=== PATIENT | female | born 1940 | race Caucasian/White ===

== ENCOUNTER → 2025-02-15 | Outpatient (CLI) | payer MEDICARE, BC, SELFPAY ==
[2025-02-15 14:27] LABS: Basophils # (Auto) 0.1 Thou/mm3 (0.0-0.2); Basophils % (Auto) 1 % (0-2.5); Eosinophils % (Auto) 1 % (0-10); Hematocrit 43.7 % (36.0-46.0); Hemoglobin 15.1 g/dL (12.0-16.0); Immature Granulocytes % (Auto) 0 % (0-0); Immature Granulocytes Auto 0.01 Thou/mm3 (0.00-0.00); Lymphocytes # (Auto) 1.2 Thou/mm3 (1.0-4.8); Lymphocytes % (Auto) 20 % (10-50); Mean Corpuscular HGB Conc 34.6 g/dl (31.0-37.0); Mean Corpuscular Hemoglobin 34.1 pg (25.0-35.0); Mean Corpuscular Volume 99 fL (80-100); Monocytes # (Auto) 0.5 Thou/mm3 (0.0-0.8); Monocytes % (Auto) 7 % (0-12); Neutrophils # (Auto) 4.5 Thou/mm3 (1.8-7.7); Neutrophils % (Auto) 71 % (37-80); Nucleated Red Blood Cell % 0 /100 WBC (0); Platelet Count 259 Thou/mm3 (140-440); RDW Standard Deviation 46.5 fL (36.4-46.3); Red Blood Count 4.43 Miln/mm3 (4.00-5.20); White Blood Count 6.3 Thou/mm3 (3.6-11.0)
[2025-02-15 14:34] LABS: Sed Rate (ESR) 10 mm/hr (0-30)
[2025-02-15 14:54] LABS: Alanine Aminotransferase < 7 U/L (10-49); Albumin, Serum 4.1 gm/dL (3.4-4.8); Albumin/Globulin Ratio 1.6 (1.2-2.2); Alkaline Phosphatase 77 U/L (46-116); Anion Gap 10 (7-16); Aspartate Amino Transferase 15 U/L (0-34); BUN/Creatinine Ratio 20 Ratio (12-20); Bilirubin,Total 0.8 mg/dL (0.3-1.2); Blood Urea Nitrogen 14 mg/dL (9-23); Carbon Dioxide 29.3 mMol/L (20.0-31.0); Chloride 105 mMol/L (98-107); Creatinine (Component) 0.7 mg/dL (0.6-1.3); Globulin 2.6 gm/dL (2.3-3.5); Glucose 109 mg/dL (74-106); Osmolality,Calculated 288 (275-295); Potassium 4.2 mMol/L (3.4-5.1); Sodium 144 mMol/L (136-145); Thyroid Stimulating Hormone 1.89 uIU/mL (0.55-4.78); Total Protein 6.7 gm/dL (5.7-8.2); eGFR > 60 See Note
== END | disposition home or self-care (01) ==
LOC: COPL 13:45
PROVIDERS: PCP Internal Medicine; Referring Provider Internal Medicine; Visit Provider Internal Medicine
DX: E03.9 Hypothyroidism, unspecified (principal)
CPT/HCPCS: 36415; 80053; 84443; 85025; 85652

== ENCOUNTER 2025-06-08 15:29 | Inpatient (IN) | payer MEDICARE, BC, SELFPAY ==
[2025-06-08] VITALS (19 sets, daily range): BP systolic 95–150; BP diastolic 69–90; PULSE 79–109; RESP 14–85; TEMP 36.2–36.4; O2SAT 75–100; BMI 36.2
--- NOTE | 2025-06-08 15:31 | EKG_ITS ---
[facility] Test Date: 2025-06-08 Pat Name: MEGHNA OLIVEROS Department: Room: - Gender: Female Security Incident Response Specialist: : 1940 Requested By: Dany Sales Order Number: [id number] Reading MD: Dany Sales Measurements Intervals [place] Rate: 101 P: 48 VT: 222 QRS: -70 QRSD: 115 T: 94 QT: 393 QTc: 511 Interpretive Statements SINUS TACHYCARDIA WITH FIRST DEGREE AV BLOCK WITH OCCASIONAL VENTRICULAR PREMATURE COMPLEXES LEFT AXIS DEVIATION [QRS AXIS < -30] LEFT VENTRICULAR HYPERTROPHY AND ST-T CHANGE [VOLTAGE CRITERIA PLUS ST/T ABNORMALITY] ANTERIOR MYOCARDIAL INFARCTION , PROBABLY RECENT [40+ ms Q WAVE AND/OR ST/T ABNORMALITY IN V3/V4] ACUTE NV No previous ECG available for comparison /store/S0/[id number].pdf
--- NOTE | 2025-06-08 15:32 | EDNOTE_ITS ---
ED SOB =RME/HPI General Chief Complaint: Shortness of Breath/Dyspnea Stated Complaint: SOB Time Seen by Provider: 06/08/25 15:31 Arrival date/time: 06/08/25 15:29 Limitations: no limitations RME / HPI RME / HPI Narrative: DR. AVILA MAIN ED EVALUATION: 84-year-old female with a history of hypertension, diabetes, glaucoma, and hypothyroidism, on medications including enalapril, furosemide, levothyroxine, metoprolol, potassium chloride, and prednisone, presents to the Emergency Department [facility] for shortness of breath and generalized weakness ongoing for a over a week but worse in the last couple of days. She went to see her stamp analyst Dr. Reddy about a week ago but symptoms are still getting worse. On EMS arrival, she was tachycardic to 108 bpm and hypoxic with O2 saturations between 72?75% while on a non-rebreather mask at 6 L. Allergies include codeine (severe breathing difficulty), erythromycin (rash, itching), penicillins (rash, swelling), benzonatate, ciprofloxacin, and levofloxacin (stiff joints, paralysis). Related Data Home Medications ?Medication ?Instructions ?Recorded ?Confirmed enalapril maleate 20 mg tablet 20 mg PO BID 11/20/18 0 06/08/25 furosemide 20 mg tablet (Lasix) 40 mg PO QDAY 11/20/18 06/08/25 levothyroxine 75 mcg capsule 75 mcg PO QDAY 11/20/18 0 06/08/25 metoprolol succinate 100 mg 100 mg PO BID 11/20/18 tablet,extended release 24 hr potassium chloride 20 mEq 20 meq PO QDAY 11/20/1805/18 tablet,extended release Held on 06/08/25. Instructions: stopped taking lasix prednisone 5 mg tablet 5 mg PO QDAY 11/20/18 Allergies Allergy/AdvReac Type Severity Reaction Status Date / Time codeine Allergy Severe SEVERE Verified 06/08/25 15:54 DIFF. BREATHING erythromycin base Allergy Intermediate RASH,ITCHIN Verified 06/08/25 15:54 G Penicillins Allergy Intermediate RASH,SWELLI Verified 06/08/25 15:54 NG benzonatate (From Tessalon Allergy Verified 06/08/25 15:54 Basil) ciprofloxacin (From Cipro) Allergy Verified 06/08/25 15:54 levofloxacin AdvReac Severe STIFF Verified 06/08/25 15:54 JOINTS,PARALYZED latex AdvReac Intermediate RASH Verified 06/08/25 15:54 Review of Systems Review of Systems Systems Reviewed: All systems reviewed, normal except as documented Past Medical History Social History SMOKING STATUS: Never smoker SUBSTANCE USE: does not use ALCOHOL: Never ED Exam General Limitations: Present no limitations General appearance: Present alert and in distress (hypoxic, 72-75% while on a non-rebreather mask at 6 L) Head Head exam: Present atraumatic, normocephalic and normal inspection Eye Eye exam: Present normal appearance, PERRL and EOMI ENT ENT exam: Present normal exam, normal oropharynx and mucous membranes moist Neck Neck exam: Present normal inspection, full ROM and trachea midline Chest Chest inspection: Present normal inspection and symmetric chest wall rise Respiratory Respiratory exam: Present respiratory distress (hypoxic at 72-75% while on a non-rebreather mask at 6 L) Cardiovascular Cardiovascular exam: Present normal rhythm, tachycardia and normal heart sounds Abdominal Exam Abdominal exam: Present soft and normal bowel sounds Extremities Exam Extremities exam: Present normal inspection and full ROM Back Exam Back exam: Present normal inspection and full ROM Neurological Exam Neurological exam: Present alert, oriented X3 and CN II-XII intact Psychiatric Psychiatric exam: Present normal affect and normal mood Skin Skin exam: Present warm, dry, intact and normal color Course Quality Measures none Orders Category Date Time Status CT Screening NOW Care 06/08/25 15:34 Active Coating Machine Operator Helper NOW Care 06/08/25 15:32 Active Continuous Pulse Oximetry NOW Care 06/08/25 15:31 Completed EKG (ED ONLY) *Do not use* NOW Care 06/08/25 15:32 Completed EKG (ED ONLY) *Do not use* NOW Care 06/08/25 17:09 Completed Pierre [Urinary Catheter] QS Care 06/08/25 16:18 Active Insert IV NOW Care 06/08/25 16:[address] angio chest Stat Exams 06/08/25 15:31 Completed EKG (ED Only) Stat Exams 06/08/25 15:31 Draft EKG (ED Only) Stat Exams 06/08/25 17:09 Draft XR chest 1V portable Stat Exams 06/08/25 15:31 Completed Arterial Blood Gas Stat Lab 06/08/25 15:53 Completed B-Type Natriuretic Peptide Stat Lab 06/08/25 15:45 Completed Blood Culture (Lab) Stat Lab 06/08/25 15:50 Received CBC Stat Lab 06/08/25 15:45 Completed Carboxyhemoglobin Stat Lab 06/08/25 15:45 Completed Comprehensive Metabolic Panel Stat Lab 06/08/25 15:45 Completed Drug Screen,Urine Stat Lab 06/08/25 16:37 Completed Free T4 (Free Thyroxine) Stat Lab 06/08/25 15:45 Completed Magnesium Stat Lab 06/08/25 15:45 Completed PTT [Partial Thromboplastin Time] Stat Lab 06/08/25 18:13 Completed Prothrombin Time with INR Stat Lab 06/08/25 15:45 Completed Troponin I Stat Lab 06/08/25 15:45 Completed Troponin I Stat Lab 06/08/25 18:13 Completed Urinalysis, C/S if Indicated Stat Lab 06/08/25 16:37 Completed Urine Culture Stat Lab 06/08/25 16:37 Received Aspirin Med 06/08/25 16:58 Discontinued 325 mg PO X1 ONE Heparin Inj Med 06/08/25 16:58 Discontinued 4,000 unit IV X1 ONE Heparin Inj Med 06/08/25 19:00 Discontinued 7,900 unit IV X1 ONE Heparin/D5w 25K 250 ML Ivpb [Heparin in D5w Ivpb] Med 06/08/25 17:00 Discontinued 25,000 unit in 250 ml IV 10.113 units/kg/hr Heparin/D5w 25K 250 ML Ivpb [Heparin in D5w Ivpb] Med 06/08/25 17:45 Discontinued 25,000 unit in 250 ml IV 18 units/kg/hr POTASSIUM CHL 10 mEq IVPB [Kcl Ivpb] Med 06/08/25 17:16 Discontinued 10 meq in 100 ml IV Q1H Potassium Chloride [K-Dur] Med 06/08/25 17:16 Discontinued 40 meq PO X1 ONE Oxygen Delivery NOW RT 06/08/25 15:31 Active Vital Signs Vital signs: Vital Signs Pulse Rate 107 H 06/08/25 15:31 Respiratory Rate 24 H 06/08/25 15:31 Blood Pressure 110/69 06/08/25 15:31 Pulse Oximetry (%) 75 L 06/08/25 15:31 Oxygen Delivery Method Nasal Cannula 06/08/25 15:31 Oxygen Flow Rate 6 06/08/25 15:31 Shortness of Breath / Dyspnea MDM Narrative MDM Narrative:: I, Sona Akhtar, am scribing for and in the presence of Dr. Avila. 84-year-old female with a history of hypertension, diabetes, glaucoma, and hypothyroidism, on medications including enalapril, furosemide, levothyroxine, metoprolol, potassium chloride, and prednisone, presents to the Emergency Department [facility] for shortness of breath and generalized weakness ongoing for a over a week but worse in the last couple of days. She went to see her stamp analyst Dr. Reddy about a week ago but still getting worse. The patient presents in significant hypoxic respiratory distress with a history and exam findings concerning for acute decompensated heart failure versus an infectious process such as pneumonia. Given her high oxygen requirement and bilateral lower extremity edema, fluid overload with possible heart failure exacerbation is likely. Broad workup including labs, chest X-ray, and chest CTA will be ordered, with ECG monitoring given her tachycardia and cardiac history. Consider IV diuretics and advanced airway management if respiratory status worsens. My interpretation: EKG performed at 1553 hours, sinus tachycardia, rate 101, left axis deviation, LVH, Q wave in lead 3, AVF, and V1-V3; ST elevation in V1- V6 and in inferior leads; reciprocal ST depression in lead 1 and AVL. Discussed the case with stamp analyst Dr. Alejandre at [facility] and following their recommendations. Since there are Q waves then it is not an acute STEMI and no need for corn lab technician at this time. Also, discussed the case with car diologist Dr. Pradhan, who will consult an admission to the hospitalist. We will order a chest CTA and re-evaluate. Patient data External records reviewed:: [facility] previous records and EMS form Clinical information provided by:: patient and EMS Social determinants that could affect healthcare access:: none Patient has the following chronic illnesses:: History of hypertension, diabetes, glaucoma, and hypothyroidism, on medications including enalapril, furosemide, levothyroxine, metoprolol, potassium chloride, and prednisone. Allergies include codeine (severe breathing difficulty), erythromycin (rash, itching), penicillins (rash, swelling), benzonatate, ciprofloxacin, and levofloxacin (stiff joints, paralysis). How is presenting disease/condition affected by chronic disease/condition?: exacerbated by Evaluation data The following diagnostics were reviewed and interpreted by me:: lab results, radiology exam(s) and EKG tracing(s) Lab and/or radiology exams considered but not ordered:: none Interpretation Summary: My interpretation: EKG performed at 1553 hours, sinus tachycardia, rate 101, left axis deviation, LVH, Q wave in lead 3, AVF, and V1-V3; ST elevation in V1- V6 and in inferior leads; reciprocal ST depression in lead 1 and AVL. Procedure(s): XR chest 1V portable Accession Number(s): [id number] cc: Jere Ellis MD; NO PRIMARY/FAMILY,PHYSICIAN; Dany Avila MD~ Examination: AP chest single view TECHNIQUE: AP portable upright chest single view Date and time: June 08, 2025, 1612 hours, INDICATIONS: Low O2 saturation, SOB today. FINDINGS: Mild to moderate enlargement cardiac contour Large retrocardiac gastric hernia. No pulmonary edema or pneumonia. Prominent osteopenia IMPRESSION: Mild to moderate enlargement cardiac contour. No pulmonary edema or pneumonia. Dictated By: Jere Ellis MD -- Procedure(s): CT angio chest Accession Number(s): [id number] cc: Jere Ellis MD; NO PRIMARY/FAMILY,PHYSICIAN; Dany Avila MD~ Examination: CTA chest with intravenous contrast 2-D reconstructions 3-D reconstructions, vascular Date and time of exam: June 08, 2025, 1700 hours INDICATIONS: Onset shortness of breath hypoxia today CTDI: vol (mGy) 15 DLP: (mGycm) 339 Technique: Multiple axial sections of the thorax have been obtained. 3 mm slice thickness, from below the hemidiaphragms to above the apices of the lungs. Mediastinal and lung density settings have been obtained. 2-D sagittal and coronal reconstructions. 3-D angiographic renderings, 3-D volume renderings, 3D post processing, vascular maximum intensity projections obtained. Contrast administered is 100 cc Isovue 370 intravenous. Low dose protocols were performed. One or more of the following dose reduction techniques were used; automated exposure control, adjustment of the mA and/or KV according to patient size, use of iterative reconstruction technique. Findings: Large multiple bilateral pulmonary artery emboli, including saddle type emboli in the right and left main pulmonary artery segments No thoracic aortic aneurysmal dilatation Moderate enlargement cardiac contour, no shawn pulmonary edema, no pulmonary infarction Liver is irregular in contour, no visualized liver or splenic lesions Moderate osteopenia IMPRESSION: Positive for large multiple bilateral pulmonary artery emboli, including saddle type emboli in the right and left main pulmonary artery segments Dictated By: Jere Ellis MD Medications / Prescriptions Medications or Prescriptions considered but not ordered:: none Medication administrations:: Medication Administration History Acetaminophen (Acetaminophen 325 Mg Tablet) 650 mg PO Q4HR PRN PRN Reason: Pain Scale 1-3 or Fever Stop: 07/08/25 18:12 Furosemide (Furosemide Inj 10 Mg/Ml Vial 2 Ml) 20 mg IVP QDAY KARINA Stop: 07/09/25 11:44 Last Admin: 06/09/25 11:50 Dose: 20 mg Documented By: [employer] Heparin Sodium/Dextrose (Heparin In D5w Ivpb) 25,000 unit in 250 mls @ 17.997 m ls/hr IV .[id number] KARINA; Protocol Stop: 06/23/25 11:59 Last Admin: 06/09/25 11:54 Dose: 17.89 units/kg/hr, 17.997 mls/hr Documented By: LONNIE Co-signed By: DALIA Levothyroxine Sodium (Levothyroxine Sodium 25 Mcg Tablet) 75 mcg PO ACBR KARINA Stop: 07/09/25 07:04 Last Admin: 06/09/25 08:27 Dose: 75 mcg Documented By: LONNIE Pantoprazole Sodium (Pantoprazole Inj 40 Mg Vial) 40 mg IVP QDAY [facility] Stop: 07/09/25 08:59 Last Admin: 06/09/25 08:29 Dose: 40 mg Documented By: LONNIE Prednisone (Prednisone 5 Mg Tablet) 5 mg PO QDAY [facility] Stop: 07/09/25 11:44 Last Admin: 06/09/25 11:51 Dose: 5 mg Documented By: LONNIE Discontinued Medications Aspirin (Aspirin 325 Mg Tablet) 325 mg PO X1 ONE Stop: 06/08/25 16:59 Last Admin: 06/08/25 18:25 Dose: Not Given Documented By: GERBER Non-Admin Reason: Unable to Swallow Aspirin (Aspirin 81 Mg Chew) 324 mg PO X1 ONE Stop: 06/08/25 18:27 Last Admin: 06/08/25 19:47 Dose: Not Given Documented By: BD Non-Admin Reason: Cancelled by Provider Heparin Sodium (Porcine) (Heparin Sod Inj 5000 Unit/Ml Vial) 4,000 unit IV X1 ONE; Protocol Stop: 06/08/25 16:59 Last Admin: 06/08/25 18:29 Dose: Not Given Documented By: DB Non-Admin Reason: Cancelled by Provider Heparin Sodium (Porcine) (Heparin Sod Inj 5000 Unit/Ml Vial) 7,900 unit 80 unit/kg (7900 unit) IV X1 ONE; Protocol Stop: 06/08/25 19:01 Last Admin: 06/08/25 20:26 Dose: Not Given Documented By: BD Non-Admin Reason: Cancelled by Provider Heparin Sodium (Porcine) (Heparin Sod Inj 5000 Unit/Ml Vial) 8,000 unit IV PRN ONE Stop: 06/09/25 11:40 Last Admin: 06/09/25 11:54 Dose: 8,000 unit Documented By: LONNIE Co-signed By: DALIA Comments: 26.4 Heparin Sodium/Dextrose (Heparin In D5w Ivpb) 25,000 unit in 250 mls @ 10 mls/hr IV .Q24H KARINA; Protocol Stop: 06/22/25 16:59 Last Admin: 06/08/25 18:29 Dose: Not Given Documented By: GERBER Non-Admin Reason: Cancelled by Provider Potassium Chloride (Kcl Ivpb) 10 meq in 100 mls @ 100 mls/hr IV Q1H KARINA Stop: 06/08/25 19:15 Last Infusion: 06/08/25 21:24 Dose: Infused Documented By: Admin: 06/08/25 20:04 Dose: 75 mls/hr Documented By: Infusion: 06/08/25 19:51 Dose: Infused Documented By: Infusion: 06/08/25 18:59 Dose: 75 mls/hr Documented By: Admin: 06/08/25 18:38 Dose: 100 mls/hr Documented By: GERBER Heparin Sodium/Dextrose (Heparin In D5w Ivpb) 25,000 unit in 250 mls @ 17.799 mls/hr IV .Q14H3M KARINA; Protocol Stop: 06/22/25 17:44 Last Admin: 06/08/25 19:32 Dose: Not Given Documented By: BD Non-Admin Reason: Cancelled by Provider Sodium Chloride (Ns) 250 mls @ 100 mls/hr IV .Q2H30M ONE Stop: 06/08/25 20:47 Last Admin: 06/08/25 18:37 Dose: 100 mls/hr Documented By: GERBER Heparin Sodium/Dextrose (Heparin In D5w Ivpb) 25,000 unit in 250 mls @ 17.799 mls/hr IV .Q14H3M KARINA; Protocol Stop: 06/22/25 18:59 Last Admin: 06/08/25 20:26 Dose: Not Given Documented By: BD Non-Admin Reason: Cancelled by Provider Potassium Chloride (Kcl Ivpb) 10 meq in 100 mls @ 100 mls/hr IV Q1H KARINA Stop: 06/09/25 00:31 Last Admin: 06/09/25 04:00 Dose: 50 mls/hr Documented By: Infusion: 06/09/25 03:58 Dose: Infused Documented By: Admin: 06/09/25 01:58 Dose: 50 mls/hr Documented By: Infusion: 06/09/25 01:55 Dose: Infused Documented By: Admin: 06/08/25 23:55 Dose: 50 mls/hr Documented By: Infusion: 06/08/25 23:55 Dose: Infused Documented By: Admin: 06/08/25 22:07 Dose: 50 mls/hr Documented By: Pantoprazole Sodium (Pantoprazole 20 Mg Tablet) 20 mg PO X1 ONE Stop: 06/08/25 19:30 Last Admin: 06/08/25 19:54 Dose: Not Given Documented By: BD Non-Admin Reason: NPO Potassium Chloride (Potassium Chloride 20 Meq Tabcr) 40 meq PO X1 ONE Stop: 06/08/25 17:17 Last Admin: 06/08/25 18:24 Dose: Not Given Documented By: DB Non-Admin Reason: Unable to Swallow Tenecteplase (Tenecteplase Inj 50 Mg Vial) 50 mg IV X1 ONE Stop: 06/08/25 20:28 Last Admin: 06/08/25 21:52 Dose: 50 mg Documented By: Co-signed By: RENEE see above if any Consultations Consultation(s) initiated? (list below): Yes Consultation #1 (Physician, Specialty, Details): [facility] contacted for ND and EKG sent. Time: 16:21 Consultation #2 (Physician, Specialty, Details): At this time, we are still waiting for call back for stamp analyst at [facility]. Time: 16:40 Consultation #3 (Physician, Specialty, Details): 1652: Discussed test HPI, PMHx, lab, radiology results and/or management with stamp analyst Dr. Alejandre at [facility] and following their recommendations. Since there are Q waves then it is not an acute STEMI and no need for corn lab technician at this time. 1655: Discussed test HPI, PMHx, lab, radiology results and/or management with stamp analyst Dr. Pradhan. Will consult an admission to the hospitalist. 1746: Discussed test HPI, PMHx, lab, radiology results and/or management dry starch supervisor Dr. Lopez. Will consult an admission to the hospitalist. Diagnosis Shortness of Breath Differential Diagnosis: other (Acute decompensated heart failure, pneumonia, and pulmonary embolism.) Most likely diagnosis given after review of the tests above:: Pulmonary embolism Hypoxia Admission Indicated Admission indicated?: indicated Admission Request Was there a request for admission?: No Disposition Plan Disposition Plan: Discharge Discharge Attestation Discharge Attestation: The patient and all family members were given an opportunity to ask questions and understood the discharge instructions. Discharge instructions specifically effects, indications for sooner follow up or return to the emergency department, and the expected course of current diagnosis. Patient condition: Stable Critical Care Time Critical Care Time Critical Care Time: Yes Total Critical Care Time (min.): 65 Attestation: The high probability of sudden, clinically significant deterioration in the patient?s condition required the highest level of my preparedness to intervene urgently. The services I provided to this patient were to treat and/or prevent clinically significant deterioration. Services included the following: chart data review, reviewing nursing notes and/or old charts, documentation time, managing consultant collaboration regarding findings and treatment options, medication orders and management, direct patient care, vital sign assessments and ordering, interpreting and reviewing diagnostic studies and lab tests. Aggregate critical care time includes only time during which I was engaged in work directly related to the patient?s care, as described above, whether at bedside or elsewhere in the Emergency Department. It did not include time spent performing other reported procedures or the services of residents, students, nurses or physician assistants. Discharge Plan Plan Patient Disposition: Admit Acute Care w/in Hospital Problem List Clinical Impression: Myocardial infarction, Pulmonary embolism, Acute saddle pulmonary embolism, Hypoxia
[2025-06-08 16:01] LABS: Base Excess 4 (-3-3); HCO3 26 mEq/L (20-26); Inspired Oxygen, FIO2 15 %; O2 Saturation 82 % (91-98); PCO2 33 mmHg (32.0-48.0); pH, Arterial 7.51 (7.35-7.45)
[2025-06-08 16:04] LABS: Allen Test Performed/OK; Puncture Site Right Radial
[2025-06-08 16:04] LABS: Carboxyhemoglobin 3.7 % (0.5-1.5)
[2025-06-08 16:05] LABS: Basophils # (Auto) 0.0 Thou/mm3 (0.0-0.2); Basophils % (Auto) 0 % (0-2.5); Eosinophils # (Auto) 0.0 Thou/mm3 (0.0-0.5); Eosinophils % (Auto) 0 % (0-10); Hematocrit 44.2 % (36.0-46.0); Hemoglobin 15.2 g/dL (12.0-16.0); Immature Granulocytes Auto 0.02 Thou/mm3 (0.00-0.00); Lymphocytes # (Auto) 1.5 Thou/mm3 (1.0-4.8); Lymphocytes % (Auto) 16 % (10-50); Mean Corpuscular HGB Conc 34.4 g/dl (31.0-37.0); Mean Corpuscular Hemoglobin 33.9 pg (25.0-35.0); Mean Corpuscular Volume 99 fL (80-100); Monocytes # (Auto) 0.9 Thou/mm3 (0.0-0.8); Monocytes % (Auto) 10 % (0-12); Neutrophils # (Auto) 6.7 Thou/mm3 (1.8-7.7); Neutrophils % (Auto) 73 % (37-80); Nucleated Red Blood Cell # 0.00 Thou/mm3 (0.00-0.00); Nucleated Red Blood Cell % 0 /100 WBC (0); Platelet Count 207 Thou/mm3 (140-440); RDW Standard Deviation 47.6 fL (36.4-46.3); Red Blood Count 4.48 Miln/mm3 (4.00-5.20); White Blood Count 9.2 Thou/mm3 (3.6-11.0)
[2025-06-08 16:06] LABS: PO2 44 mmHg (83-108)
[2025-06-08 16:22] LABS: B-Type Natriuretic Peptide 323 pg/mL (0-100)
[2025-06-08 16:23] LABS: INR 1.2 (0.9-1.3); Prothrombin Time 12.6 Seconds (9.0-12.2)
--- NOTE | 2025-06-08 16:27 | PC.CM ---
Addendum entered by Jhonny Rice RN 06/08/25 17:12: 1700- Received call from Dr. Noriega in ER, he has spoken to manager beverage at [facility] and was informed that patient is not having a STEMI and that they are not a candidate for the SEAL DELIVERY VEHICLE OFFICER at this time. He was provided with recommendations and he will implement those and consult with cardiology. Hold transfer at this time. Original Note: 1600- Received call from ER CN, requesting to start transfer for STEMI. Packet created and sent to [facility] via [employer], spoke with SONYA Crowe and provided clinical information. She will review with her team and call us back.
[2025-06-08 16:43] LABS: Alanine Aminotransferase 17 U/L (10-49); Albumin, Serum 4.1 gm/dL (3.4-4.8); Albumin/Globulin Ratio 1.5 (1.2-2.2); Alkaline Phosphatase 83 U/L (46-116); Anion Gap 15 (7-16); Aspartate Amino Transferase 40 U/L (0-34); BUN/Creatinine Ratio 21 Ratio (12-20); Bilirubin,Total 0.8 mg/dL (0.3-1.2); Blood Urea Nitrogen 21 mg/dL (9-23); Calcium 9.7 mg/dL (8.3-10.6); Calcium (Corrected) 9.7 mg/dL (8.5-10.1); Carbon Dioxide 25.8 mMol/L (20.0-31.0); Chloride 96 mMol/L (98-107); Creatinine (Component) 1.0 mg/dL (0.6-1.3); Estimated Creatinine Clearance 47.0 mL/min (>60); Free T4 (Free Thyroxine) 1.60 ng/dL (0.89-1.76); Globulin 2.8 gm/dL (2.3-3.5); Glucose 144 mg/dL (74-106); Magnesium 2.1 mg/dL (1.6-2.6); Osmolality,Calculated 279 (275-295); Potassium 2.8 mMol/L (3.4-5.1); Sodium 137 mMol/L (136-145); Total Protein 6.9 gm/dL (5.7-8.2); eGFR 55 See Note
[2025-06-08 16:46] LABS: Troponin I 0.307 ng/mL (0.0-0.045)
[2025-06-08 16:52] LABS: Collection Type, Urine Catheter
--- NOTE | 2025-06-08 17:09 | EKG_ITS ---
[facility] Test Date: 2025-06-08 Pat Name: MEGHNA OLIVEROS Department: Room: - Gender: Female Acute Care Physician: : 1940 Requested By: Dany Sales Order Number: [id number] Reading MD: Dany Sales Measurements Intervals [place] Rate: 96 P: 66 LA: 222 QRS: -66 QRSD: 126 T: 119 QT: 359 QTc: 455 Interpretive Statements SINUS RHYTHM WITH FIRST DEGREE AV BLOCK LEFT AXIS DEVIATION [QRS AXIS < -30] LEFT VENTRICULAR HYPERTROPHY AND ST-T CHANGE [VOLTAGE CRITERIA PLUS ST/T ABNORMALITY] POSSIBLE ANTERIOR MYOCARDIAL INFARCTION , OF INDETERMINATE AGE [30 ms Q WAVE IN V3/V4, OR R < 0.2 mV IN V4] Compared to ECG 06/08/2025 15:53:55 Sinus tachycardia no longer present Ventricular premature complex(es) no longer present ST (T wave) deviation still present Myocardial infarct finding still present /store/S0/[id number]/[id number]
[2025-06-08 17:10] LABS: Amphetamine/Methamp Scrn,U Negative (Negative); Barbiturate Screen,Urine Negative (Negative); Benzodiazepines Screen,Urine Negative (Negative); Benzoylecgonine Screen, Ur Negative (Negative); Fentanyl Screen,Urine Negative (Negative); Opiate Screen,Urine Negative (Negative); THC Screen,Urine Negative (Negative)
[2025-06-08 17:26] LABS: Amorphous Crystals,Urine Present (Absent); Bacteria,Urine 3+; Bilirubin,Urine Negative (Negative); Blood,Urine Negative (Negative); Clarity,Urine Turbid (Clear/Hazy); Color,Urine Yellow (Lt Yel-Yel); Glucose, Urine Negative (Negative); Granular Casts,Urine 1 /hpf (0-1); Hyaline Casts,Urine 2 /hpf (0-1); Ketones,Urine Negative (Negative); Leukocyte Esterase,Urine Positive (Negative); Nitrite,Urine Negative (Negative); PH,Urine 5.5 (5.0-7.0); Protein,Urine Trace (Neg - Trace); RBC,Urine 4 /hpf (0-3); Specific Gravity,Urine 1.019 (1.001-1.035); Squamous Epithelial Cell,Urine 1 /hpf (0-5); Urobilinogen,Urine 2.0 mg/dL (0.0-1.0); WBC,Urine 118 /hpf (0-5)
[2025-06-08 17:31] LABS: Culture Indicated,Urine Yes
[2025-06-08] MEDS: SODIUM CHLORIDE 0.9% 250 ML 250 ML 100 ML IV (18:37)
[2025-06-08] MEDS: POTASSIUM CHL 10 mEq IVPB 10 MEQ/100 ML BAG 100 MEQ IV (18:38)
[2025-06-08 18:49] LABS: Partial Thromboplastin Time 27.1 Seconds (22.0-36.0)
[2025-06-08 19:04] LABS: Troponin I 0.720 ng/mL (0.0-0.045)
[2025-06-08 19:06] LABS: Lactate (Lactic Acid) 2.0 mMol/L (0.4-2.0)
--- NOTE | 2025-06-08 19:24 | ECHO_ITS ---
Transthoracic Echo Report Ht (in): 65 Wt (lb): 218 Exam Location: Echo Lab Status: Inpatient [employer] History Teacher: Rebeca Crews Indications: Procedure Performed: BP: 111 / 85 HR: Technical Quality: Technically difficult study MEASUREMENTS (Male / Female) Normal Values 2D ECHO LV Diastolic Diameter PLAX 4.2 cm 4.2 - 5.9 / 3.9 - 5.3 cm LV Systolic Diameter PLAX 2.9 cm IVS Diastolic Thickness 0.9 cm 0.6 - 1.0 / 0.6 - 0.9 cm LVPW Diastolic Thickness 1.0 cm 0.6 - 1.0 / 0.6 - 0.9 cm LV Relative Wall Thickness 0.5 LVOT Diameter 2.4 cm M-MODE Aortic Root Diameter MM 3.1 cm AV Cusp Separation MM 1.8 cm DOPPLER AV Peak Velocity 116.0 cm/s AV Peak Gradient 5.4 mmHg AV Mean Gradient 3.0 mmHg AV Velocity Time Integral 22.0 cm LVOT Peak Velocity 65.0 cm/s LVOT Peak Gradient 1.7 mmHg LVOT Velocity Time Integral 9.6 cm AV Area Cont Eq vti 2.0 cm? AV Area Cont Eq pk 2.5 cm? TR Peak Velocity 343.7 cm/s TR Peak Gradient 47.2 mmHg PV Peak Velocity 69.2 cm/s PV Peak Gradient 1.9 mmHg FINDINGS Left Ventricle Normal left ventricular size, wall thickness, systolic function with no obvious regional wall motion abnormalities. Normal left ventricular diastolic filling pattern for age. The ejection fraction is visually estimated at 55 %. Right Ventricle The right ventricular size is moderately increased. The right ventricular systolic function is severely decreased. The RVSP is 72 mmHg. RAP 15. Left Atrium The left atrium is normal by two-dimensional, color flow and Doppler imaging with no structural abnormalities, no thrombus formation present. Right Atrium The right atrium is normal by two-dimensional imaging, color flow and Doppler imaging with no structural abnormalities, no thrombus formation present. Atrial Septum The interatrial septum appears normal with no evidence of a shunt. Aorta The aorta is normal by two-dimensional, color flow and Doppler interrogation. Mitral Valve The mitral valve is normal by two-dimensional, color flow and Doppler interrogation. There is no significant mitral valve regurgitation, stenosis or prolapse. Aortic Valve The aortic valve is trileaflet and normal by two-dimensional, color flow and Doppler interrogation. There is no significant aortic valve regurgitation. Tricuspid Valve The tricuspid valve is normal by two-dimensional, color flow and Doppler interrogation. There is moderate to severe tricuspid valve regurgitation. Pulmonic Valve The pulmonic valve is not well visualized. There is no significant pulmonic valve regurgitation. Vessels Less than 50% respiratory change in dimension of the inferior vena cava abnormal. Pericardium The pericardium is normal by two-dimensional imaging. There is no significant pericardial effusion. CONCLUSIONS Indication: pulmonary embolism Normal LV size and function. Approximate ejection fraction is 55-60%. The RV size is moderately increased. with pressure and volume overload RV systolic function is severely decreased. The RVSP is 72 mmHg. RAP 15. Moderate to severe TR. Sissy Whitfield (Electronically Signed) Final Date: 09 June 2025 09:06
--- NOTE | 2025-06-08 19:34 | PC.NURSE ---
called non inhouse pharmacy they dont know why that heparin is on hold will push through
--- NOTE | 2025-06-08 19:48 | PC.LAC ---
per. keep pt npo even though dr. rahman said to give jello, advised non admin aspirin. ok to give heparin.
--- NOTE | 2025-06-08 19:54 | PC.NURSE ---
will change protonix from po to iv
--- NOTE | 2025-06-08 20:02 | XR_ITS ---
Examination: Venous duplex lower extremity sonogram, bilateral. Date and time of exam: June 08, 2025 10:16 PM INDICATIONS: Extensive pulmonary artery emboli on CT chest study today Technique: Multiple sonographic images of the deep venous system have been obtained. B-mode/2-D grayscale imaging of vascular structures and Doppler spectral analysis (waveforms) and color performed Both legs are examined. Findings: Deep venous systems do not demonstrate abnormal echogenicity. Pain limits visualization of right mid and distal superficial femoral vein as well as left common femoral and left superficial femoral popliteal and peroneal veins All visualized deep veins exhibit compressibility. All visualized deep veins exhibit augmentation. Impression: Limited study, no DVT demonstrated
[2025-06-08] MEDS: POTASSIUM CHL 10 mEq IVPB 10 MEQ/100 ML BAG 75 MEQ IV (20:04)
--- NOTE | 2025-06-08 20:05 | PC.NURSE ---
holding heparin per. as pt is deciding for Tenecteplase..
--- NOTE | 2025-06-08 20:27 | PC.NURSE ---
PER CANCEL HEPARIN PT IS GOING TO DO TNK
--- NOTE | 2025-06-08 21:06 | ESCONSULT_ITS ---
HPI Data of Consult Requesting Physician: Khoa Lopez MD Admitting Provider: Khoa Lopez MD Attending Provider: Khoa Lopez MD Primary Care Provider: Physician No Primary/Family Consult Narrative History of present illness: Avril Blankenship is an 84F with a history of hypertension, diabetes, glaucoma, and hypothyroidism presented to the ED on 06/08 for shortness of breath and generalized weakness ongoing for a over a week but worse in the last couple of days. She went to see her agricultural services director Dr. Carmelo Franklin on the 01 of June, when she was in marked daily weakness, fatigue, and SOB at rest. She was told she had developed a mild HF and was started on spiriolactone 25mg, Lasix 40mg in addition to her established meds metoprolol succinate 100mg and enalapril 20mg. She was also started on home oxygen 2L which she received two days later. Today, the patient presents in significant hypoxic respiratory distress, with RR 24, satting 75% on 6L NC O2. Patient also reports leg swelling, which has been improving on the diuretics started by Dr Franklin. Patient has had BYRON and has been sleeping with CPAP for 10y. ED Course: The patient's vital signs were HR 107, RR 24, BP 110/69, and oxygen saturation of 75% on 6 L of oxygen via nasal cannula. She was promptly switched to high-flow oxygen at 40 L, but her saturation remained in the mid-80s. A CT Pulmonary Angiogram showed extensive bilateral pulmonary artery emboli, including a saddle embolus. The EKG revealed sinus tachycardia. Laboratory results indicated respiratory alkalosis with a pH of 7.51 and pCO2 of 33, a potassium level of 2.8, and an elevated troponin that hosea from 0.307 to 0.720. Her BNP was 323, and creatinine was 1.0. Meds: enalapril, furosemide, levothyroxine, metoprolol, potassium chloride, and prednisone PSHx: cholecystectomy, hysterectomy, and appendectomy FHx: Mother had two strokes and from the second. Older son has an unspecified heart problem. SHx: Never smoked, never used any drugs, and does not drink alcohol. Pt lives by herself and has two sons who live out of state. cc:: cc: Khoa Lopez MD Exam Vital Signs Temp Pulse Resp BP Pulse Ox O2 Del Method O2 Flow Rate 97.5 F 96 22 H 111/85 H 85 L Oxy Mask 40 06/08/25 15:52 06/08/25 19:24 06/08/25 19:24 06/08/25 16:01 06/08/25 17:35 06/08/25 15:52 06/08/25 19:24 FiO2 100 06/08/25 19:24 Narrative Exam General: Alert and oriented x3, in respiratory distress. Skin: Intact, Warm, no rashes. HEENT: Normocephalic, Atraumatic. Normal neck range of motion, Supple. Trachea midline. Respiratory: Diffuse expiratory wheezing and crackles in lower lung zones b/l present. hypoxic at 72-75% while on a non-rebreather mask at 6 L. Cardiovascular: RRR, normal S1, S2, No murmurs. Distal pulses 2+ Abdomen: Abdomen soft, non-distended, without erythema, or lesions. Normotensive bowel sounds x4. Percussion tympanic. Palpation nontender in all four quadrants. No organomagely. No guarding or rebound present. Musculoskeletal/Extremities: No erythema, swelling, tenderness of any joints. No edema of BLE. DP pulses +2/3 b/l. Full active ROM of all four extremities. Neurologic: NEURO: Oriented x3, cranial nerves II to XII grossly intact. Cerebellar exam ([id number]-[id number], nuba-mi-tgmy) intact. Muscle strength 5/5 on UE and LE b/l, Moves extremities x4. Sensation intact to gross touch along C6-T1 and L2-S1 dermatomes. No focal neurologic deficits noted Psych: Thoughts linear and responses appropriate. Results Labs 06/10/25 02:30 06/10/25 02:30 Labs: Short CBC 06/08/25 Range/Units 15:45 WBC 9.2 (3.6-11.0) Thou/mm3 Hgb 15.2 (12.0-16.0) g/dL Hct 44.2 (36.0-46.0) % Plt Count 207 (140-440) Thou/mm3 BMP 06/08/25 15:45 Sodium 137 Potassium 2.8 L Chloride 96 L Carbon Dioxide 25.8 BUN 21 Creatinine 1.0 Glucose 144 H Calcium 9.7 Cardiac Enzymes 06/08/25 06/08/25 Range/Units 15:45 18:13 Troponin I 0.307 H* 0.720 H* D (0.0-0.045) ng/mL Liver Function 06/08/25 Range/Units 15:45 Total Bilirubin 0.8 (0.3-1.2) mg/dL AST 40 H (0-34) U/L ALT 17 (10-49) U/L Alkaline Phosphatase 83 (46-116) U/L Albumin 4.1 (3.4-4.8) gm/dL Urine 06/08/25 Range/Units 16:37 Urine Color Yellow (Lt Yel-Yel) Urine Clarity Turbid A (Clear/Hazy) Urine pH 5.5 (5.0-7.0) Ur Specific [place] 1.019 (1.001-1.035) Urine Protein Trace (Neg - Trace) Urine Glucose (UA) Negative (Negative) ABG Interpretation ABG results: 06/08/25 15:53 ABG pH 7.51 H ABG pCO2 33 ABG pO2 44 L* ABG HCO3 26 ABG O2 Saturation 82 L ABG Base Excess 4 H Quality Measures Quality Measures none Advance care planning discussed with:: patient Medications Home Medications and Allergies Home Medications ?Medication ?Instructions ?Recorded ?Confirmed ?Type enalapril maleate 20 mg tablet 20 mg PO BID 11/20/18 0 06/08/25 History furosemide 20 mg tablet (Lasix) 40 mg PO QDAY 11/20/18 06/08/25 History levothyroxine 75 mcg capsule 75 mcg PO QDAY 11/20/18 0 06/08/25 History metoprolol succinate 100 mg 100 mg PO BID 11/20/18 History tablet,extended release 24 hr potassium chloride 20 mEq 20 meq PO QDAY 11/20/1805/18 History tablet,extended release Held on 06/08/25. Instructions: stopped taking lasix prednisone 5 mg tablet 5 mg PO QDAY 11/20/18 History Allergies Allergy/AdvReac Type Severity Reaction Status Date / Time codeine Allergy Severe SEVERE Verified 06/08/25 15:54 DIFF. BREATHING erythromycin base Allergy Intermediate RASH,ITCHIN Verified 06/08/25 15:54 G Penicillins Allergy Intermediate RASH,SWELLI Verified 06/08/25 15:54 NG benzonatate (From Tessalon Allergy Verified 06/08/25 15:54 Perles) ciprofloxacin (From Cipro) Allergy Verified 06/08/25 15:54 levofloxacin AdvReac Severe STIFF Verified 06/08/25 15:54 JOINTS,PARALYZED latex AdvReac Intermediate RASH Verified 06/08/25 15:54 Visit Medications Acetaminophen (Acetaminophen 325 Mg Tablet) 650 mg PO Q4HR PRN PRN Reason: Pain Scale 1-3 or Fever Stop: 07/08/25 18:12 Heparin Sodium/Dextrose (Heparin In D5w Ivpb) 25,000 unit in 250 mls @ 17.799 mls/hr IV .Q14H3M KARINA; Protocol Stop: 06/22/25 18:59 Last Admin: 06/08/25 20:26 Dose: Not Given Potassium Chloride (Kcl Ivpb) 10 meq in 100 mls @ 100 mls/hr IV Q1H KARINA Stop: 06/09/25 00:31 Pantoprazole Sodium (Pantoprazole Inj 40 Mg Vial) 40 mg IVP QDAY [facility] Stop: 07/09/25 08:59 Tenecteplase (Tenecteplase Inj 50 Mg Vial) 50 mg IV X1 ONE Stop: 06/08/25 20:28 Discontinued Medications Aspirin (Aspirin 325 Mg Tablet) 325 mg PO X1 ONE Stop: 06/08/25 16:59 Last Admin: 06/08/25 18:25 Dose: Not Given Aspirin (Aspirin 81 Mg Chew) 324 mg PO X1 ONE Stop: 06/08/25 18:27 Last Admin: 06/08/25 19:47 Dose: Not Given Heparin Sodium (Porcine) (Heparin Sod Inj 5000 Unit/Ml Vial) 4,000 unit IV X1 ONE; Protocol Stop: 06/08/25 16:59 Last Admin: 06/08/25 18:29 Dose: Not Given Heparin Sodium (Porcine) (Heparin Sod Inj 5000 Unit/Ml Vial) 7,900 unit 80 unit/kg (7900 unit) IV X1 ONE; Protocol Stop: 06/08/25 19:01 Last Admin: 06/08/25 20:26 Dose: Not Given Heparin Sodium/Dextrose (Heparin In D5w Ivpb) 25,000 unit in 250 mls @ 10 mls/hr IV .Q24H KARINA; Protocol Stop: 06/22/25 16:59 Last Admin: 06/08/25 18:29 Dose: Not Given Potassium Chloride (Kcl Ivpb) 10 meq in 100 mls @ 100 mls/hr IV Q1H KARINA Stop: 06/08/25 19:15 Last Admin: 06/08/25 20:04 Dose: 75 mls/hr Heparin Sodium/Dextrose (Heparin In D5w Ivpb) 25,000 unit in 250 mls @ 17.799 mls/hr IV .Q14H3M KARINA; Protocol Stop: 06/22/25 17:44 Last Admin: 06/08/25 19:32 Dose: Not Given Sodium Chloride (Ns) 250 mls @ 100 mls/hr IV .Q2H30M ONE Stop: 06/08/25 20:47 Last Admin: 06/08/25 18:37 Dose: 100 mls/hr Pantoprazole Sodium (Pantoprazole 20 Mg Tablet) 20 mg PO X1 ONE Stop: 06/08/25 19:30 Last Admin: 06/08/25 19:54 Dose: Not Given Potassium Chloride (Potassium Chloride 20 Meq Tabcr) 40 meq PO X1 ONE Stop: 06/08/25 17:17 Last Admin: 06/08/25 18:24 Dose: Not Given Assessment & Plan Plan Avril Blankenship is an 84F with a history of hypertension, diabetes, glaucoma, and hypothyroidism presented to the ED on 06/08 for worsening shortness of breath and generalized weakness ongoing x1wk. Problems: #Acute saddle pulmonary embolism-acute bilateral pulmonary artery Embolism #Acute congestive heart failure #NSTEMI Type 2-elevated troponins #HTN #DM #Hypothyroidism CTA chest: Positive for large multiple bilateral pulmonary artery emboli, including saddle type emboli in the right and left main pulmonary artery segments CXR: Mild to moderate enlargement cardiac contour. Large retrocardiac gastric hernia. No pulmonary edema or pneumonia. Elevated troponin that hosea from 0.307 to 0.720. In the setting of persistent tachycardia 2/2 PE, this lab finding is most likely to be NSTEMI type II. Notable labs WBC 9.2, hemoglobin 15.2, K 2.8, creatinine 1, BUN 21, glucose 144, BNP 323 Given high oxygen requirement, diffuse wheezing and bilateral lower lobe crackles on lung auscultation, and b/l lower extremity edema, and CXR finding of cardiac silhouette enlargement, fluid overload with possible heart failure exacerbation is likely. EKG performed at 1553 hours, sinus tachycardia, rate 101, left axis deviation, LVH, Q wave in lead 3, AVF, and V1-V3; ST elevation in V1-V6 and in inferior leads; reciprocal ST depression in lead 1 and AVL. Since there are Q waves then it is not an acute STEMI and no need for slab installer at this time. Recommendations: -Pt is given tenecteplase 50mg x1 after exclusion of contraindications to thrombolysis -Trand troponin Q6h -echocardiogram ordered -Keep K+ >4 and Mg >2 at all times according to classic cardiology literature -Consider IV diuretics and advanced airway management if respiratory status worsens. -Cardiac Telemetry in ICU Thank you for cardiology consultation. We appreciate the opportunity to participate in this patient's care. Will continue to follow-up on this patient This case was discussed with my attending physician, Dr. Pradhan, credit professional. Rebecca Monet, PGY I Attending Provider Attestation/Addendum I have personally seen and examined the patient separately on the above date of service and discussed the plan of care with the resident. I reviewed the resident Dr. Fernandez consultation note and agree with the resident findings and plan in the note above and have also edited the documentation to reflect my findings and plan. A 84-year-old female with a past medical history of recent new diagnosis of congestive heart failure on diuretics [address] Franklin, type 2 diabetes mellitus, essential hypertension, hypothyroidism glaucoma, obesity Presented to the emergency department for severe shortness of breath and hypoxia. Patient apparently tried to reach her primary agricultural services director Dr. Mahan but was only able to get voicemail and hence came to the emergency department. In the emergency department patient was saturating only at 75% on 6 L nasal cannula initially and also on nonrebreather. Patient was tachypneic at 30-40 times per minute. Initial EKG there was a question of possible STEMI in the emergency department staff did call the [facility] on-call agricultural services director who indicated it was an old infarct and declined the transfer. I was contacted immediately about the patient and reviewed the EKG and showed normal sinus rhythm with nonspecific interventricular conduction delay but there was no clearance evidence of any kind of STEMI or acute coronary syndrome. Initial chest x-ray and did not show any significant vascular congestion nor any sign of significant consolidation or pneumonia.Upon further discussion patient apparently was still severely hypoxic with saturation which is 85 to 82% and recommended to get a stat CT for the patient to rule out any kind of pulmonary embolism. Also recommended to give aspirin 325 mg x 1 and start heparin drip with bolus even prior to the CT as it would be helpful to treat any PE or ACS. As expected CT of the chest did confirm bilateral extensive pulmonary emboli almost occluding the left pulmonary artery as well as the right pulmonary artery along with a saddle embolus in the main PA indicating submassive to massive embolism. Patient was placed on high flow oxygen at 40 L with 100% oxygen but her saturation remained in the low 80s. Every time patient was trying to communicate saturations decreased to 70%, work of breathing was increased with significant tachypnea of 30-40/min blood pressure was stable with systolic around 110/60 mmHg to 130/70 mmHg. Patient was still awake alert oriented x 3. Initial plan was to take the patient for mechanical pulmonary thrombectomy on Tuesday morning.but is her clinical condition appeared to be deteriorating, I discussed with data report analyst on-call Dr. Lundberg who kindly came down to see the patient in the emergency department. Decision was made to do TNK IV 50 mg x 1 given her tenuous respiratory status. #Acute saddle pulmonary embolism- Acute bilateral pulmonary artery Embolism #Acute congestive heart failure-recent diagnosis in May 2025 #NSTEMI Type 2-elevated troponins #HTN #DM #Hypothyroidism #Obesity #Will need to rule out obstructive sleep apnea Patient had multiple questions and wanted us to talk to her family members which we did over the phone and answered all questions in detail. All contraindications for TNK were ruled out and patient was given 1 dose of 50 mg IV tenecteplase without any major complications. Patient recommended to continue with IV heparin and continue to check PTT every 6 hours. Patient already being admitted to the ICU for close monitoring overnight and continue with high flow oxygen via nasal cannula at 40 L with 100% FiO2 for now and continue to taper up to oxygen slowly based on her response. If the patient breathing does not improve with the TNK and if clinical response is not achieved then will continue the plan initially of doing bilateral mechanical thrombectomy with penumbra device on 06/09/2025 No need of trending of any further troponins. Echocardiogram ordered to evaluate further RV strain along with evaluation of the RV function, LV function as well as the diastolic function and any regional wall motion abnormalities. Patient diagnosed with recent CHF-unclear if systolic versus diastolic right heart failure or combined heart failure Echo already ordered as noted above. Patient was recently started on Lasix at home by Dr. Franklin and her leg swelling has improved tremendously since then. Her hypokalemia is mostly secondary to the diuresis and will replace it accordingly. Will hold off on the IV Lasix at the present point of time and will restart it tomorrow based on the blood pressure and hemodynamic instability. Keep potassium greater than 4 and magnesium greater than 2+ all the time. Check TSH A1c and lipid profile for further cardiac risk stratification. There is a high probability of sudden, clinically significant or life threatening deterioration in the patient condition which required the highest level of physician preparedness to intervene urgently. I have personally spent 95 minutes of critical care time, exclusive of time spent on any procedures, in evaluation and management of this critically ill patient. Freddie Pradhan M.D. Interventional Cardiology
--- NOTE | 2025-06-08 21:47 | PD.RESHP ---
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 She reports that her instructional support technician, Dr. Franklin, told her she had a heart attack one week ago, during which she was diagnosed with CHF. Since then, she has been on 2 L of home oxygen via nasal cannula, which she started this past Tuesday. However, today her oxygen requirements have increased to 3 L due to worsening shortness of breath. She presents to the Emergency Department for worsening shortness of breath, generalized weakness, and fatigue. The visit with Dr. Franklin was to establish care in [place], as her previous instructional support technician was in [place]. Following her CHF diagnosis, she was started on spironolactone 25 mg and Lasix 40 mg daily. She notes that her bilateral leg swelling has decreased since her Lasix dose was increased from 20 mg to 40 mg. She also takes prednisone 5 mg daily for history of giant cell arteritis. She denies chest pain, nausea, vomiting, hemoptysis, headaches, or blurry vision but does endorse chronic leg pain in both legs due to persistent edema. ED course: Upon arrival to the ED, the patient's vitals were notable for a heart rate of 107 bpm, respiratory rate of 24, blood pressure of 110/69, and an oxygen saturation of 75% on 6 L of oxygen via nasal cannula. She was quickly transitioned to high-flow oxygen at 40 L, but her saturation remained in the mid-80s. The patient expressed her DNR/DNI status. A CT Pulmonary Angiogram was performed, which revealed large, multiple bilateral pulmonary artery emboli, including a saddle embolus. Her EKG showed sinus tachycardia. Labs were significant for a respiratory alkalosis with a pH of 7.51 and pCO2 of 33, a low potassium level of 2.8, and an elevated troponin level that increased from 0.307 to 0.720. Her BNP was 323, and her creatinine was 1.0. Past medical history: as stated above, no personal history of cancer Past surgical history: Prior appendectomy, cholecystectomy, hysterectomy, bilateral cataract surgery in 2023 Social history: No smoking history, no alcohol use, no drug use. Patient lives by herself since her few years ago and has been independent with activities of daily living Medications: Pending medication reconciliation Allergies: Codeine, erythromycin, penicillins, benzonatate, ciprofloxacin, levofloxacin, latex Family history: Patient admitted to ICU for close monitoring of hemodynamic status as has very high risk of clinical deterioration at any time due to saddle pulmonary embolus. Review of Systems Review of Systems Narrative Review of Systems: All systems reviewed negative unless stated otherwise above. Exam Vital Signs Temp Pulse Resp BP Pulse Ox O2 Del Method O2 Flow Rate 97.5 F 96 22 H 111/85 H 85 L Oxy Mask 40 06/08/25 15:52 06/08/25 19:24 06/08/25 19:24 06/08/25 16:01 06/08/25 17:35 06/08/25 15:52 06/08/25 19:24 FiO2 100 06/08/25 19:24 Narrative Exam General: Alert and oriented x 3, in mild distress distress, short of breath at end of sentences conversing appropriately, on high flow oxygen at 40 L HEENT: Normocephalic, atraumatic, PERRLA, EOMI, anicteric. Cardiovascular: Regular rate and rhythm, no murmurs appreciated on auscultation. Respiratory: Lungs are clear to auscultation, respirations labored with accessory muscle use, no crackles, no wheezing. Gastrointestinal: Tympanic, soft, nontender, no guarding or rebound tenderness, no organomegaly. Extremities: 3+ bilateral pitting lower extremity edema up to knees, no cyanosis, no clubbing. 2+ radial pulse bilaterally, 2+ posterior tibial pulse bilaterally. Skin: Warm, dry, intact, no obvious rash. Neuro: No focal deficits observed. Cranial nerves II to XII intact, intact moving all extremities. Upper and lower limb strength exam normal, no overt cerebellar signs/incoordination. Psychiatric: Cooperative, appropriate affect. Results: Labs 06/09/25 05:00 06/09/25 05:00 Labs: Short CBC 06/08/25 Range/Units 15:45 WBC 9.2 (3.6-11.0) Thou/mm3 Hgb 15.2 (12.0-16.0) g/dL Hct 44.2 (36.0-46.0) % Plt Count 207 (140-440) Thou/mm3 BMP 06/08/25 15:45 Sodium 137 Potassium 2.8 L Chloride 96 L Carbon Dioxide 25.8 BUN 21 Creatinine 1.0 Glucose 144 H Calcium 9.7 Cardiac Enzymes 06/08/25 06/08/25 Range/Units 15:45 18:13 Troponin I 0.307 H* 0.720 H* D (0.0-0.045) ng/mL Liver Function 06/08/25 Range/Units 15:45 Total Bilirubin 0.8 (0.3-1.2) mg/dL AST 40 H (0-34) U/L ALT 17 (10-49) U/L Alkaline Phosphatase 83 (46-116) U/L Albumin 4.1 (3.4-4.8) gm/dL Urine 06/08/25 Range/Units 16:37 Urine Color Yellow (Lt Yel-Yel) Urine Clarity Turbid A (Clear/Hazy) Urine pH 5.5 (5.0-7.0) Ur Specific [place] 1.019 (1.001-1.035) Urine Protein Trace (Neg - Trace) Urine Glucose (UA) Negative (Negative) ABG Interpretation ABG results: 06/08/25 15:53 ABG pH 7.51 H ABG pCO2 33 ABG pO2 44 L* ABG HCO3 26 ABG O2 Saturation 82 L ABG Base Excess 4 H Quality Measures Quality Measures none Advance care planning discussed with:: patient Medications Home Medications and Allergies Home Medications ?Medication ?Instructions ?Recorded ?Confirmed ?Type enalapril maleate 20 mg tablet 20 mg PO BID 11/20/18 06/08/25 History furosemide 20 mg tablet (Lasix) 40 mg PO QDAY 11/20/18 06/08/25 History levothyroxine 75 mcg capsule 75 mcg PO QDAY 11/20/18 06/08/25 History metoprolol succinate 100 mg 100 mg PO BID 11/20/18 06/08/25 History tablet,extended release 24 hr potassium chloride 20 mEq 20 meq PO QDAY 11/20/18 06/08/25 History tablet,extended release Held on 06/08/25. Instructions: stopped taking lasix prednisone 5 mg tablet 5 mg PO QDAY 11/20/18 06/08/25 History Allergies Allergy/AdvReac Type Severity Reaction Status Date / Time codeine Allergy Severe SEVERE Verified 06/08/25 15:54 DIFF. BREATHING erythromycin base Allergy Intermediate RASH,ITCHIN Verified 06/08/25 15:54 G Penicillins Allergy Intermediate RASH,SWELLI Verified 06/08/25 15:54 NG benzonatate (From Tessalon Allergy Verified 06/08/25 15:54 Perles) ciprofloxacin (From Cipro) Allergy Verified 06/08/25 15:54 levofloxacin AdvReac Severe STIFF Verified 06/08/25 15:54 JOINTS,PARALYZED latex AdvReac Intermediate RASH Verified 06/08/25 15:54 Visit Medications Acetaminophen (Acetaminophen 325 Mg Tablet) 650 mg PO Q4HR PRN PRN Reason: Pain Scale 1-3 or Fever Stop: 07/08/25 18:12 Heparin Sodium/Dextrose (Heparin In D5w Ivpb) 25,000 unit in 250 mls @ 17.799 mls/hr IV .Q14H3M KARINA; Protocol Stop: 06/22/25 18:59 Last Admin: 06/08/25 20:26 Dose: Not Given Potassium Chloride (Kcl Ivpb) 10 meq in 100 mls @ 100 mls/hr IV Q1H [facility]ARINA Stop: 06/09/25 00:31 Pantoprazole Sodium (Pantoprazole Inj 40 Mg Vial) 40 mg IVP QDAY [facility] Stop: 07/09/25 08:59 Discontinued Medications Aspirin (Aspirin 325 Mg Tablet) 325 mg PO X1 ONE Stop: 06/08/25 16:59 Last Admin: 06/08/25 18:25 Dose: Not Given Aspirin (Aspirin 81 Mg Chew) 324 mg PO X1 ONE Stop: 06/08/25 18:27 Last Admin: 06/08/25 19:47 Dose: Not Given Heparin Sodium (Porcine) (Heparin Sod Inj 5000 Unit/Ml Vial) 4,000 unit IV X1 ONE; Protocol Stop: 06/08/25 16:59 Last Admin: 06/08/25 18:29 Dose: Not Given Heparin Sodium (Porcine) (Heparin Sod Inj 5000 Unit/Ml Vial) 7,900 unit 80 unit/kg (7900 unit) IV X1 ONE; Protocol Stop: 06/08/25 19:01 Last Admin: 06/08/25 20:26 Dose: Not Given Heparin Sodium/Dextrose (Heparin In D5w Ivpb) 25,000 unit in 250 mls @ 10 mls/hr IV .Q24H [facility]; Protocol Stop: 06/22/25 16:59 Last Admin: 06/08/25 18:29 Dose: Not Given Potassium Chloride (Kcl Ivpb) 10 meq in 100 mls @ 100 mls/hr IV Q1H [facility]ARINA Stop: 06/08/25 19:15 Last Admin: 06/08/25 20:04 Dose: 75 mls/hr Heparin Sodium/Dextrose (Heparin In D5w Ivpb) 25,000 unit in 250 mls @ 17.799 mls/hr IV .Q14H3M [facility]; Protocol Stop: 06/22/25 17:44 Last Admin: 06/08/25 19:32 Dose: Not Given Sodium Chloride (Ns) 250 mls @ 100 mls/hr IV .Q2H30M ONE Stop: 06/08/25 20:47 Last Admin: 06/08/25 18:37 Dose: 100 mls/hr Pantoprazole Sodium (Pantoprazole 20 Mg Tablet) 20 mg PO X1 ONE Stop: 06/08/25 19:30 Last Admin: 06/08/25 19:54 Dose: Not Given Potassium Chloride (Potassium Chloride 20 Meq Tabcr) 40 meq PO X1 ONE Stop: 06/08/25 17:17 Last Admin: 06/08/25 18:24 Dose: Not Given Tenecteplase (Tenecteplase Inj 50 Mg Vial) 50 mg IV X1 ONE Stop: 06/08/25 20:28 Assessment & Plan Plan Summary: 84-year-old female with a past medical history of essential hypertension, glaucoma, hypothyroidism, 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 Patient admitted to ICU for further management of saddle pulmonary embolus. 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 CVS: #Sinus tachycardia Secondary to pulmonary embolus Rx ? Treat pulmonary embolism #Hx of Congestive heart failure Chronic bilat pitting edema of LE BNP 323 Chest x-ray showed mild to moderate enlargement of the cardiac contour, no pulmonary edema Preliminary echocardiogram study showed non-collapsible IVC, evidence of right ventricular strain, and dilated right ventricle RX: ?Strict ins and out -Cardiac monitoring ?Echocardiogram pending formal cardiology read - Cardiology consulted, Dr. Pradhan, follow recommendations ?Resume patient's heart failure medications when more stable #Troponinemia Likely secondary to demand ischemia No active chest pain EKG showed no ST elevations Troponin up trended to 0.72 Rx ? Check troponin q6h PULM: #Saddle pulmonary embolus High risk PE CT pulmonary angiogram showed large, multiple bilateral pulmonary artery emboli, including a saddle embolus. EKG showed sinus tachycardia No personal hx of cancer Patient has chronic bilat pitting edema with assoc leg pain, unclear if had DVTs Patient expressed DNR/DNI status Rx: ?Tenecteplase 50 mg IV x 1 given, after explaining the risks and benefit to the patient and making a shared decision making ?Heparin drip on hold, start if the APTT is < 2/3 of the upper limit of normal ?Thrombectomy, if still indicated, to be performed on Tuesday by Dr. Pradhan ?Repeat echocardiogram after 48 hours post tenecteplase, order in place #Acute hypoxic respiratory failure #Respiratory alkalosis In the setting of pulmonary embolism Currently on 40 L of high flow oxygen however saturations are around mid 80s TX: - If hypoxemia worsens on high flow oxygen, start on noninvasive ventilation with BiPAP ?Patient does not want to be intubated GI: No active issues. NEPHRO: #Hypokalemia Rx: ? Replete as necessary ENDO: #Hypothyroidism Rx: ? Restart levothyroxine 75 mcg daily HEME: No active issues. MSK: #Hx of Osteoarthritis Patient mentions she takes 5 mg of prednisolone for osteoarthritis RX: ? Restart patient's home prednisolone when more clinically stable ID: No active issues. Health Maintenance: Diet: N.p.o. GI prophylaxis: Protonix DVT prophylaxis: Heparin (ON HOLD) Antibiotics: None indicated at this time CODE STATUS: DNR/DNI Disposition: ICU Case discussed with my attending Dr. Lopez, and senior resident, Dr. Nba Landrum MD PGY-1 Attending Provider Attestation/Addendum Patient seen and examined with the above resident, Nikos Landrum MD. I agree with the findings, assessment, and plan of care as documented except for any differences below. Patient presents with submassive PE with elevated troponin and BNP however severe hypoxia despite high flow/high humidity nasal cannula at 40 L/min / 100% FiO2. Patient remains tachypneic multiple hours after hospital evaluation. Echocardiogram shows RV dilation though CT scan did not show any RV just strain pattern. Gerard discussion was had in the emergency department with the patient and her son/[id number] who are at telephone. We at length discussed risk versus benefit including supportive data from literature about the role of TNK and submassive PE especially with saddle embolism as seen on her CTA. She was agreeable. Reviewing absolute/ relative contraindications-only risk factors advanced age. At this point, patient was amenable to TNK administration. Will plan to initiate heparin drip once APTT is less than 2 times upper limit of normal. Will need further evaluation for hypercoagulable state versus malignancy. No clear provocative event to explain development of such a large clot burden. Lower extremity Dopplers will be done as well. Patient will remain in the ICU for close monitoring overnight. Cardiology is aware and after discussion agreeable to plan for thrombolytic therapy with follow-up for potential catheter directed therapies early next week. Patient will remain n.p.o. overnight. We did confirm her desire to remain DNR which is appropriate given her advanced age. Will hold home medications overnight and reassess in the next 24 to 48 hours for resumption. Total critical care time: I personally spent 80 minutes for review of physiologic parameters, directing plan of care, coordination of care with other subspecialist, counseling patient and family at bedside. This is exclusive of time spent teaching of staff or performing separate billable procedures. Patient remains at significant risk for further morbidity and mortality warranting close monitoring and care only available in the ICU. Critical care services required for submassive pulmonary embolism, acute hypoxic respiratory failure, and hypokalemia.
[2025-06-08] MEDS: TENECTEPLASE INJ 50 MG VIAL IV (21:52)
--- NOTE | 2025-06-08 21:55 | PC.RT ---
pt transfered without complications on 40L 100% tranport high flow pt tolerated well spo2 in the mid 80s 85-86% refere to nurse notes for times.
[2025-06-08] MEDS: POTASSIUM CHL 10 mEq IVPB 10 MEQ/100 ML BAG 50 MEQ IV ×2 (22:07→23:55)
[2025-06-08 23:26] LABS: Base Excess, Venous 3 (-3-3); O2 Saturation, Venous 53 % (96-97); PCO2, Venous 37 mmHg (36-56); PO2, Venous 30 mmHg (15-58); pH, Venous 7.46 (7.33-7.66)
[2025-06-09] VITALS (30 sets, daily range): BP systolic 104–149; BP diastolic 63–88; PULSE 76–101; RESP 12–25; TEMP 36.2–36.6; O2SAT 90–100; BMI 36.8
[2025-06-09] MEDS: POTASSIUM CHL 10 mEq IVPB 10 MEQ/100 ML BAG 50 MEQ IV ×2 (01:58→04:00)
[2025-06-09 06:27] LABS: Basophils # (Auto) 0.1 Thou/mm3 (0.0-0.2); Basophils % (Auto) 1 % (0-2.5); Eosinophils # (Auto) 0.1 Thou/mm3 (0.0-0.5); Eosinophils % (Auto) 1 % (0-10); Hematocrit 42.3 % (36.0-46.0); Hemoglobin 14.4 g/dL (12.0-16.0); Immature Granulocytes Auto 0.03 Thou/mm3 (0.00-0.00); Lymphocytes # (Auto) 1.4 Thou/mm3 (1.0-4.8); Lymphocytes % (Auto) 15 % (10-50); Mean Corpuscular HGB Conc 34.0 g/dl (31.0-37.0); Mean Corpuscular Hemoglobin 33.5 pg (25.0-35.0); Mean Corpuscular Volume 98 fL (80-100); Monocytes # (Auto) 1.0 Thou/mm3 (0.0-0.8); Monocytes % (Auto) 10 % (0-12); Neutrophils # (Auto) 6.8 Thou/mm3 (1.8-7.7); Neutrophils % (Auto) 73 % (37-80); Nucleated Red Blood Cell # 0.00 Thou/mm3 (0.00-0.00); Nucleated Red Blood Cell % 0 /100 WBC (0); Platelet Count 172 Thou/mm3 (140-440); RDW Standard Deviation 47.2 fL (36.4-46.3); Red Blood Count 4.30 Miln/mm3 (4.00-5.20); White Blood Count 9.3 Thou/mm3 (3.6-11.0)
[2025-06-09 07:06] LABS: Alanine Aminotransferase 10 U/L (10-49); Albumin, Serum 3.3 gm/dL (3.4-4.8); Albumin/Globulin Ratio 1.5 (1.2-2.2); Alkaline Phosphatase 68 U/L (46-116); Anion Gap 15 (7-16); Aspartate Amino Transferase 26 U/L (0-34); BUN/Creatinine Ratio 29 Ratio (12-20); Bilirubin,Total 0.9 mg/dL (0.3-1.2); Blood Urea Nitrogen 20 mg/dL (9-23); Calcium 9.1 mg/dL (8.3-10.6); Calcium (Corrected) 9.7 mg/dL (8.5-10.1); Carbon Dioxide 23.1 mMol/L (20.0-31.0); Chloride 101 mMol/L (98-107); Creatinine (Component) 0.7 mg/dL (0.6-1.3); Estimated Creatinine Clearance 67.8 mL/min (>60); Globulin 2.2 gm/dL (2.3-3.5); Glucose 102 mg/dL (74-106); Magnesium 2.1 mg/dL (1.6-2.6); Osmolality,Calculated 280 (275-295); Phosphorous 3.7 mg/dL (2.4-5.1); Potassium 3.8 mMol/L (3.4-5.1); Sodium 139 mMol/L (136-145); Total Protein 5.5 gm/dL (5.7-8.2); eGFR > 60 See Note
[2025-06-09 07:14] LABS: Troponin I 1.251 ng/mL (0.0-0.045)
[2025-06-09] MEDS: LEVOTHYROXINE SODIUM 25 MCG TABLET 75 MCG PO (08:27)
--- NOTE | 2025-06-09 09:15 | ESPR_ITS ---
Documentation for date of: 06/09/25 Subjective Subjective Interval history: Interval History: 06/09/25 No acute overnight events. Patient is feeling a lot better and feeling less short of breath. Oxygen requirements have gone down considerably. Patient safe to resume diet, eating and drinking ok. Heaprin drip started. Patient is medically stable to be transferred to the medical floor today. Exam Vital Signs Temp Pulse Resp BP Pulse Ox O2 Del Method O2 Flow Rate 97.5 F 89 15 122/74 94 L High Flow Nasal Cannula 8 06/09/25 08:00 06/09/25 08:23 06/09/25 08:23 06/09/25 08:00 06/09/25 08:23 06/09/25 08:00 06/09/25 08:00 FiO2 06/09/25 08:00 Narrative Exam General: Alert and oriented x 3, no distress, very minimal shortness of breath at end of sentences, conversing appropriately, weaned off O2 and maintaing sats >95% HEENT: Normocephalic, atraumatic, PERRLA, EOMI, anicteric. Cardiovascular: Regular rate and rhythm, no murmurs appreciated on auscultation. Respiratory: Lungs are clear to auscultation, no WOB, no crackles, no wheezing. Gastrointestinal: Tympanic, soft, nontender, no guarding or rebound tenderness, no organomegaly. Extremities: 3+ bilateral pitting lower extremity edema up to knees, no cyanosis, no clubbing. 2+ radial pulse bilaterally, 2+ posterior tibial pulse bilaterally. Skin: Warm, dry, intact, no obvious rash. Neuro: No focal deficits observed. Cranial nerves II to XII intact, intact moving all extremities. Upper and lower limb strength exam normal, no overt cerebellar signs/incoordination. Psychiatric: Cooperative, appropriate affect. Objective Labs 06/09/25 05:00 06/09/25 05:00 Labs: Laboratory Results - last 24 hr 06/08/25 06/08/25 06/08/25 15:45 15:53 16:37 WBC 9.2 RBC 4.48 Hgb 15.2 Hct 44.2 MCV 99 MCH 33.9 MCHC 34.4 RDW Std Deviation 47.6 H Plt Count 207 Neut % (Auto) 73 Lymph % (Auto) 16 [place] % (Auto) 10 Eos % (Auto) 0 Baso % (Auto) 0 Neut # (Auto) 6.7 Lymph # (Auto) 1.5 [place] # (Auto) 0.9 H Eos # (Auto) 0.0 Baso # (Auto) 0.0 Immature Gran # (Auto) 0.02 H Absolute Nucleated RBC 0.00 Immature Gran % 0 Nucleated RBC % 0 PT 12.6 H INR 1.2 APTT Puncture Site Right Radial ABG pH 7.51 H ABG pCO2 33 ABG pO2 44 L* ABG HCO3 26 ABG O2 Saturation 82 L ABG Base Excess 4 H VBG pH VBG pCO2 VBG pO2 VBG O2 Sat (Joselo) VBG Base Excess Carboxyhemoglobin 3.7 H FiO2 15 Sodium 137 Potassium 2.8 L Chloride 96 L Carbon Dioxide 25.8 Anion Gap 15 BUN 21 Creatinine 1.0 Estim Creat Clear Calc 47.0 L eGFR 55 L BUN/Creatinine Ratio 21 H Glucose 144 H Calculated Osmolality 279 Lactic Acid Calcium 9.7 Corrected Calcium 9.7 Phosphorus Magnesium 2.1 Total Bilirubin 0.8 AST 40 H ALT 17 Alkaline Phosphatase 83 Troponin I 0.307 H* B-Natriuretic Peptide 323 H Total Protein 6.9 Albumin 4.1 Globulin 2.8 Albumin/Globulin Ratio 1.5 Free T4 1.60 Ur Collection Type Catheter Urine Color Yellow Urine Clarity Turbid A Urine pH 5.5 Ur Specific [place] 1.019 Urine Protein Trace Urine Glucose (UA) Negative Urine Ketones Negative Urine Blood Negative Urine Nitrite Negative Urine Bilirubin Negative Urine Urobilinogen (Auto) 2.0 Ur Leukocyte Esterase Positive Urine RBC 4 H Urine WBC 118 H Ur Squamous Epith Cells 1 Amorphous Crystals Present A Urine Bacteria 3+ A Hyaline Casts 2 H Granular Casts 1 Ur Culture Indicated? Yes Urine Opiates Screen Negative Urine Fentanyl Screen Negative Ur Barbiturates Screen Negative U Amphetamin/Meth Scrn Negative U Benzodiazepines Scrn Negative U Cocaine Metab Screen Negative U Marijuana (THC) Screen Negative 06/08/25 06/08/25 06/08/25 18:13 19:02 23:16 WBC RBC Hgb Hct MCV MCH MCHC RDW Std Deviation Plt Count Neut % (Auto) Lymph % (Auto) [place] % (Auto) Eos % (Auto) Baso % (Auto) Neut # (Auto) Lymph # (Auto) [place] # (Auto) Eos # (Auto) Baso # (Auto) Immature Gran # (Auto) Absolute Nucleated RBC Immature Gran % Nucleated RBC % PT INR APTT 27.1 Puncture Site ABG pH ABG pCO2 ABG pO2 ABG HCO3 ABG O2 Saturation ABG Base Excess VBG pH 7.46 VBG pCO2 37 VBG pO2 30 VBG O2 Sat ([place]) 53 L VBG Base Excess 3 Carboxyhemoglobin FiO2 Sodium Potassium Chloride Carbon Dioxide Anion Gap BUN Creatinine Estim Creat Clear Calc eGFR BUN/Creatinine Ratio Glucose Calculated Osmolality Lactic Acid 2.0 Calcium Corrected Calcium Phosphorus Magnesium Total Bilirubin AST ALT Alkaline Phosphatase Troponin I 0.720 H* D B-Natriuretic Peptide Total Protein Albumin Globulin Albumin/Globulin Ratio Free T4 Ur Collection Type Urine Color Urine Clarity Urine pH Ur Specific [place] Urine Protein Urine Glucose (UA) Urine Ketones Urine Blood Urine Nitrite Urine Bilirubin Urine Urobilinogen (Auto) Ur Leukocyte Esterase Urine RBC Urine WBC Ur Squamous Epith Cells Amorphous Crystals Urine Bacteria Hyaline Casts Granular Casts Ur Culture Indicated? Urine Opiates Screen Urine Fentanyl Screen Ur Barbiturates Screen U Amphetamin/Meth Scrn U Benzodiazepines Scrn U Cocaine Metab Screen U Marijuana (THC) Screen 06/09/25 05:00 WBC 9.3 RBC 4.30 Hgb 14.4 Hct 42.3 MCV 98 MCH 33.5 MCHC 34.0 RDW Std Deviation 47.2 H Plt Count 172 D Neut % (Auto) 73 Lymph % (Auto) 15 [place] % (Auto) 10 Eos % (Auto) 1 Baso % (Auto) 1 Neut # (Auto) 6.8 Lymph # (Auto) 1.4 [place] # (Auto) 1.0 H Eos # (Auto) 0.1 Baso # (Auto) 0.1 Immature Gran # (Auto) 0.03 H Absolute Nucleated RBC 0.00 Immature Gran % 0 Nucleated RBC % 0 PT INR APTT Puncture Site ABG pH ABG pCO2 ABG pO2 ABG HCO3 ABG O2 Saturation ABG Base Excess VBG pH VBG pCO2 VBG pO2 VBG O2 Sat ([place]) VBG Base Excess Carboxyhemoglobin FiO2 Sodium 139 Potassium 3.8 D Chloride 101 Carbon Dioxide 23.1 Anion Gap 15 BUN 20 Creatinine 0.7 Estim Creat Clear Calc 67.8 eGFR > 60 BUN/Creatinine Ratio 29 H Glucose 102 Calculated Osmolality 280 Lactic Acid Calcium 9.1 Corrected Calcium 9.7 Phosphorus 3.7 Magnesium 2.1 Total Bilirubin 0.9 AST 26 ALT 10 Alkaline Phosphatase 68 Troponin I 1.251 H* D B-Natriuretic Peptide Total Protein 5.5 L Albumin 3.3 L D Globulin 2.2 L Albumin/Globulin Ratio 1.5 Free T4 Ur Collection Type Urine Color Urine Clarity Urine pH Ur Specific [place] Urine Protein Urine Glucose (UA) Urine Ketones Urine Blood Urine Nitrite Urine Bilirubin Urine Urobilinogen (Auto) Ur Leukocyte Esterase Urine RBC Urine WBC Ur Squamous Epith Cells Amorphous Crystals Urine Bacteria Hyaline Casts Granular Casts Ur Culture Indicated? Urine Opiates Screen Urine Fentanyl Screen Ur Barbiturates Screen U Amphetamin/Meth Scrn U Benzodiazepines Scrn U Cocaine Metab Screen U Marijuana (THC) Screen ABG Interpretation ABG results: 06/08/25 06/08/25 15:53 23:16 ABG pH 7.51 H ABG pCO2 33 ABG pO2 44 L* ABG HCO3 26 ABG O2 Saturation 82 L ABG Base Excess 4 H VBG pH 7.46 VBG pCO2 37 VBG pO2 30 VBG Base Excess 3 Quality Measures Quality Measures none Advance care planning discussed with:: patient Assessment & Plan Assessment Current Active Medications: Generic Name Dose Route Start Last Admin Trade Name Freq PRN Reason Stop Dose Admin Acetaminophen 650 mg 06/08/25 18:13 Acetaminophen 325 Mg Tablet PO 07/08/25 18:12 Q4HR PRN Pain Scale 1-3 or Fever Heparin Sodium/Dextrose 25,000 unit in 250 mls @ 17.799 mls/hr 06/08/25 19:00 06/08/25 20:26 Heparin In D5w Ivpb IV 06/22/25 18:59 Not Given .[id number] KARINA Protocol 18 UNITS/KG/HR Levothyroxine Sodium 75 mcg 06/09/25 07:05 06/09/25 08:27 Levothyroxine Sodium 25 Mcg Tablet PO 07/09/25 07:04 75 mcg ACBR KARINA Administration Pantoprazole Sodium 40 mg 06/09/25 09:00 06/09/25 08:29 Pantoprazole Inj 40 Mg Vial IVP 07/09/25 08:59 40 mg QDAY KARINA Administration Plan Summary: 84-year-old female with a past medical history of essential hypertension, glaucoma, hypothyroidism, 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 Patient admitted to ICU for further management of saddle pulmonary embolus. [employer]: No active issues. CVS: #Hx of Congestive heart failure Chronic bilat pitting edema of LE BNP 323 Chest x-ray showed mild to moderate enlargement of the cardiac contour, no pulmonary edema Preliminary echocardiogram study showed non-collapsible IVC, evidence of right ventricular strain, and dilated right ventricle RX: ?Strict ins and out -Cardiac monitoring ?Echocardiogram pending formal cardiology read - Cardiology consulted, Dr. Pradhan, follow recommendations ?Resume patient's heart failure medications when more stable - Lasix 20mg IV qday #Troponinemia Likely secondary to RV strain and demand ischemia No active chest pain EKG showed no ST elevations Troponin up trended to 1.251 RX - No need to trend troponins PULM: #Saddle pulmonary embolus High risk PE CT pulmonary angiogram showed large, multiple bilateral pulmonary artery emboli, including a saddle embolus. EKG showed sinus tachycardia No personal hx of cancer Patient has chronic bilat pitting edema with assoc leg pain, unclear if had DVTs Patient expressed DNR/DNI status Rx: ?Tenecteplase 50 mg IV x 1 given, after explaining the risks and benefit to the patient and making a shared decision making ?Heparin drip started ?Thrombectomy, if still indicated, to be performed on Tuesday by Dr. Pradhan ?Repeat echocardiogram after 48 hours post tenecteplase, order in place #Acute hypoxic respiratory failure #Respiratory alkalosis In the setting of pulmonary embolism Currently on 40 L of high flow oxygen however saturations are around mid 80s TX: - If hypoxemia worsens on high flow oxygen, start on noninvasive ventilation with BiPAP ?Patient does not want to be intubated GI: No active issues. NEPHRO: No active issues. ENDO: #Hx of Hypothyroidism Rx: ? Restarted levothyroxine 75 mcg daily HEME: No active issues. 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 RX: ? Restart patient's home prednisone ID: No active issues. Health Maintenance: Diet: regular diet GI prophylaxis: Protonix Antibiotics: None indicated at this time CODE STATUS: DNR/DNI Disposition: downgrade to medical floor today Case discussed with my attending Dr. John Landrum MD PGY-1 Attending Provider Attestation/Addendum Patient seen and examined with above resident, Nikos Landrum MD. I agree with the findings, assessment, and plan of care as documented except for any differences below. Patient significantly improved this morning with ability to wean off of supplemental oxygen. Oxygen saturation remains at rest to the low 90s. Patient with normal blood pressure and no tachycardia. Patient with mild tachypnea notably when she does speak. Patient will be continued on bedrest. Will remove Pierre catheter. Once patient's APTT is below 2 times upper limit of normal, will resume heparin this morning. Will need to be transition to oral anticoagulant. Likely precipitated due to lower extremity edema from chronic venous stasis and immobility. However would warrant further evaluation for malignancy and hypercoagulable state. Patient to be resumed on her home dose of prednisone and will gradually reintroduce other home medication. Patient stable for transfer to the medicine chan. Cardiology is following. Will plan for limited echocardiogram tomorrow to assess RV function to determine necessity for proceeding with catheterization for possible thrombectomy of residual clot burden. Patient's family will be visiting in the coming days. Total critical care time: I personally spent 40 minutes for review of physiologic parameters, directing plan of care throughout today, coordination of care with other subspecialties, and counseling patient extensively at bedside. This is exclusive of time spent teaching of staff or performing separate billable procedures. Patient remains at risk of further morbidity and mortality warranting close monitoring only available in the ICU. Critical care services for submassive pulmonary embolism withot cor pulmonale and acute hypoxic respiratory failure.
--- NOTE | 2025-06-09 09:58 | ESPR_ITS ---
Documentation for date of: 06/09/25 Subjective Subjective Interval history: Patient is currently evaluated bedside, currently in ICU, saturating 94% on room air. Patient is sitting upright in bed, reported improvement in symptoms. Patient was diagnosed with high risk pulm embolism, saddle embolism bilateral pulmonary arteries, IV thrombolysis was given, s/p TKA 2152 hrs on 06/08/2025. IV heparin was recommended to be started after thrombolysis last night, ICU team ordering PTT and will start heparin drip. Will order a repeat echocardiogram for tomorrow to evaluate for RV strain. Noted bilateral lower extreme edema and erythema, extended up to the mid arana. Patient did report that her swelling has improved since hospitalization, also reported that she is tender all over her body due to PMR and is on medications for pain. Exam Vital Signs Temp Pulse Resp BP Pulse Ox O2 Del Method O2 Flow Rate 97.5 F 79 25 H 104/66 94 L Room Air 8 06/09/25 08:00 06/09/25 09:00 06/09/25 09:00 06/09/25 09:00 06/09/25 09:00 06/09/25 09:00 06/09/25 08:00 FiO2 25 06/09/25 08:00 Narrative Exam General: AOx3, cooperative, currently saturating well on room air. Skin: Intact, no cyanosis noted. Noted bruising and dried up blood around IV site. Bilateral lower extremity edema and erythema, tender to touch. HEENT: Atraumatic/normocephalic, RICK, neck supple Heart: RRR, S1 and S2 without clicks or murmurs Lungs: Clear on auscultation bilaterally, no difficulty breathing at the moment. Abdomen: Soft, nontender. Bowel sounds present . Vascular: Peripheral pulses palpable Neuro: No focal neurological deficits noted. Objective Labs 06/10/25 02:30 06/10/25 02:30 Labs: Laboratory Results - last 24 hr 06/08/25 06/08/25 06/08/25 15:45 15:53 16:37 WBC 9.2 RBC 4.48 Hgb 15.2 Hct 44.2 MCV 99 MCH 33.9 MCHC 34.4 RDW Std Deviation 47.6 H Plt Count 207 Neut % (Auto) 73 Lymph % (Auto) 16 Ellis % (Auto) 10 Eos % (Auto) 0 Baso % (Auto) 0 Neut # (Auto) 6.7 Lymph # (Auto) 1.5 Ellis # (Auto) 0.9 H Eos # (Auto) 0.0 Baso # (Auto) 0.0 Immature Gran # (Auto) 0.02 H Absolute Nucleated RBC 0.00 Immature Gran % 0 Nucleated RBC % 0 PT 12.6 H INR 1.2 APTT Puncture Site Right Radial ABG pH 7.51 H ABG pCO2 33 ABG pO2 44 L* ABG HCO3 26 ABG O2 Saturation 82 L ABG Base Excess 4 H VBG pH VBG pCO2 VBG pO2 VBG O2 Sat (Joselo) VBG Base Excess Carboxyhemoglobin 3.7 H FiO2 15 Sodium 137 Potassium 2.8 L Chloride 96 L Carbon Dioxide 25.8 Anion Gap 15 BUN 21 Creatinine 1.0 Estim Creat Clear Calc 47.0 L eGFR 55 L BUN/Creatinine Ratio 21 H Glucose 144 H Calculated Osmolality 279 Lactic Acid Calcium 9.7 Corrected Calcium 9.7 Phosphorus Magnesium 2.1 Total Bilirubin 0.8 AST 40 H ALT 17 Alkaline Phosphatase 83 Troponin I 0.307 H* B-Natriuretic Peptide 323 H Total Protein 6.9 Albumin 4.1 Globulin 2.8 Albumin/Globulin Ratio 1.5 Free T4 1.60 Ur Collection Type Catheter Urine Color Yellow Urine Clarity Turbid A Urine pH 5.5 Ur Specific [place] 1.019 Urine Protein Trace Urine Glucose (UA) Negative Urine Ketones Negative Urine Blood Negative Urine Nitrite Negative Urine Bilirubin Negative Urine Urobilinogen (Auto) 2.0 Ur Leukocyte Esterase Positive Urine RBC 4 H Urine WBC 118 H Ur Squamous Epith Cells 1 Amorphous Crystals Present A Urine Bacteria 3+ A Hyaline Casts 2 H Granular Casts 1 Ur Culture Indicated? Yes Urine Opiates Screen Negative Urine Fentanyl Screen Negative Ur Barbiturates Screen Negative U Amphetamin/Meth Scrn Negative U Benzodiazepines Scrn Negative U Cocaine Metab Screen Negative U Marijuana (THC) Screen Negative 06/08/25 06/08/25 06/08/25 18:13 19:02 23:16 WBC RBC Hgb Hct MCV MCH MCHC RDW Std Deviation Plt Count Neut % (Auto) Lymph % (Auto) Ellis % (Auto) Eos % (Auto) Baso % (Auto) Neut # (Auto) Lymph # (Auto) Ellis # (Auto) Eos # (Auto) Baso # (Auto) Immature Gran # (Auto) Absolute Nucleated RBC Immature Gran % Nucleated RBC % PT INR APTT 27.1 Puncture Site ABG pH ABG pCO2 ABG pO2 ABG HCO3 ABG O2 Saturation ABG Base Excess VBG pH 7.46 VBG pCO2 37 VBG pO2 30 VBG O2 Sat (Joselo) 53 L VBG Base Excess 3 Carboxyhemoglobin FiO2 Sodium Potassium Chloride Carbon Dioxide Anion Gap BUN Creatinine Estim Creat Clear Calc eGFR BUN/Creatinine Ratio Glucose Calculated Osmolality Lactic Acid 2.0 Calcium Corrected Calcium Phosphorus Magnesium Total Bilirubin AST ALT Alkaline Phosphatase Troponin I 0.720 H* D B-Natriuretic Peptide Total Protein Albumin Globulin Albumin/Globulin Ratio Free T4 Ur Collection Type Urine Color Urine Clarity Urine pH Ur Specific [place] Urine Protein Urine Glucose (UA) Urine Ketones Urine Blood Urine Nitrite Urine Bilirubin Urine Urobilinogen (Auto) Ur Leukocyte Esterase Urine RBC Urine WBC Ur Squamous Epith Cells Amorphous Crystals Urine Bacteria Hyaline Casts Granular Casts Ur Culture Indicated? Urine Opiates Screen Urine Fentanyl Screen Ur Barbiturates Screen U Amphetamin/Meth Scrn U Benzodiazepines Scrn U Cocaine Metab Screen U Marijuana (THC) Screen 06/09/25 05:00 WBC 9.3 RBC 4.30 Hgb 14.4 Hct 42.3 MCV 98 MCH 33.5 MCHC 34.0 RDW Std Deviation 47.2 H Plt Count 172 D Neut % (Auto) 73 Lymph % (Auto) 15 Ellis % (Auto) 10 Eos % (Auto) 1 Baso % (Auto) 1 Neut # (Auto) 6.8 Lymph # (Auto) 1.4 Ellis # (Auto) 1.0 H Eos # (Auto) 0.1 Baso # (Auto) 0.1 Immature Gran # (Auto) 0.03 H Absolute Nucleated RBC 0.00 Immature Gran % 0 Nucleated RBC % 0 PT INR APTT Puncture Site ABG pH ABG pCO2 ABG pO2 ABG HCO3 ABG O2 Saturation ABG Base Excess VBG pH VBG pCO2 VBG pO2 VBG O2 Sat (Joselo) VBG Base Excess Carboxyhemoglobin FiO2 Sodium 139 Potassium 3.8 D Chloride 101 Carbon Dioxide 23.1 Anion Gap 15 BUN 20 Creatinine 0.7 Estim Creat Clear Calc 67.8 eGFR > 60 BUN/Creatinine Ratio 29 H Glucose 102 Calculated Osmolality 280 Lactic Acid Calcium 9.1 Corrected Calcium 9.7 Phosphorus 3.7 Magnesium 2.1 Total Bilirubin 0.9 AST 26 ALT 10 Alkaline Phosphatase 68 Troponin I 1.251 H* D B-Natriuretic Peptide Total Protein 5.5 L Albumin 3.3 L D Globulin 2.2 L Albumin/Globulin Ratio 1.5 Free T4 Ur Collection Type Urine Color Urine Clarity Urine pH Ur Specific [place] Urine Protein Urine Glucose (UA) Urine Ketones Urine Blood Urine Nitrite Urine Bilirubin Urine Urobilinogen (Auto) Ur Leukocyte Esterase Urine RBC Urine WBC Ur Squamous Epith Cells Amorphous Crystals Urine Bacteria Hyaline Casts Granular Casts Ur Culture Indicated? Urine Opiates Screen Urine Fentanyl Screen Ur Barbiturates Screen U Amphetamin/Meth Scrn U Benzodiazepines Scrn U Cocaine Metab Screen U Marijuana (THC) Screen ABG Interpretation ABG results: 06/08/25 06/08/25 15:53 23:16 ABG pH 7.51 H ABG pCO2 33 ABG pO2 44 L* ABG HCO3 26 ABG O2 Saturation 82 L ABG Base Excess 4 H VBG pH 7.46 VBG pCO2 37 VBG pO2 30 VBG Base Excess 3 Quality Measures Quality Measures none Advance care planning discussed with:: patient Assessment & Plan Assessment Current Active Medications: Generic Name Dose Route Start Last Admin Trade Name Freq PRN Reason Stop Dose Admin Acetaminophen 650 mg 06/08/25 18:13 Acetaminophen 325 Mg Tablet PO 07/08/25 18:12 Q4HR PRN Pain Scale 1-3 or Fever Heparin Sodium/Dextrose 25,000 unit in 250 mls @ 17.799 mls/hr 06/08/25 19:00 06/08/25 20:26 Heparin In D5w Ivpb IV 06/22/25 18:59 Not Given .[id number] KARINA Protocol 18 UNITS/KG/HR Levothyroxine Sodium 75 mcg 06/09/25 07:05 06/09/25 08:27 Levothyroxine Sodium 25 Mcg Tablet PO 07/09/25 07:04 75 mcg ACBR KARINA Administration Pantoprazole Sodium 40 mg 06/09/25 09:00 06/09/25 08:29 Pantoprazole Inj 40 Mg Vial IVP 07/09/25 08:59 40 mg QDAY KARINA Administration Plan Avril Blankenship is an 84F with a history of hypertension, diabetes, obstructive sleep apnea, polymyalgia rheumatica, 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 but sudden worsening 2 days prior to presentation. Patient reported that she was referred to firefighter type one Dr. Viviane Franklin following EKG findings by her PCP, who evaluated the patient last week, and told the patient has had a heart attack. Patient reported she did not have any prior chest pressure or severe chest pain, but does have vague symptoms due to her history of PMR and she has pain and tenderness all over her body. 2 days prior to presentation patient reported feeling severely short of breath at rest and on exertion. On arrival in the ED, Patient was saturating 75% on 6 L, was eventually placed on high flow nasal cannula oxygen at 40 L/min 100% FiO2. Heart rate 107/min, respiratory rate 24/min, EKG showed sinus tachycardia heart rate 101, Q waves in inferior and anterior leads, poor R wave progression, CT angiogram was done for persistent hypoxia which was positive for large multiple bilateral pulmonary artery emboli including saddle type emboli in the right and left main pulmonary artery segments. IV thrombolysis with TNK was given and patient was admitted to ICU for further evaluation and management. PESI score 106 class IV high risk, 11% 30-day mortality in this group, High risk PE?bilateral saddle PE s/p s/p TNK 2152 hrs on 06/08/2025. Currently started on anticoagulation with IV heparin. CTA chest: Positive for large multiple bilateral pulmonary artery emboli, including saddle type emboli in the right and left main pulmonary artery segments CXR: Mild to moderate enlargement cardiac contour. Large retrocardiac gastric hernia. No pulmonary edema or pneumonia. Echocardiogram 06/08/2025 shows LV normal size and function EF 55 to 60%, RV size is moderately increased with volume and pressure overload, systolic function severely decreased, RVSP 72 mmHg, RAP 15, moderate to severe TR. Venous duplex ultrasound limited study, no DVT demonstrated. 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 Also reported history of polymyalgia rheumatica and is on chronic low-dose steroid therapy. Patient also reported she had chronic bilateral lower extremity edema with erythema and tenderness. Reported that she has been prescribed Lasix in the past for lower extremity swelling denied any history of heart failure. No reported improvement in lower extreme edema, still 3+ bilateral pitting edema. 5currently in ICU, saturating 94% on room air. Patient is sitting upright in bed, reported improvement in symptoms. Patient was diagnosed with high risk pulm embolism, saddle embolism bilateral pulmonary arteries, IV thrombolysis was given, s/p TKA 2152 hrs on 06/08/2025. IV heparin was recommended to be started after thrombolysis last night, ICU team ordering PTT and will start heparin drip. Ordered repeat echocardiogram for tomorrow to evaluate for RV strain. 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 Recommendations: - Will get repeat echocardiogram to evaluate any improvement in RV strain. - Recommend to initiate anticoagulation with heparin gtt. - Will reevaluate repeat echocardiogram if mechanical thrombectomy to me if still indicated - Keep K+ >4 and Mg >2 at all times according to classic cardiology literature - Consider IV diuretics and advanced airway management if respiratory status worsens. Rest of the management deferred to primary team. Thank you for cardiology consultation. We appreciate the opportunity to participate in this patient's care. Will continue to follow-up on this patient This case was discussed with firefighter type one, Dr. Pradhan. Ida Tai MD PG3 Attending Provider Attestation/Addendum I have personally seen and examined the patient separately on the above date of service and discussed the plan of care with the resident. I reviewed the resident Dr. Fernandez consultation note and agree with the resident findings and plan in the note above and have also edited the documentation to reflect my findings and plan. A 84-year-old female with a past medical history of recent new diagnosis of congestive heart failure on diuretics [address] Franklin, type 2 diabetes mellitus, essential hypertension, hypothyroidism glaucoma, obesity Presented to the emergency department for severe shortness of breath and hypoxia. Patient apparently tried to reach her primary firefighter type one Dr. Mahan but was only able to get voicemail and hence came to the emergency department. In the emergency department patient was saturating only at 75% on 6 L nasal cannula initially and also on nonrebreather. Patient was tachypneic at 30-40 times per minute. Initial EKG there was a question of possible STEMI in the emergency department staff did call the [facility] on-call firefighter type one who indicated it was an old infarct and declined the transfer. I was contacted immediately about the patient and reviewed the EKG and showed normal sinus rhythm with nonspecific interventricular conduction delay but there was no clearance evidence of any kind of STEMI or acute coronary syndrome. Initial chest x-ray and did not show any significant vascular congestion nor any sign of significant consolidation or pneumonia.Upon further discussion patient apparently was still severely hypoxic with saturation which is 85 to 82% and recommended to get a stat CT for the patient to rule out any kind of pulmonary embolism. Also recommended to give aspirin 325 mg x 1 and start heparin drip with bolus even prior to the CT as it would be helpful to treat any PE or ACS. As expected CT of the chest did confirm bilateral extensive pulmonary emboli almost occluding the left pulmonary artery as well as the right pulmonary artery along with a saddle embolus in the main PA indicating submassive to massive embolism. Patient was placed on high flow oxygen at 40 L with 100% oxygen but her saturation remained in the low 80s. Every time patient was trying to communicate saturations decreased to 70%, work of breathing was increased with significant tachypnea of 30-40/min blood pressure was stable with systolic around 110/60 mmHg to 130/70 mmHg. Patient was still awake alert oriented x 3. Initial plan was to take the patient for mechanical pulmonary thrombectomy on Tuesday morning.but is her clinical condition appeared to be deteriorating, I discussed with production supervisor trainee on-call Dr. Lundberg who kindly came down to see the patient in the emergency department. Decision was made to do TNK IV 50 mg x 1 given her tenuous respiratory status. #Acute saddle pulmonary embolism- Acute bilateral pulmonary artery Embolism #Acute congestive heart failure-recent diagnosed in May 2025 #NSTEMI Type 2-elevated troponins #HTN #DM #Hypothyroidism #Obesity # BYRON on CPAP # Polymyalgia rheumatica # History of GBS # Acute hypoxic respiratory failure - improving Patient had multiple questions and wanted us to talk to her family members which we did over the phone and answered all questions in detail. All contraindications for TNK were ruled out and patient was given 1 dose of 50 mg IV tenecteplase without any major complications. Patient recommended to continue with IV heparin and continue to check PTT every 6 hours. Patient admitted to the ICU for close monitoring overnight and continue with high flow oxygen via nasal cannula at 40 L with 100% FiO2 for now and continue to taper up to oxygen slowly based on her response. Patient has responded very well to the TNK 50 mg IV x 1 dose. Patient is only on oxygen by nasal cannula at 4 L today. And will continue to taper that off. Clinical response has been excellent with TN K and will hold off on the bilateral mechanical thrombectomy with penumbra device on Tuesday. Echo completed showed normal LV size and function with an estimated EF 55 to 60%. Moderately increased RV size with pressure and volume overload. RV free function severely decreased. Severely elevated RVSP at 22 mmHg and moderate to severe TR noted. When hemodynamically stable and no further procedures are planned. Patient can be transition from IV heparin drip to Eliquis twice daily as per the PE or pulmonary embolism anticoagulation protocol. No need of trending of any further troponins. Patient diagnosed with recent CHF-unclear if systolic versus diastolic right heart failure or combined heart failure Echo due to report as noted above Patient was recently started on Lasix at home by Dr. Franklin and her leg swelling has improved tremendously since then. Her hypokalemia is mostly secondary to the diuresis and will replace it accordingly. Lasix held on admission but will restart as the blood pressure and hemodynamic instability improved. Keep potassium greater than 4 and magnesium greater than 2+ all the time. Check TSH A1c and lipid profile for further cardiac risk stratification. Dr. Franklin will continue to follow the patient from today. There is a high probability of sudden, clinically significant or life threatening deterioration in the patient condition which required the highest level of physician preparedness to intervene urgently. I have personally spent 35 minutes of critical care time, exclusive of time spent on any procedures, in evaluation and management of this critically ill patient. Freddie Pradhan M.D. Interventional Cardiology
[2025-06-09 11:21] LABS: Partial Thromboplastin Time 26.4 Seconds (22.0-36.0)
[2025-06-09] MEDS: FUROSEMIDE INJ 10 MG/ML VIAL 2 ML 20 MG IVP ×2 (11:50→20:31)
[2025-06-09] MEDS: Heparin/D5w 25K 250 ML Ivpb 25,000 UNIT/250 ML BAG 17.997 UNIT IV (11:54)
[2025-06-09] MEDS: HEPARIN SOD INJ 5000 UNIT/ML VIAL 8000 UNIT IV (11:54)
--- NOTE | 2025-06-09 16:15 | ESPR_ITS ---
<Statement entered by Adrian Benson MD - 06/11/25 16:15> I attest that I was physically present for the evaluation, physical examination, lab and imaging review of the patient with the residents. I discussed the case with the residents and agree with the findings and plans of care as documented below. Adrian Benson MD <Statement entered by Adri Preciado MD - 06/09/25 19:55> Patient was seen and examined at bedside. I agree on the assessment and plan on this note as documented by resident iKnza Cm DO PGY1. 84-year-old female with past medical history as below was admitted to intensive care unit for bilateral pulmonary artery emboli including saddle emboli status post tPA started on heparin drip and downgraded to telemetry. Patient reported significant extensive swelling of bilateral lower extremities for last 2 to 3 weeks with warmth. Bilateral venous Doppler is negative, patient at bedside stable on room air, patient follows Dr. Franklin outpatient was diagnosed with congestive heart failure currently received Lasix 20 mg IV today. Did have elevated troponin we will continue to trend until downtrend. Will continue home dose prednisone which patient takes for underlying rheumatological condition. Continue levothyroxine for hypothyroidism. Monitor blood pressure, hold antihypertensive medication. Disposition telemetry further management of pulmonary embolism and heart failure with preserved ejection fraction. Case discussed with attending Dr. Adrian Preciado MD PGY-2 Documentation for date of: 06/09/25 Subjective Subjective Interval history: Patient was downgraded to floors today. Patient seen and examined in the ICU. Patient reports much improved shortness of breath. No current complaints. Denies chest pain, abdominal pain, urinary symptoms or fever. Reports leg swelling has gone down since admission Continue to monitor oxygen saturation. Increased diuresis, IV Lasix 20 mg x 1 today. Start IV Lasix 40 mg daily tomorrow. Monitor renal function following diuresis. Follow-up troponins until downtrend. Restart BP meds as tolerated. Exam Vital Signs Temp Pulse Resp BP Pulse Ox O2 Del Method O2 Flow Rate 97.8 F 91 21 H 137/74 H 94 L Room Air 8 06/09/25 12:00 06/09/25 16:00 06/09/25 16:00 06/09/25 16:06/09/25 16:00 06/09/25 15:00 06/09/25 08:00 FiO2 25 06/09/25 08:00 Narrative Exam GENERAL: AOx3, no acute distress, lying comfortably in bed HEENT: NC/AT, mucous membranes moist, bilateral sclera anicteric CARDIOVASCULAR: regular rate and rhythm, S1/S2 present, no murmurs appreciated PULMONARY: clear to auscultation bilaterally, no rales/rhonchi/wheezes ABDOMINAL: soft, non-tender, non-distended, no rebound/guarding, bowel sounds present EXTREMITIES: BLE 2+ pitting edema up to knees SKIN: warm and dry, intact, no rashes NEURO: CN II-XII grossly intact, no focal deficits, alert, following commands Objective Labs 06/10/25 02:30 06/10/25 02:30 Labs: Laboratory Results - last 24 hr 06/08/25 06/08/25 06/08/25 15:45 16:37 18:13 WBC 9.2 RBC 4.48 Hgb 15.2 Hct 44.2 MCV 99 MCH 33.9 MCHC 34.4 RDW Std Deviation 47.6 H Plt Count 207 Neut % (Auto) 73 Lymph % (Auto) 16 [place] % (Auto) 10 Eos % (Auto) 0 Baso % (Auto) 0 Neut # (Auto) 6.7 Lymph # (Auto) 1.5 [place] # (Auto) 0.9 H Eos # (Auto) 0.0 Baso # (Auto) 0.0 Immature Gran # (Auto) 0.02 H Absolute Nucleated RBC 0.00 Immature Gran % 0 Nucleated RBC % 0 PT 12.6 H INR 1.2 APTT 27.1 VBG pH VBG pCO2 VBG pO2 VBG O2 Sat (Joselo) VBG Base Excess Sodium 137 Potassium 2.8 L Chloride 96 L Carbon Dioxide 25.8 Anion Gap 15 BUN 21 Creatinine 1.0 Estim Creat Clear Calc 47.0 L eGFR 55 L BUN/Creatinine Ratio 21 H Glucose 144 H Calculated Osmolality 279 Lactic Acid Calcium 9.7 Corrected Calcium 9.7 Phosphorus Magnesium 2.1 Total Bilirubin 0.8 AST 40 H ALT 17 Alkaline Phosphatase 83 Troponin I 0.307 H* 0.720 H* D B-Natriuretic Peptide 323 H Total Protein 6.9 Albumin 4.1 Globulin 2.8 Albumin/Globulin Ratio 1.5 Free T4 1.60 Ur Collection Type Catheter Urine Color Yellow Urine Clarity Turbid A Urine pH 5.5 Ur Specific [place] 1.019 Urine Protein Trace Urine Glucose (UA) Negative Urine Ketones Negative Urine Blood Negative Urine Nitrite Negative Urine Bilirubin Negative Urine Urobilinogen (Auto) 2.0 Ur Leukocyte Esterase Positive Urine RBC 4 H Urine WBC 118 H Ur Squamous Epith Cells 1 Amorphous Crystals Present A Urine Bacteria 3+ A Hyaline Casts 2 H Granular Casts 1 Ur Culture Indicated? Yes Urine Opiates Screen Negative Urine Fentanyl Screen Negative Ur Barbiturates Screen Negative U Amphetamin/Meth Scrn Negative U Benzodiazepines Scrn Negative U Cocaine Metab Screen Negative U Marijuana (THC) Screen Negative 06/08/25 06/08/25 06/09/25 19:02 23:16 05:00 WBC 9.3 RBC 4.30 Hgb 14.4 Hct 42.3 MCV 98 MCH 33.5 MCHC 34.0 RDW Std Deviation 47.2 H Plt Count 172 D Neut % (Auto) 73 Lymph % (Auto) 15 [place] % (Auto) 10 Eos % (Auto) 1 Baso % (Auto) 1 Neut # (Auto) 6.8 Lymph # (Auto) 1.4 [place] # (Auto) 1.0 H Eos # (Auto) 0.1 Baso # (Auto) 0.1 Immature Gran # (Auto) 0.03 H Absolute Nucleated RBC 0.00 Immature Gran % 0 Nucleated RBC % 0 PT INR APTT VBG pH 7.46 VBG pCO2 37 VBG pO2 30 VBG O2 Sat (Joselo) 53 L VBG Base Excess 3 Sodium 139 Potassium 3.8 D Chloride 101 Carbon Dioxide 23.1 Anion Gap 15 BUN 20 Creatinine 0.7 Estim Creat Clear Calc 67.8 eGFR > 60 BUN/Creatinine Ratio 29 H Glucose 102 Calculated Osmolality 280 Lactic Acid 2.0 Calcium 9.1 Corrected Calcium 9.7 Phosphorus 3.7 Magnesium 2.1 Total Bilirubin 0.9 AST 26 ALT 10 Alkaline Phosphatase 68 Troponin I 1.251 H* D B-Natriuretic Peptide Total Protein 5.5 L Albumin 3.3 L D Globulin 2.2 L Albumin/Globulin Ratio 1.5 Free T4 Ur Collection Type Urine Color Urine Clarity Urine pH Ur Specific [place] Urine Protein Urine Glucose (UA) Urine Ketones Urine Blood Urine Nitrite Urine Bilirubin Urine Urobilinogen (Auto) Ur Leukocyte Esterase Urine RBC Urine WBC Ur Squamous Epith Cells Amorphous Crystals Urine Bacteria Hyaline Casts Granular Casts Ur Culture Indicated? Urine Opiates Screen Urine Fentanyl Screen Ur Barbiturates Screen U Amphetamin/Meth Scrn U Benzodiazepines Scrn U Cocaine Metab Screen U Marijuana (THC) Screen 06/09/25 10:04 WBC RBC Hgb Hct MCV MCH MCHC RDW Std Deviation Plt Count Neut % (Auto) Lymph % (Auto) [place] % (Auto) Eos % (Auto) Baso % (Auto) Neut # (Auto) Lymph # (Auto) [place] # (Auto) Eos # (Auto) Baso # (Auto) Immature Gran # (Auto) Absolute Nucleated RBC Immature Gran % Nucleated RBC % PT INR APTT 26.4 VBG pH VBG pCO2 VBG pO2 VBG O2 Sat (Joselo) VBG Base Excess Sodium Potassium Chloride Carbon Dioxide Anion Gap BUN Creatinine Estim Creat Clear Calc eGFR BUN/Creatinine Ratio Glucose Calculated Osmolality Lactic Acid Calcium Corrected Calcium Phosphorus Magnesium Total Bilirubin AST ALT Alkaline Phosphatase Troponin I B-Natriuretic Peptide Total Protein Albumin Globulin Albumin/Globulin Ratio Free T4 Ur Collection Type Urine Color Urine Clarity Urine pH Ur Specific [place] Urine Protein Urine Glucose (UA) Urine Ketones Urine Blood Urine Nitrite Urine Bilirubin Urine Urobilinogen (Auto) Ur Leukocyte Esterase Urine RBC Urine WBC Ur Squamous Epith Cells Amorphous Crystals Urine Bacteria Hyaline Casts Granular Casts Ur Culture Indicated? Urine Opiates Screen Urine Fentanyl Screen Ur Barbiturates Screen U Amphetamin/Meth Scrn U Benzodiazepines Scrn U Cocaine Metab Screen U Marijuana (THC) Screen ABG Interpretation ABG results: 06/08/25 06/08/25 15:53 23:16 ABG pH 7.51 H ABG pCO2 33 ABG pO2 44 L* ABG HCO3 26 ABG O2 Saturation 82 L ABG Base Excess 4 H VBG pH 7.46 VBG pCO2 37 VBG pO2 30 VBG Base Excess 3 Quality Measures Quality Measures none Advance care planning discussed with:: patient Assessment & Plan Assessment Current Active Medications: Generic Name Dose Route Start Last Admin Trade Name Freq PRN Reason Stop Dose Admin Acetaminophen 650 mg 06/08/25 18:13 Acetaminophen 325 Mg Tablet PO 07/08/25 18:12 Q4HR PRN Pain Scale 1-3 or Fever Heparin Sodium/Dextrose 25,000 unit in 250 mls @ 17.997 mls/hr 06/09/25 12:00 06/09/25 11:54 Heparin In D5w Ivpb IV 06/23/25 11:59 17.89 units/kg/hr .[id number] KARINA 17.997 mls/hr Administration Protocol 17.89 UNITS/KG/HR Levothyroxine Sodium 75 mcg 06/09/25 07:05 06/09/25 08:27 Levothyroxine Sodium 25 Mcg Tablet PO 07/09/25 07:04 75 mcg ACBR KARINA Administration Pantoprazole Sodium 40 mg 06/09/25 09:00 06/09/25 08:29 Pantoprazole Inj 40 Mg Vial IVP 07/09/25 08:59 40 mg QDAY KARINA Administration Prednisone 5 mg 06/09/25 11:45 06/09/25 11:51 Prednisone 5 Mg Tablet PO 07/09/25 11:44 5 mg QDAY KARINA Administration Plan Avril Blankenship is a 84F with pmhx significant for HTN, glaucoma, hypothyroidism, 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 #Acute hypoxic respiratory failure resolved 11/18 #Saddle pulmonary embolus s/p TNK 06/08/25 #Respiratory alkalosis, resolved Presented with worsening SOB requiring more home O2, eventually requiring high flow NC of 40L to maintain adequate oxygenation. Initially was admitted to ICU where tenecteplase was administered with resolution of respiratory failure. CTA chest shows large multiple bilateral pulmonary artery emboli including saddle type emboli in the right and left main pulmonary artery segment. CXR shows mild to moderate enlargement cardiac contour. Plan: - CTM O2 saturation - Cardiology consulted, recs appreciated: continue heparin drip for at least 24- 48h and switch to Eliquis 10 mg BID and ambulate as tolerated. Avoid NSAIDs. #HFpEF (55-60%) #Pulmonary HTN Seen recently in Dr. Franklin's office and was diagnosed with CHF. Currently denies orthopnea or PND. Previously had dyspnea on exertion with extreme leg edema, however patient was subsequently started on spironolactone 25 mg and Lasix 40 mg with improvement of symptoms. ] 06/08 echocardiogram shows normal LV size and function approximately EF 55 to 60%. RV size moderately increased with pressure and volume overload RV systolic function is severely decreased. Moderate to severe TR. Moderate to severe pulmonary hypertension with RVSP is 72 mmHg Pulmonary hypertension likely group 3 as secondary to saddle embolism. PESI score Plan: - Cardiology consulted, recs appreciated - IV Lasix 20 mg x1 - Start IV lasix 40 mg tomorrow - Strict I&Os, daily weights - Consider starting SGLT-2 inhibitors and resuming spironolactone outpatient when clinically stable - Follow up outpatient cardiology for further management #Elevated troponins #NSTEMI type II On admission troponins 0.307->0.720->1.251. Likely 2/2 to pulmonary embolism obstruction causing R heart strain therefore demand ischemia. Plan: - CTM for signs of chest pain - F/u troponin #HTN Patient has hx of HTN. 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 Benson, and PGY-2 Dr. Preciado. Kinza Cm, DO PGY-1 Internal Medicine Attending Provider Attestation/Addendum I attest that I was physically present for the evaluation, physical examination, lab and imaging review of the patient with the residents. I discussed the case with the residents and agree with the findings and plans of care as documented above. Adrian Benson MD
--- NOTE | 2025-06-09 18:14 | ESCONSULT_ITS ---
RE: MEGHNA OLIVEROS : 1940 DATE OF CONSULTATION: 06/09/2025 REASON FOR EVALUATION: Cardiovascular evaluation of the patient following pulmonary embolism episode, requiring thrombolytic therapy and mild troponin elevation. CHIEF COMPLAINT: Shortness of breath. HISTORY OF PRESENT ILLNESS: The patient is an 84-year-old female who is well known to me. She was seen by me recently in my office with chronic right heart failure symptoms, chronic edema, shortness of breath, only on exertion. She was doing fairly well until yesterday. Her shortness of breath suddenly got worse and came with severe shortness of breath and hypoxemia in the emergency room with general weakness and tiredness. The patient had EKG changes of left bundle branch block pattern, sinus tachycardia, mild elevation of repolarization abnormalities with left bundle branch block, definitely did not have a myocardial infarction. Initial concern was myocardial infarction, which was unlikely. The EKG clearly did not show any myocardial infarction, but CT scan was appropriately performed. CTA of the chest showed evidence of massive pulmonary embolism more like between submassive and massive embolism, hemodynamically stable, but severely hypoxemic. Decision was made to thrombolyze the patient, which is appropriate. She responded clinically quite well. In fact, she is now saturating 93% room air. Initial saturation only 75% of 6 L nasal cannula. The patient initially required 40 liters of oxygen, but now she is on room air, saturating well, excellent response. The initial blood gas did show a pH of 7.5, pCO2 of 33, potassium 2.8, troponin level initially was 0.30, went up to 0.72. Now, the troponin level is up to 1.25. The patient is quite comfortable not having any shortness of breath. She is not having any pleuritic chest pain. Lab data shows hemoglobin did not drop, which is excellent. Hemoglobin was 15 on admission now at 14.4. Venous duplex was inconclusive. There was no clear evidence of thrombi, but it was a limited study because she was not comfortable getting the study. Cardiac echo show evidence of right ventricular pressure and volume overload. PA pressure 72 yesterday with moderate to severe tricuspid regurgitation. Left ventricular function is normal, ejection fraction is 60%. There is no left ventricular wall motion abnormalities other than flattening of the septum. EKG shows sinus rhythm, left bundle branch block with repolarization abnormalities compared to the EKG that was performed in my office. There is no change at all. She is uncomfortable, not having any shortness of breath anymore at rest. She is on IV heparin. The patient's other medical problems include she has been on prednisone for temporal arteritis. She has chronic heart failure with preserved ejection fraction, HFpEF on antihypertensive drug therapy and longstanding hypertension. MEDICATION: List at home includes enalapril 20 mg twice daily for hypertension, furosemide 20 mg daily, levothyroxine 75 mcg daily, and metoprolol succinate 100 mg twice daily. ALLERGIES: HE IS ALLERGIC TO MANY ALLERGIES. CODEINE CAUSING SEVERE SHORTNESS OF BREATH. ERYTHROMYCIN CAUSES ITCHING. PENICILLIN ALSO CAUSES RASH AND ITCHING. TESSALON AND COUGH SYRUP ARE ALSO ALLERGIC TOO, CIPROFLOXACIN WELL LEVOFLOXACIN AND LATEX ALLERGIES. SOCIAL HISTORY: The patient is . She is a not a smoker. Does not drink alcoholic beverages. FAMILY HISTORY: Mother had cardiac problems. One of the brothers had multiple sclerosis. REVIEW OF SYSTEMS: CARDIOVASCULAR SYSTEM: No chest pain PULMONARY: Severe shortness of breath, no cough, also history of runny nose, multiple allergies. GASTROINTESTINAL: No history of nausea, vomiting, or bleeding. The patient did have a history of acid problems in the past. No hiatal hernia or reflux. GENITOURINARY: No history of frequency or dysuria. No history of bleeding issues. EMERGENCY DETAIL DRIVER: No neurologic symptoms. Never had any neurologic issues. DIAGNOSES: 1. Acute massive pulmonary thromboembolism, requiring thrombolytic therapy. 2. Troponin elevation secondary to right ventricle strain and due to massive pulmonary embolism. 3. Moderate to severe pulmonary hypertension due to acute pulmonary thromboembolism. 4. Hypertension with hypertensive cardiovascular disease. 5. Heart failure with preserved ejection fraction. 6. History of temporal arteritis on prednisone. 7. Hiatal hernia. 8. Multiple allergies, allergic rhinitis. 9. Osteoarthritis. DISCUSSION AND RECOMMENDATIONS: The patient is an 84-year-old lady who is known to me has multiple medical problems, comorbidities, hypertension, longstanding temporal arteries, osteoarthritis, came to the hospital with sudden onset of worsening of shortness of breath, severe hypoxemia, classic, acute massive and submassive pulmonary thromboembolism with partial saddle embolus and occlusion of the right and left main pulmonary arteries, responded clinically quite well to thrombolytic therapy. She is doing clinically exceptionally well. We can transfer her out to telemetry later this morning since she is hemodynamically and oxygenation is stable. There is no need for pulmonary thrombectomy since she responded well to the anticoagulation as well as TNKs and thrombolytic therapy. The patient will be continued on heparin drip for at least 24 to 48 hours and switch her to Eliquis 10 mg twice daily and ambulate her as tolerated. Expect her to stay 2-3 days in the hospital before discharging her home. Also has severe allergies to the nose, starting on montelukast to prevent some allergic rhinitis. I discussed extensively about not using NSAIDs because of anticoagulation for her arthritis and also pantoprazole to prevent any GI problems. Thank you for letting me participate in the care of this patient. We will be glad to follow the patient closely until discharge and see her in my office as an outpatient to keep her regular followup appointments. DT: 16:43:29 TT: 17:57:00 Ref: [id number] - TID: [id number] MTDD
[2025-06-09 18:42] LABS: Partial Thromboplastin Time > 139.0 Seconds (22.0-36.0)
[2025-06-09] MEDS: MONTELUKAST SODIUM 10 MG TABLET PO (20:32)
[2025-06-10] VITALS (10 sets, daily range): BP systolic 116–145; BP diastolic 48–86; PULSE 66–110; RESP 12–98; TEMP 35.9–36.9; O2SAT 90–95; BMI 37.4
[2025-06-10 03:08] LABS: Basophils # (Auto) 0.1 Thou/mm3 (0.0-0.2); Basophils % (Auto) 1 % (0-2.5); Eosinophils # (Auto) 0.2 Thou/mm3 (0.0-0.5); Eosinophils % (Auto) 3 % (0-10); Hematocrit 39.6 % (36.0-46.0); Hemoglobin 13.3 g/dL (12.0-16.0); Immature Granulocytes Auto 0.03 Thou/mm3 (0.00-0.00); Lymphocytes # (Auto) 1.4 Thou/mm3 (1.0-4.8); Lymphocytes % (Auto) 21 % (10-50); Mean Corpuscular HGB Conc 33.6 g/dl (31.0-37.0); Mean Corpuscular Hemoglobin 33.7 pg (25.0-35.0); Mean Corpuscular Volume 100 fL (80-100); Monocytes # (Auto) 0.8 Thou/mm3 (0.0-0.8); Monocytes % (Auto) 11 % (0-12); Neutrophils # (Auto) 4.3 Thou/mm3 (1.8-7.7); Neutrophils % (Auto) 63 % (37-80); Nucleated Red Blood Cell # 0.00 Thou/mm3 (0.00-0.00); Nucleated Red Blood Cell % 0 /100 WBC (0); Platelet Count 180 Thou/mm3 (140-440); RDW Standard Deviation 48.1 fL (36.4-46.3); Red Blood Count 3.95 Miln/mm3 (4.00-5.20); White Blood Count 6.7 Thou/mm3 (3.6-11.0)
[2025-06-10 03:48] LABS: Partial Thromboplastin Time 120.3 Seconds (22.0-36.0)
[2025-06-10 03:59] LABS: Alanine Aminotransferase < 7 U/L (10-49); Albumin, Serum 3.1 gm/dL (3.4-4.8); Albumin/Globulin Ratio 1.5 (1.2-2.2); Alkaline Phosphatase 61 U/L (46-116); Anion Gap 14 (7-16); Aspartate Amino Transferase 16 U/L (0-34); BUN/Creatinine Ratio 18 Ratio (12-20); Bilirubin,Total 0.6 mg/dL (0.3-1.2); Blood Urea Nitrogen 11 mg/dL (9-23); Calcium 8.9 mg/dL (8.3-10.6); Calcium (Corrected) 9.6 mg/dL (8.5-10.1); Carbon Dioxide 24.4 mMol/L (20.0-31.0); Chloride 102 mMol/L (98-107); Creatinine (Component) 0.6 mg/dL (0.6-1.3); Estimated Creatinine Clearance 79.1 mL/min (>60); Globulin 2.1 gm/dL (2.3-3.5); Glucose 110 mg/dL (74-106); Magnesium 2.0 mg/dL (1.6-2.6); Osmolality,Calculated 279 (275-295); Phosphorous 3.0 mg/dL (2.4-5.1); Potassium 3.4 mMol/L (3.4-5.1); Sodium 140 mMol/L (136-145); Total Protein 5.2 gm/dL (5.7-8.2); eGFR > 60 See Note
[2025-06-10 04:01] LABS: Troponin I 0.377 ng/mL (0.0-0.045)
[2025-06-10] MEDS: Heparin/D5w 25K 250 ML Ivpb 25,000 UNIT/250 ML BAG 11.961 UNIT IV (04:53)
[2025-06-10] MEDS: LEVOTHYROXINE SODIUM 25 MCG TABLET 75 MCG PO (05:03)
[2025-06-10] MEDS: FUROSEMIDE INJ 10 MG/ML 4ML VIAL 40 MG IVP (08:29)
[2025-06-10] MEDS: POTASSIUM CHLORIDE 10% 20 MEQ/15 ML UDC 40 MEQ PO (09:58)
[2025-06-10] MEDS: Magnesium Sulfate 2 GM Ivpb 2 GM/50 ML BAG IV (09:59)
[2025-06-10] MEDS: cefTAZidime 2 GM in SODIUM CHLORIDE 0.9% 50 ML IV ×3 (10:00→21:14)
--- NOTE | 2025-06-10 10:00 | PC.SS ---
LITHOPONE CHARGER conducted bedside contact with the patient conduct initial assessment and to discuss discharge planning.? Patient confirmed demographic information.? Patient is a retired system support analyst.? Patient resides alone at home.? Patient has an adult son, Mo Blankenship; who resides in [place].? Other son resides in [place], [place].? Patient utilizes a walker to assist with ambulation.? Per patient, walker at home belonged to spouse; prior to spouse passing away.? Patient reports use of home oxygen.? Vendor is [id number].? In addition patient utilizes a C-PAP machine for nocturnal use.? Patient describes ability to complete ADL?s independently.? Patient describes possessing the ability to drive vehicle.? Patient identified sister, Etta Card, ; as surrogate medical decision maker.? Patient?s PCP is Juliana Giang.? Patient?s wrecker operator is Dr. Gregory. ?Patient requesting rollator walker upon discharge.? No preferred vendor identified.? Discharge plan is for the patient to return home.? If home health recommended no preferred vendor identified.? Patient reports access to appropriate utilities and provisions at home.? Family will provide transportation on behalf of the patient. ?No further discharge needs identified by the patient.? No further intervention required at this time, hospital social worker will be available to address any further concerns.? Next of Kin: Etta Moreno D/Manuel Plan: Home
[2025-06-10] MEDS: POTASSIUM CHLORIDE 10% 20 MEQ/15 ML UDC PO (11:50)
[2025-06-10 12:41] LABS: Partial Thromboplastin Time 81.1 Seconds (22.0-36.0)
[2025-06-10 12:49] LABS: Troponin I 0.297 ng/mL (0.0-0.045)
--- NOTE | 2025-06-10 13:19 | ESPR_ITS ---
<Statement entered by Adri Preciado MD - 06/11/25 10:05> Patient was seen and examined at bedside. I agree on the assessment and plan on this note as documented by resident Kinza Cm DO PGY1. 84-year-old female with past medical history as below, was admitted for significant bilateral pulmonary emboli for which she required tPA in ICU, downgraded on heparin drip will continue heparin drip cardiology is following closely will transition to Eliquis per cardiology recommendations. Will continue IV diuresis with Lasix will likely transition to p.o. in a.m. Continue home dose levothyroxine, patient is stable, anticipate discharge post PT evaluation, per physical therapy recommendations. Case discussed with attending Dr. Adrian Preciado MD PGY-2 <Statement entered by Adrian Benson MD - 06/11/25 09:33> I attest that I was physically present for the evaluation, physical examination, lab and imaging review of the patient with the residents. I discussed the case with the residents and agree with the findings and plans of care as documented below. Adrian Benson MD Documentation for date of: 06/10/25 Subjective Subjective Interval history: No acute overnight events. Patient seen and examined at bedside. Patient is feeling much better today, denies shortness of breath, chest pressure or urinary symptoms. She reports leg swelling is much improved since admission. Reports not sleeping very well last night due to heparin drip being uncomfortable and painful. Patient reports using CPAP at home. 24h I/O: 0.9/1L Net -0.2L. Patient is saturating low 90s-95% on room air, ordered CAFETERIA DIRECTOR. New right arm bruising due to heparin IV blowing, and heparin drip moved to left hand. Will await cardiology recommendations for heparin drip. Continue Lasix 40 IV today, plan to switch on PO Lasix 40 tomorrow, reassess fluid status tomorrow. Urine culture grew Klebsiella pneumonia, started ceftazidime 2 g IV every 8 hours. Ordered CPAP at night. Exam Vital Signs Temp Pulse Resp BP Pulse Ox O2 Del Method O2 Flow Rate 96.7 F L 94 21 H 129/78 94 L Room Air 8 06/10/25 08:00 06/10/25 08:29 06/10/25 08:00 06/10/25 08:29 06/10/25 08:00 06/10/25 08:00 06/09/25 08:00 25 06/09/25 08:00 Narrative Exam GENERAL: AOx3, no acute distress, lying comfortably in bed HEENT: NC/AT, mucous membranes moist, bilateral sclera anicteric CARDIOVASCULAR: regular rate and rhythm, S1/S2 present, no murmurs appreciated PULMONARY: clear to auscultation bilaterally, no rales/rhonchi/wheezes ABDOMINAL: soft, non-tender, non-distended, no rebound/guarding, bowel sounds present EXTREMITIES: BLE 2+ pitting edema up to knees, BLE tender to palpation, +R arm bruising SKIN: warm and dry, intact, no rashes NEURO: CN II-XII grossly intact, no focal deficits, alert, following commands Objective Labs 06/10/25 02:30 06/10/25 02:30 Labs: Laboratory Results - last 24 hr 06/09/25 06/10/25 06/10/25 17:40 02:30 11:14 WBC 6.7 RBC 3.95 L Hgb 13.3 Hct 39.6 MCV 100 MCH 33.7 MCHC 33.6 RDW Std Deviation 48.1 H Plt Count 180 Neut % (Auto) 63 Lymph % (Auto) 21 [place] % (Auto) 11 Eos % (Auto) 3 Baso % (Auto) 1 Neut # (Auto) 4.3 Lymph # (Auto) 1.4 [place] # (Auto) 0.8 Eos # (Auto) 0.2 Baso # (Auto) 0.1 Immature Gran # (Auto) 0.03 H Absolute Nucleated RBC 0.00 Immature Gran % 0 Nucleated RBC % 0 APTT > 139.0 H* D 120.3 H* D 81.1 H D Sodium 140 Potassium 3.4 Chloride 102 Carbon Dioxide 24.4 Anion Gap 14 BUN 11 Creatinine 0.6 Estim Creat Clear Calc 79.1 eGFR > 60 BUN/Creatinine Ratio 18 Glucose 110 H Calculated Osmolality 279 Calcium 8.9 Corrected Calcium 9.6 Phosphorus 3.0 Magnesium 2.0 Total Bilirubin 0.6 AST 16 ALT < 7 L Alkaline Phosphatase 61 Troponin I 0.377 H* D 0.297 H* Total Protein 5.2 L Albumin 3.1 L Globulin 2.1 L Albumin/Globulin Ratio 1.5 ABG Interpretation ABG results: 06/08/25 06/08/25 15:53 23:16 ABG pH 7.51 H ABG pCO2 33 ABG pO2 44 L* ABG HCO3 26 ABG O2 Saturation 82 L ABG Base Excess 4 H VBG pH 7.46 VBG pCO2 37 VBG pO2 30 VBG Base Excess 3 Quality Measures Quality Measures none Advance care planning discussed with:: patient Assessment & Plan Assessment Current Active Medications: Generic Name Dose Route Start Last Admin Trade Name Frekhushbu PRN Reason Stop Dose Admin Acetaminophen 650 mg 06/08/25 18:13 Acetaminophen 325 Mg Tablet PO 07/08/25 18:12 Q4HR PRN Pain Scale 1-3 or Fever Protocol Furosemide 40 mg 06/10/25 09:00 06/10/25 08:29 Furosemide Inj 10 Mg/Ml 4ml Vial IVP 07/10/25 08:59 40 mg QDAY KARINA Administration Heparin Sodium/Dextrose 25,000 unit in 250 mls @ 17.997 mls/hr 06/09/25 12:00 06/10/25 04:53 Heparin In D5w Ivpb IV 06/23/25 11:59 11.89 units/kg/hr .[id number] KARINA 11.961 mls/hr Administration Protocol 17.89 UNITS/KG/HR Ceftazidime 2 gm/ Sodium 50 mls @ 100 mls/hr 06/10/25 08:30 06/10/25 10:30 Chloride IV 06/17/25 08:29 Infused Q8HR KARINA Infusion Levothyroxine Sodium 75 mcg 06/09/25 07:05 06/10/25 05:03 Levothyroxine Sodium 25 Mcg Tablet PO 07/09/25 07:04 75 mcg ACBR KARINA Administration Montelukast Sodium 10 mg 06/09/25 21:00 06/09/25 20:32 Montelukast Sodium 10 Mg Tablet PO 07/09/25 20:59 10 mg HS KARINA Administration Pantoprazole Sodium 40 mg 06/09/25 09:00 06/10/25 08:29 Pantoprazole Inj 40 Mg Vial IVP 07/09/25 08:59 40 mg QDAY KARINA Administration Prednisone 5 mg 06/09/25 11:45 06/10/25 08:33 Prednisone 5 Mg Tablet PO 07/09/25 11:44 5 mg QDAY KARINA Administration Plan Avril Pattie is a 84F with pmhx significant for HTN, glaucoma, hypothyroidism, 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 #Acute hypoxic respiratory failure resolved 11/18 #Saddle pulmonary embolus s/p TNK 06/08/25 #Respiratory alkalosis, resolved Presented with worsening SOB requiring more home O2, eventually requiring high flow NC of 40L to maintain adequate oxygenation. Initially was admitted to ICU where tenecteplase was administered with resolution of respiratory failure. CTA chest shows large multiple bilateral pulmonary artery emboli including saddle type emboli in the right and left main pulmonary artery segment. CXR shows mild to moderate enlargement cardiac contour. Plan: - CTM O2 saturation, CAFETERIA DIRECTOR ordered - Cardiology consulted, recs appreciated: continue heparin drip for at least 24- 48h and switch to Eliquis 10 mg BID and ambulate as tolerated. Avoid NSAIDs. #UTI, Klebsiella pneumoniae Patient does not complain of any urinary symptoms. On admission UA was collected which showed positive leukocyte esterase, 118 WBC and 3+ bacteria, cultures were collected. UCx grew Klebsiella pneumonia Plan: - Start IV ceftazidime 2 g q8h (06/10- - CTM for urinary symptoms #HFpEF (55-60%) #Pulmonary HTN Seen recently in Dr. Franklin's office and was diagnosed with CHF. Currently denies orthopnea or PND. Previously had dyspnea on exertion with extreme leg edema, however patient was subsequently started on spironolactone 25 mg and Lasix 40 mg with improvement of symptoms. 06/08 echocardiogram shows normal LV size and function approximately EF 55 to 60%. RV size moderately increased with pressure and volume overload RV systolic function is severely decreased. Moderate to severe TR. Moderate to severe pulmonary hypertension with RVSP is 72 mmHg Pulmonary hypertension likely group 4 as secondary to saddle embolism. PESI score 96, Class II intermediate risk 3.2-7.1% 30 day mortality Plan: - Cardiology consulted, recs appreciated - IV lasix 40 mg, reassess fluid status tomorrow - Plan to switch to PO Lasix 40 mg tomorrow - Strict I&Os, daily weights - Consider starting SGLT-2 inhibitors and resuming spironolactone outpatient when clinically stable - Follow up outpatient cardiology for further management #Elevated troponins #NSTEMI type II On admission troponins 0.307->0.720->1.251->0.377. Likely 2/2 to pulmonary embolism obstruction causing R heart strain therefore demand ischemia. Plan: - CTM for signs of chest pain #HTN #BYRON Patient has hx of HTN and BYRON and uses CPAP machine at home at night. 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 Benson, and PGY-2 Dr. Preciado. Kinza Cm, DO PGY-1 Internal Medicine
--- NOTE | 2025-06-10 16:30 | PC.SS ---
Rounding Note: Patient receiving Heparin drip. Plan is to transition patient to P.O. Eliquis tomorrow.
--- NOTE | 2025-06-10 17:52 | ESPR_ITS ---
Documentation for date of: 06/10/25 Subjective Subjective Interval history: No acute overnight events. Having some discomfort from HEPARIN drip, otherwise reports feeling well today. Denies new or worsening symptoms. Denies fever, chills, headaches, chest pain, sob, cough, GI or urinary symptoms. Exam Vital Signs Temp Pulse Resp BP Pulse Ox O2 Del Method O2 Flow Rate 98.4 F 74 19 128/74 94 L Room Air 8 06/10/25 16:00 06/10/25 17:12 06/10/25 17:12 06/10/25 16:00 06/10/25 16:00 06/10/25 16:00 06/09/25 08:00 FiO2 25 06/09/25 08:00 Narrative Exam GENERAL * Normal appearance, NAD HEENT * NCAT.?RICK. Oral mucosa is moist. Patent Nares NECK * Supple, nontender, no JVD. CHEST * RRR, no m/g/r * CTAB, no w/r/r, symmetrical expansion. ABDOMEN * Soft, flat, nontender. No guarding/rebound tenderness/masses. * Bowel sounds presents EXTREMITIES * Bilateral edema of LE SKIN * Warm and dry, no jaundice/rashes. NEUROMUSCULAR * No lumbar or midline, no CVA, no paraspinal muscle spasm or tenderness. * Moves all 4 extremities well, with full ROM and good CSM. * HUGHES x4, CN II-XII grossly intact. * No focal neurologic deficits. PSYCHIATRY * Normal mood and affect, cooperative, no SI or HI or hallucinations. Objective Labs 06/10/25 02:30 06/10/25 02:30 Labs: Laboratory Results - last 24 hr 06/09/25 06/10/25 06/10/25 17:40 02:30 11:14 WBC 6.7 RBC 3.95 L Hgb 13.3 Hct 39.6 MCV 100 MCH 33.7 MCHC 33.6 RDW Std Deviation 48.1 H Plt Count 180 Neut % (Auto) 63 Lymph % (Auto) 21 [place] % (Auto) 11 Eos % (Auto) 3 Baso % (Auto) 1 Neut # (Auto) 4.3 Lymph # (Auto) 1.4 [place] # (Auto) 0.8 Eos # (Auto) 0.2 Baso # (Auto) 0.1 Immature Gran # (Auto) 0.03 H Absolute Nucleated RBC 0.00 Immature Gran % 0 Nucleated RBC % 0 APTT > 139.0 H* D 120.3 H* D 81.1 H D Sodium 140 Potassium 3.4 Chloride 102 Carbon Dioxide 24.4 Anion Gap 14 BUN 11 Creatinine 0.6 Estim Creat Clear Calc 79.1 eGFR > 60 BUN/Creatinine Ratio 18 Glucose 110 H Calculated Osmolality 279 Calcium 8.9 Corrected Calcium 9.6 Phosphorus 3.0 Magnesium 2.0 Total Bilirubin 0.6 AST 16 ALT < 7 L Alkaline Phosphatase 61 Troponin I 0.377 H* D 0.297 H* Total Protein 5.2 L Albumin 3.1 L Globulin 2.1 L Albumin/Globulin Ratio 1.5 ABG Interpretation ABG results: 06/08/25 06/08/25 15:53 23:16 ABG pH 7.51 H ABG pCO2 33 ABG pO2 44 L* ABG HCO3 26 ABG O2 Saturation 82 L ABG Base Excess 4 H VBG pH 7.46 VBG pCO2 37 VBG pO2 30 VBG Base Excess 3 Quality Measures Quality Measures none Advance care planning discussed with:: patient Assessment & Plan Assessment Current Active Medications: Generic Name Dose Route Start Last Admin Trade Name Freq PRN Reason Stop Dose Admin Acetaminophen 650 mg 06/08/25 18:13 Acetaminophen 325 Mg Tablet PO 07/08/25 18:12 Q4HR PRN Pain Scale 1-3 or Fever Protocol Furosemide 40 mg 06/11/25 09:00 Furosemide 40 Mg Tablet PO 07/11/25 08:59 QDAY KARNIA Heparin Sodium/Dextrose 25,000 unit in 250 mls @ 17.997 mls/hr 06/09/25 12:00 06/10/25 13:20 Heparin In D5w Ivpb IV 06/23/25 11:59 9.89 units/kg/hr .[id number] KARINA 9.949 mls/hr Titration Protocol 17.89 UNITS/KG/HR Ceftazidime 2 gm/ Sodium 50 mls @ 100 mls/hr 06/10/25 08:30 06/10/25 15:44 Chloride IV 06/17/25 08:29 100 mls/hr Q8HR KARINA Administration Levothyroxine Sodium 75 mcg 06/09/25 07:05 06/10/25 05:03 Levothyroxine Sodium 25 Mcg Tablet PO 07/09/25 07:04 75 mcg ACBR KARINA Administration Montelukast Sodium 10 mg 06/09/25 21:00 06/09/25 20:32 Montelukast Sodium 10 Mg Tablet PO 07/09/25 20:59 10 mg HS KARINA Administration Pantoprazole Sodium 40 mg 06/09/25 09:00 06/10/25 08:29 Pantoprazole Inj 40 Mg Vial IVP 07/09/25 08:59 40 mg QDAY KARINA Administration Prednisone 5 mg 06/09/25 11:45 06/10/25 08:33 Prednisone 5 Mg Tablet PO 07/09/25 11:44 5 mg QDAY KARINA Administration Plan This is a pleasant 84 year-old female with PMHx of HTN, HFpEF (55-60%), glaucoma, hypothyroidism, osteoarthritis of bilateral hands hips and knees, giant cell arteritis, hx 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 IMPRESSION: 1. Acute massive pulmonary thromboembolism, requiring thrombolytic therapy. 2. Troponin elevation secondary to right ventricle strain and due to massive pulmonary embolism. 3. Moderate to severe pulmonary hypertension due to acute pulmonary thromboembolism. 4. Hypertension with hypertensive cardiovascular disease. 5. Heart failure with preserved ejection fraction. 6. History of temporal arteritis on prednisone. 7. Hiatal hernia. 8. Multiple allergies, allergic rhinitis. 9. Osteoarthritis. DISCUSSION AND RECOMMENDATIONS: The patient is an 84-year-old lady who is known to me has multiple medical problems, comorbidities, hypertension, longstanding temporal arteries, osteoarthritis, came to the hospital with sudden onset of worsening of shortness of breath, severe hypoxemia, classic, acute massive and submassive pulmonary thromboembolism with partial saddle embolus and occlusion of the right and left main pulmonary arteries, responded clinically quite well to thrombolytic therapy. She is doing clinically exceptionally well. We can transfer her out to telemetry later this morning since she is hemodynamically and oxygenation is stable. Also has severe allergies to the nose, starting on montelukast to prevent some allergic rhinitis. I discussed extensively about not using NSAIDs because of anticoagulation for her arthritis and also pantoprazole to prevent any GI problems. PLAN: Overall clinically improving, on room, satting well. HEPARIN GGT was discontinued and we started ELIQUIS 10 mg BID. Resumed METOPROLOL 50 mg XL daily, titrate up to home dose (100 mg BID) as tolerated. Continue with LASIX 40 mg daily. Thank you for letting me participate in the care of this patient. We will be glad to follow the patient closely until discharge and see her in office as an outpatient to keep her regular followup appointments. Case was discussed with attending physician, Dr. Franklin. Peggy Santos, DO PGY II This document was transcribed using voice recognition technology. Minor inaccuracies may be present.
[2025-06-10 20:02] LABS: Partial Thromboplastin Time 53.8 Seconds (22.0-36.0)
[2025-06-10] MEDS: METOPROLOL SUCCINATE XL 25 MG TABCR 50 MG PO (20:45)
[2025-06-10] MEDS: MONTELUKAST SODIUM 10 MG TABLET PO (20:45)
[2025-06-10] MEDS: APIXABAN 2.5 MG TABLET 10 MG PO (20:46)
[2025-06-11] VITALS (12 sets, daily range): BP systolic 113–161; BP diastolic 72–93; PULSE 65–97; RESP 15–93; TEMP 36.1–37; O2SAT 91–97; BMI 37.3
--- NOTE | 2025-06-11 01:57 | PC.RT ---
at 0012 per nurse spo2 dropping while pt sleeping, went to assess pt spo2 89% pt awake alert talking explain to pt spo2 dropp to 80s while sleeping at this time spo2 91-92% educated pt on oxygen and cpap, per pt stated is okay to try oxygen first instead of cpap pt nurse place pt on 2L nc no other changes at this time bipap remains in room on stand by.
[2025-06-11] MEDS: cefTAZidime 2 GM in SODIUM CHLORIDE 0.9% 50 ML IV ×3 (05:31→21:11)
[2025-06-11] MEDS: LEVOTHYROXINE SODIUM 25 MCG TABLET 75 MCG PO (05:31)
[2025-06-11 06:01] LABS: Basophils # (Auto) 0.1 Thou/mm3 (0.0-0.2); Basophils % (Auto) 1 % (0-2.5); Eosinophils # (Auto) 0.2 Thou/mm3 (0.0-0.5); Eosinophils % (Auto) 3 % (0-10); Hematocrit 40.8 % (36.0-46.0); Hemoglobin 13.7 g/dL (12.0-16.0); Immature Granulocytes Auto 0.05 Thou/mm3 (0.00-0.00); Lymphocytes # (Auto) 1.4 Thou/mm3 (1.0-4.8); Lymphocytes % (Auto) 21 % (10-50); Mean Corpuscular HGB Conc 33.6 g/dl (31.0-37.0); Mean Corpuscular Hemoglobin 33.6 pg (25.0-35.0); Mean Corpuscular Volume 100 fL (80-100); Monocytes # (Auto) 0.7 Thou/mm3 (0.0-0.8); Monocytes % (Auto) 11 % (0-12); Neutrophils # (Auto) 4.1 Thou/mm3 (1.8-7.7); Neutrophils % (Auto) 63 % (37-80); Nucleated Red Blood Cell # 0.00 Thou/mm3 (0.00-0.00); Nucleated Red Blood Cell % 0 /100 WBC (0); Platelet Count 223 Thou/mm3 (140-440); RDW Standard Deviation 47.7 fL (36.4-46.3); Red Blood Count 4.08 Miln/mm3 (4.00-5.20); White Blood Count 6.6 Thou/mm3 (3.6-11.0)
[2025-06-11 06:33] LABS: Alanine Aminotransferase 7 U/L (10-49); Albumin, Serum 3.4 gm/dL (3.4-4.8); Albumin/Globulin Ratio 1.6 (1.2-2.2); Alkaline Phosphatase 60 U/L (46-116); Anion Gap 9 (7-16); Aspartate Amino Transferase 17 U/L (0-34); BUN/Creatinine Ratio 19 Ratio (12-20); Bilirubin,Total 0.6 mg/dL (0.3-1.2); Blood Urea Nitrogen 13 mg/dL (9-23); Calcium 9.0 mg/dL (8.3-10.6); Calcium (Corrected) 9.5 mg/dL (8.5-10.1); Carbon Dioxide 27.7 mMol/L (20.0-31.0); Chloride 102 mMol/L (98-107); Creatinine (Component) 0.7 mg/dL (0.6-1.3); Estimated Creatinine Clearance 68.3 mL/min (>60); Globulin 2.1 gm/dL (2.3-3.5); Glucose 108 mg/dL (74-106); Magnesium 2.1 mg/dL (1.6-2.6); Osmolality,Calculated 278 (275-295); Phosphorous 3.0 mg/dL (2.4-5.1); Potassium 4.2 mMol/L (3.4-5.1); Sodium 139 mMol/L (136-145); Total Protein 5.5 gm/dL (5.7-8.2); eGFR > 60 See Note
[2025-06-11] MEDS: APIXABAN 2.5 MG TABLET 10 MG PO ×2 (08:53→20:22)
[2025-06-11] MEDS: METOPROLOL SUCCINATE XL 25 MG TABCR 50 MG PO ×2 (08:54→20:35)
--- NOTE | 2025-06-11 10:30 | PC.SS ---
Walkers The diagnosis creates mobility limitation that significantly impairs ability to participate in the patients activities of daily living either in their entirety, or in a reasonable time frame. Also the patient is able to safely use the walker and the patient?s mobility is sufficiently resolved with the use of the walker and cane has been ruled out.
--- NOTE | 2025-06-11 12:02 | PC.SS ---
Hospital Beds Patient?s diagnosis requires positioning of the head or upper body to be elevated more than 30 degrees. Also the diagnosis requires positioning in order to alleviate pain and if the patient requires frequent changes in the body positioning and/or has an immediate need for change in the body position. Pillows and wedges have been considered and ruled out. Pt is in need of a semi-electric hospital bed for a safe discharge
--- NOTE | 2025-06-11 13:23 | ESPR_ITS ---
<Statement entered by Adri Preciado MD - 06/12/25 16:09> Patient was seen and examined at bedside. I agree on the assessment and plan on this note as documented by resident Kinza Cm DO PGY1. 84-year-old female with past medical history as below transitioned to Eliquis per cardiology recommendations, patient is pending physical therapy evaluation. Currently discharge plan is to discharge home, will continue to monitor. Continue home dose Lasix, ceftazidime for UTI. Case discussed with attending Dr. Marcelino Preciado MD PGY-2 Documentation for date of: 06/11/25 Subjective Subjective Interval history: Overnight, heparin was stopped and Eliquis 10 mg twice daily was started as well as metoprolol XL 50 mg QD. Patient was seen and examined at bedside. Patient reports last night respiratory therapist attempted to put on CPAP however was called away for rapid and nurse later came to put nasal cannula. Currently patient is on 2 L saturating 96%. Patient states that she cannot go home today or tomorrow due to insulation cupola operator not being in town and family not being able to help at this time. Request to go home late early Tuesday. Patient reports slight shortness of breath today, feels anxious about being discharged soon. Patient is concerned that she has not had a bowel movement since Tuesday. Denies abdominal pain, urinary symptoms or fever. Per cardiology, heparin stopped and Eliquis 10 mg twice daily started last night. Per cardiology also started metoprolol XL 50 mg daily. Spoke with RT to start CPAP tonight. Wean off supplemental O2 as tolerated and 1.8 L fluid restriction started. Pending PT evaluation. Started senna/docusate for constipation. Exam Vital Signs Temp Pulse Resp BP Pulse Ox O2 Del Method O2 Flow Rate 98.6 F 90 30 H 146/83 H 97 Nasal Cannula 2 06/11/25 12:00 06/11/25 12:00 06/11/25 12:00 06/11/25 12:00 06/11/25 12:00 06/11/25 12:00 06/11/25 12:00 FiO2 25 06/11/25 12:00 Narrative Exam GENERAL: AOx3, no acute distress, lying comfortably in bed HEENT: NC/AT, mucous membranes moist, bilateral sclera anicteric CARDIOVASCULAR: regular rate and rhythm, S1/S2 present, no murmurs appreciated PULMONARY: clear to auscultation bilaterally, no rales/rhonchi/wheezes ABDOMINAL: soft, non-tender, non-distended, no rebound/guarding, bowel sounds present EXTREMITIES: BLE 1+ pitting edema up to knees, BLE tender to palpation with venous stasis dermatitis, +R arm bruising SKIN: warm and dry, intact, no rashes NEURO: CN II-XII grossly intact, no focal deficits, alert, following commands Objective Labs 06/12/25 04:35 06/12/25 04:35 Labs: Laboratory Results - last 24 hr 06/10/25 06/11/25 19:21 05:20 WBC 6.6 RBC 4.08 Hgb 13.7 Hct 40.8 MCV 100 MCH 33.6 MCHC 33.6 RDW Std Deviation 47.7 H Plt Count 223 D Neut % (Auto) 63 Lymph % (Auto) 21 [place] % (Auto) 11 Eos % (Auto) 3 Baso % (Auto) 1 Neut # (Auto) 4.1 Lymph # (Auto) 1.4 [place] # (Auto) 0.7 Eos # (Auto) 0.2 Baso # (Auto) 0.1 Immature Gran # (Auto) 0.05 H Absolute Nucleated RBC 0.00 Immature Gran % 1 H Nucleated RBC % 0 APTT 53.8 H D Sodium 139 Potassium 4.2 D Chloride 102 Carbon Dioxide 27.7 Anion Gap 9 BUN 13 Creatinine 0.7 Estim Creat Clear Calc 68.3 eGFR > 60 BUN/Creatinine Ratio 19 Glucose 108 H Calculated Osmolality 278 Calcium 9.0 Corrected Calcium 9.5 Phosphorus 3.0 Magnesium 2.1 Total Bilirubin 0.6 AST 17 ALT 7 L Alkaline Phosphatase 60 Total Protein 5.5 L Albumin 3.4 Globulin 2.1 L Albumin/Globulin Ratio 1.6 ABG Interpretation ABG results: 06/08/25 06/08/25 15:53 23:16 ABG pH 7.51 H ABG pCO2 33 ABG pO2 44 L* ABG HCO3 26 ABG O2 Saturation 82 L ABG Base Excess 4 H VBG pH 7.46 VBG pCO2 37 VBG pO2 30 VBG Base Excess 3 Quality Measures Quality Measures none Advance care planning discussed with:: patient Assessment & Plan Assessment Current Active Medications: Generic Name Dose Route Start Last Admin Trade Name Freq PRN Reason Stop Dose Admin Acetaminophen 650 mg 06/08/25 18:13 Acetaminophen 325 Mg Tablet PO 07/08/25 18:12 Q4HR PRN Pain Scale 1-3 or Fever Protocol Apixaban 10 mg 06/10/25 21:00 06/11/25 08:53 Apixaban 2.5 Mg Tablet PO 06/17/25 09:01 10 mg BID KARINA Administration Furosemide 40 mg 06/11/25 09:00 06/11/25 08:53 Furosemide 40 Mg Tablet PO 07/11/25 08:59 40 mg QDAY KARINA Administration Ceftazidime 2 gm/ Sodium 50 mls @ 100 mls/hr 06/10/25 08:30 06/11/25 05:31 Chloride IV 06/17/25 08:29 100 mls/hr Q8HR KARINA Administration Levothyroxine Sodium 75 mcg 06/09/25 07:05 06/11/25 05:31 Levothyroxine Sodium 25 Mcg Tablet PO 07/09/25 07:04 75 mcg ACBR KARINA Administration Metoprolol Succinate 50 mg 06/10/25 19:30 06/11/25 08:54 Metoprolol Succinate Xl 25 Mg Tabcr PO 07/10/25 19:29 50 mg QDAY KARINA Administration Montelukast Sodium 10 mg 06/09/25 21:00 06/10/25 20:45 Montelukast Sodium 10 Mg Tablet PO 07/09/25 20:59 10 mg HS KARINA Administration Pantoprazole Sodium 40 mg 06/09/25 09:00 06/11/25 08:54 Pantoprazole Inj 40 Mg Vial IVP 07/09/25 08:59 40 mg QDAY KARINA Administration Prednisone 5 mg 06/09/25 11:45 06/11/25 08:54 Prednisone 5 Mg Tablet PO 07/09/25 11:44 5 mg QDAY KARINA Administration Maxine Blankenship is a 84F with pmhx significant for HTN, glaucoma, hypothyroidism, 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 #Acute hypoxic respiratory failure resolved 11/18 #Saddle pulmonary embolus s/p TNK 06/08/25 #Respiratory alkalosis, resolved Presented with worsening SOB requiring more home O2, eventually requiring high flow NC of 40L to maintain adequate oxygenation. Initially was admitted to ICU where tenecteplase was administered with resolution of respiratory failure. CTA chest shows large multiple bilateral pulmonary artery emboli including saddle type emboli in the right and left main pulmonary artery segment. CXR shows mild to moderate enlargement cardiac contour. Heparin (06/09-06/11) Plan: - CTM O2 saturation, supplemental O2 as needed - Cardiology consulted, recs appreciated: Eliquis 10 mg BID and ambulate as tolerated. Avoid NSAIDs. - Pending PT #UTI, Klebsiella pneumoniae Patient does not complain of any urinary symptoms. On admission UA was collected which showed positive leukocyte esterase, 118 WBC and 3+ bacteria, cultures were collected. UCx grew Klebsiella pneumonia Plan: - Start IV ceftazidime 2 g q8h (06/10- - CTM for urinary symptoms #HFpEF (55-60%) #Pulmonary HTN Seen recently in Dr. Franklin's office and was diagnosed with CHF. Currently denies orthopnea or PND. Previously had dyspnea on exertion with extreme leg edema, however patient was subsequently started on spironolactone 25 mg and Lasix 40 mg with improvement of symptoms. 06/08 echocardiogram shows normal LV size and function approximately EF 55 to 60%. RV size moderately increased with pressure and volume overload RV systolic function is severely decreased. Moderate to severe TR. Moderate to severe pulmonary hypertension with RVSP is 72 mmHg Pulmonary hypertension likely group 4 as secondary to saddle embolism. PESI score 96, Class II intermediate risk 3.2-7.1% 30 day mortality Plan: - Cardiology consulted, recs appreciated - PO Lasix 40 mg QD - Start spironolactone 25 mg QD - Strict I&Os, daily weights - Consider starting SGLT-2 inhibitors outpatient when clinically stable - Follow up outpatient cardiology for further management #Elevated troponins #NSTEMI type II On admission troponins 0.307->0.720->1.251->0.377. Likely 2/2 to pulmonary embolism obstruction causing R heart strain therefore demand ischemia. Plan: - CTM for signs of chest pain #HTN #BYRON Patient has hx of HTN and BYRON and uses CPAP machine at home at night. 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 Benson, and PGY-2 Dr. Preciado. Kinza Cm, DO PGY-1 Internal Medicine Attending Provider Attestation/Addendum I attest that I was physically present for the evaluation, physical examination, lab and imaging review of the patient with the residents. I discussed the case with the residents and agree with the findings and plans of care as documented above. At bedside today, patient states she is feeling better. Continues to be on room air, saturating well. Has been having good urinary output. Pedal edema has been going down. We will swith IV to PO lasix. Heparin drip was also switched to PO Eliquis last night. Patient has been started on metoprolol. Did not receive CPAP overnight, we will discuss with RT and resume CPAP tonight. Started bowel regimen, has not have bowel movement since Tuesday. Continues to be Ceftazidime for Klebsiella UTI. Also resumed Spironolactone. Awaiting PT recommendations. Adrian Benson MD
--- NOTE | 2025-06-11 13:32 | PC.SS ---
DME referral for hospital bed and walker submitted on [employer] response is pending. Documentation placed in patient's chart.
--- NOTE | 2025-06-11 13:45 | PC.NURSE ---
Place patient on room air per doctor Marcelino to how patient tolerates room air. to keep 02 sats above 92% room air. Patient is on 96% room air.
--- NOTE | 2025-06-11 14:16 | PC.CC ---
Per [facility] Eliquis is $493. S/W patient and provided with EliquFamilyID free trial card and [employer] patient assistance program. Per patient, trench digger informed her she would be on lifelong anticoagulation. Discussed options including samples, medicare payment program and transition to warfarin. Encouraged patient to call [facility] to see if she would qualify. Provided contact info should additional needs arise.
--- NOTE | 2025-06-11 15:13 | PC.PT ---
Patient is safe to ambulate to the bathroom with a FWW, 1 staff assist, and O2. RN made aware.
--- NOTE | 2025-06-11 15:30 | PC.SS ---
rounding note:pending consult with Dr. Franklin possible d/c today/ tomorrow. POSTING MACHINE OPERATOR spoke to patient at bedside to discuss d/c options. Patient stated she is aware that PT recommended SNF/HH. She would prefer HH her PCP is Dr. Hira Laguna in [place] last appointment was 05/30/25. Patient stated that her son and daughter are coming from out of state to help her tomorrow and will be staying in the home.
--- NOTE | 2025-06-11 15:56 | PC.NURSE ---
O2 sats are 95% on room. tolerating well.
--- NOTE | 2025-06-11 16:09 | ESPR_ITS ---
Documentation for date of: 06/11/25 Subjective Subjective Interval history: No acute overnight events. Doing fairly well today. On NC intermittently but denies shortness of breath. Also Denies fever, chills, headaches, chest pain, cough, GI or urinary symptoms. Currently on ELIQUIS and METOPROLOL, HR slighyl elevated. Exam Vital Signs Temp Pulse Resp BP Pulse Ox O2 Del Method O2 Flow Rate 98.6 F 90 30 H 146/83 H 97 Nasal Cannula 2 06/11/25 12:00 06/11/25 12:00 06/11/25 12:00 06/11/25 12:00 06/11/25 12:00 06/11/25 12:00 06/11/25 12:00 FiO2 25 06/11/25 12:00 Narrative Exam GENERAL * Normal appearance, NAD HEENT * NCAT.?RICK. Oral mucosa is moist. Patent Nares NECK * Supple, nontender, no JVD. CHEST * RRR, no m/g/r * CTAB, no w/r/r, symmetrical expansion. ABDOMEN * Soft, flat, nontender. No guarding/rebound tenderness/masses. * Bowel sounds presents EXTREMITIES * Bilateral edema of LE SKIN * Warm and dry, no jaundice/rashes. NEUROMUSCULAR * No lumbar or midline, no CVA, no paraspinal muscle spasm or tenderness. * Moves all 4 extremities well, with full ROM and good CSM. * HUGHES x4, CN II-XII grossly intact. * No focal neurologic deficits. PSYCHIATRY * Normal mood and affect, cooperative, no SI or HI or hallucinations. Objective Labs 06/13/25 04:32 06/13/25 04:32 Labs: Laboratory Results - last 24 hr 06/10/25 06/11/25 19:21 05:20 WBC 6.6 RBC 4.08 Hgb 13.7 Hct 40.8 MCV 100 MCH 33.6 MCHC 33.6 RDW Std Deviation 47.7 H Plt Count 223 D Neut % (Auto) 63 Lymph % (Auto) 21 [place] % (Auto) 11 Eos % (Auto) 3 Baso % (Auto) 1 Neut # (Auto) 4.1 Lymph # (Auto) 1.4 [place] # (Auto) 0.7 Eos # (Auto) 0.2 Baso # (Auto) 0.1 Immature Gran # (Auto) 0.05 H Absolute Nucleated RBC 0.00 Immature Gran % 1 H Nucleated RBC % 0 APTT 53.8 H D Sodium 139 Potassium 4.2 D Chloride 102 Carbon Dioxide 27.7 Anion Gap 9 BUN 13 Creatinine 0.7 Estim Creat Clear Calc 68.3 eGFR > 60 BUN/Creatinine Ratio 19 Glucose 108 H Calculated Osmolality 278 Calcium 9.0 Corrected Calcium 9.5 Phosphorus 3.0 Magnesium 2.1 Total Bilirubin 0.6 AST 17 ALT 7 L Alkaline Phosphatase 60 Total Protein 5.5 L Albumin 3.4 Globulin 2.1 L Albumin/Globulin Ratio 1.6 ABG Interpretation ABG results: 06/08/25 06/08/25 15:53 23:16 ABG pH 7.51 H ABG pCO2 33 ABG pO2 44 L* ABG HCO3 26 ABG O2 Saturation 82 L ABG Base Excess 4 H VBG pH 7.46 VBG pCO2 37 VBG pO2 30 VBG Base Excess 3 Quality Measures Quality Measures none Advance care planning discussed with:: patient Assessment & Plan Assessment Current Active Medications: Generic Name Dose Route Start Last Admin Trade Name Freq PRN Reason Stop Dose Admin Acetaminophen 650 mg 06/08/25 18:13 Acetaminophen 325 Mg Tablet PO 07/08/25 18:12 Q4HR PRN Pain Scale 1-3 or Fever Protocol Apixaban 10 mg 06/10/25 21:00 06/11/25 08:53 Apixaban 2.5 Mg Tablet PO 06/17/25 09:01 10 mg BID KARINA Administration Furosemide 40 mg 06/11/25 09:00 06/11/25 08:53 Furosemide 40 Mg Tablet PO 07/11/25 08:59 40 mg QDAY KARINA Administration Ceftazidime 2 gm/ Sodium 50 mls @ 100 mls/hr 06/10/25 08:30 06/11/25 13:40 Chloride IV 06/17/25 08:29 100 mls/hr Q8HR KARINA Administration Levothyroxine Sodium 75 mcg 06/09/25 07:05 06/11/25 05:31 Levothyroxine Sodium 25 Mcg Tablet PO 07/09/25 07:04 75 mcg ACBR KARINA Administration Metoprolol Succinate 50 mg 06/10/25 19:30 06/11/25 08:54 Metoprolol Succinate Xl 25 Mg Tabcr PO 07/10/25 19:29 50 mg QDAY KARINA Administration Montelukast Sodium 10 mg 06/09/25 21:00 06/10/25 20:45 Montelukast Sodium 10 Mg Tablet PO 07/09/25 20:59 10 mg HS KARINA Administration Pantoprazole Sodium 40 mg 06/09/25 09:00 06/11/25 08:54 Pantoprazole Inj 40 Mg Vial IVP 07/09/25 08:59 40 mg QDAY KARINA Administration Prednisone 5 mg 06/09/25 11:45 06/11/25 08:54 Prednisone 5 Mg Tablet PO 07/09/25 11:44 5 mg QDAY KARINA Administration Sennosides 1 tab 06/11/25 13:30 Senna/Docusate Sod 1 Tab Tablet PO 07/11/25 13:29 QDAY PRN CONSTIPATION Protocol Spironolactone 25 mg 06/11/25 16:00 Spironolactone 25 Mg Tablet PO 07/11/25 15:59 QDAY KARINA Plan This is a pleasant 84 year-old female with PMHx of HTN, HFpEF (55-60%), glaucoma, hypothyroidism, osteoarthritis of bilateral hands hips and knees, giant cell arteritis, hx 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 IMPRESSION: 1. Acute massive pulmonary thromboembolism, requiring thrombolytic therapy. 2. Troponin elevation secondary to right ventricle strain and due to massive pulmonary embolism. 3. Moderate to severe pulmonary hypertension due to acute pulmonary thromboembolism. 4. Hypertension with hypertensive cardiovascular disease. 5. Heart failure with preserved ejection fraction. 6. History of temporal arteritis on prednisone. 7. Hiatal hernia. 8. Multiple allergies, allergic rhinitis. 9. Osteoarthritis. DISCUSSION AND RECOMMENDATIONS: The patient is an 84-year-old lady who is known to me has multiple medical problems, comorbidities, hypertension, longstanding temporal arteries, osteoarthritis, came to the hospital with sudden onset of worsening of shortness of breath, severe hypoxemia, classic, acute massive and submassive pulmonary thromboembolism with partial saddle embolus and occlusion of the right and left main pulmonary arteries, responded clinically quite well to thrombolytic therapy. She is doing clinically exceptionally well. We can transfer her out to telemetry later this morning since she is hemodynamically and oxygenation is stable. Also has severe allergies to the nose, starting on montelukast to prevent some allergic rhinitis. I discussed extensively about not using NSAIDs because of anticoagulation for her arthritis and also pantoprazole to prevent any GI problems. PLAN: Overall clinically improving, on room, satting well. HEPARIN GGT was discontinued and now on ELIQUIS 10 mg BID. Resumed METOPROLOL 50 mg XL daily, titrate up to home dose (100 mg BID) as tolerated. Continue with LASIX 40 mg daily to prevent HF exacerbation. Thank you for letting me participate in the care of this patient. We will be glad to follow the patient closely until discharge and see her in office as an outpatient to keep her regular followup appointments. Case was discussed with attending physician, Dr. Franklin. Peggy Santos, DO PGY II This document was transcribed using voice recognition technology. Minor inaccuracies may be present.
[2025-06-11] MEDS: SPIRONOLACTONE 25 MG TABLET PO (16:22)
--- NOTE | 2025-06-11 16:57 | PC.SS ---
Patient informed [facility] that hospital bed no longer required. [facility] contacted [facility] to cancel order for hospital bed. Walker delivery is pending.
--- NOTE | 2025-06-11 20:20 | PC.NURSE ---
Dr. Franklin at pt bedside. notified of pts BP 161/96 HR 97. new med order received and given.
[2025-06-11] MEDS: MONTELUKAST SODIUM 10 MG TABLET PO (20:22)
[2025-06-12] VITALS (12 sets, daily range): BP systolic 111–133; BP diastolic 56–78; PULSE 69–90; RESP 16–98; TEMP 36.1–37; O2SAT 92–98; BMI 15.0
[2025-06-12] MEDS: cefTAZidime 2 GM in SODIUM CHLORIDE 0.9% 50 ML IV ×3 (05:04→21:41)
[2025-06-12] MEDS: LEVOTHYROXINE SODIUM 25 MCG TABLET 75 MCG PO (05:05)
[2025-06-12 06:06] LABS: Basophils # (Auto) 0.1 Thou/mm3 (0.0-0.2); Basophils % (Auto) 1 % (0-2.5); Eosinophils # (Auto) 0.2 Thou/mm3 (0.0-0.5); Eosinophils % (Auto) 3 % (0-10); Hematocrit 41.9 % (36.0-46.0); Hemoglobin 13.8 g/dL (12.0-16.0); Immature Granulocytes Auto 0.04 Thou/mm3 (0.00-0.00); Lymphocytes # (Auto) 1.8 Thou/mm3 (1.0-4.8); Lymphocytes % (Auto) 21 % (10-50); Mean Corpuscular HGB Conc 32.9 g/dl (31.0-37.0); Mean Corpuscular Hemoglobin 33.7 pg (25.0-35.0); Mean Corpuscular Volume 102 fL (80-100); Monocytes # (Auto) 0.9 Thou/mm3 (0.0-0.8); Monocytes % (Auto) 10 % (0-12); Neutrophils # (Auto) 5.6 Thou/mm3 (1.8-7.7); Neutrophils % (Auto) 65 % (37-80); Nucleated Red Blood Cell # 0.00 Thou/mm3 (0.00-0.00); Nucleated Red Blood Cell % 0 /100 WBC (0); Platelet Count 256 Thou/mm3 (140-440); RDW Standard Deviation 49.0 fL (36.4-46.3); Red Blood Count 4.10 Miln/mm3 (4.00-5.20); White Blood Count 8.6 Thou/mm3 (3.6-11.0)
[2025-06-12 06:57] LABS: Alanine Aminotransferase 8 U/L (10-49); Albumin, Serum 3.6 gm/dL (3.4-4.8); Albumin/Globulin Ratio 1.6 (1.2-2.2); Alkaline Phosphatase 62 U/L (46-116); Anion Gap 9 (7-16); Aspartate Amino Transferase 15 U/L (0-34); BUN/Creatinine Ratio 19 Ratio (12-20); Bilirubin,Total 0.7 mg/dL (0.3-1.2); Blood Urea Nitrogen 13 mg/dL (9-23); Calcium 9.4 mg/dL (8.3-10.6); Calcium (Corrected) 9.7 mg/dL (8.5-10.1); Carbon Dioxide 29.5 mMol/L (20.0-31.0); Chloride 100 mMol/L (98-107); Creatinine (Component) 0.7 mg/dL (0.6-1.3); Estimated Creatinine Clearance 66.6 mL/min (>60); Globulin 2.2 gm/dL (2.3-3.5); Glucose 110 mg/dL (74-106); Magnesium 2.1 mg/dL (1.6-2.6); Osmolality,Calculated 276 (275-295); Phosphorous 3.0 mg/dL (2.4-5.1); Potassium 3.8 mMol/L (3.4-5.1); Sodium 138 mMol/L (136-145); Total Protein 5.8 gm/dL (5.7-8.2); eGFR > 60 See Note
[2025-06-12] MEDS: SPIRONOLACTONE 25 MG TABLET PO (08:57)
[2025-06-12] MEDS: APIXABAN 2.5 MG TABLET 10 MG PO ×2 (08:58→20:33)
[2025-06-12] MEDS: METOPROLOL SUCCINATE XL 25 MG TABCR 50 MG PO ×2 (08:58→20:33)
[2025-06-12] MEDS: POTASSIUM CHLORIDE 10% 20 MEQ/15 ML UDC PO (12:20)
--- NOTE | 2025-06-12 12:42 | PC.SS ---
SS met with pt at bedside with family to discuss concerns with DC. Per pt she does not feel comfortable going home alone and wishes to go to SNF. Pts #1 choice is [facility] and 2nd is [facility] but is open if they do not have semi/private rooms.
--- NOTE | 2025-06-12 13:14 | PC.CC ---
PASRR Level 1 complete and downloaded; Level 2 not required.
--- NOTE | 2025-06-12 18:30 | ESPR_ITS ---
<Statement entered by Adrian Benson MD - 06/13/25 21:51> I attest that I was physically present for the evaluation, physical examination, lab and imaging review of the patient with the residents. I discussed the case with the residents and agree with the findings and plans of care as documented below. Adrian Benson MD <Statement entered by Adri Preciado MD - 06/13/25 13:24> Patient was seen and examined at bedside. I agree on the assessment and plan on this note as documented by resident Kinza Cm DO PGY1. 84-year-old female with past medical history as below admitted for acute hypoxic respiratory failure secondary to saddle emboli status post TNK, transition to Eliquis tolerating well. Patient's discharge disposition correction facility, pending placement otherwise stable. Medications titrated per cardiology recommendations tolerating well. Anticipate discharge in the next 24 to 48 hours. Case discussed with attending Dr. Marcelino Preciado MD PGY-2 Documentation for date of: 06/12/25 Subjective Subjective Interval history: No acute overnight events. Patient seen and examined at bedside. Endorses feeling better than yesterday, denies shortness of breath or chest pain. States that she feels very weak and is adamant that she does not want to go home today. Patient eventually agreeable to SNF. Pending SNF placement. Continue current anticoagulation of Eliquis 10 mg twice daily. Continue antibiotics for Klebsiella pneumonia UTI. Patient is saturating low 90s on room air. Vital stable. Exam Vital Signs Temp Pulse Resp BP Pulse Ox O2 Del Method O2 Flow Rate 97.1 F 72 18 133/69 H 95 Room Air 2 06/12/25 12:00 06/12/25 16:00 06/12/25 12:00 06/12/25 12:00 06/12/25 12:00 06/12/25 12:00 06/12/25 07:34 FiO2 25 06/11/25 12:00 Narrative Exam GENERAL: AOx3, no acute distress, lying comfortably in bed HEENT: NC/AT, mucous membranes moist, bilateral sclera anicteric CARDIOVASCULAR: regular rate and rhythm, S1/S2 present, no murmurs appreciated PULMONARY: clear to auscultation bilaterally, no rales/rhonchi/wheezes ABDOMINAL: soft, non-tender, non-distended, no rebound/guarding, bowel sounds present EXTREMITIES: BLE 1+ pitting edema up to knees, BLE tender to palpation with venous stasis dermatitis, +R arm bruising SKIN: warm and dry, intact, no rashes NEURO: CN II-XII grossly intact, no focal deficits, alert, following commands Objective Labs 06/12/25 04:35 06/12/25 04:35 Labs: Laboratory Results - last 24 hr 06/12/25 04:35 WBC 8.6 RBC 4.10 Hgb 13.8 Hct 41.9 MCV 102 H MCH 33.7 MCHC 32.9 RDW Std Deviation 49.0 H Plt Count 256 D Neut % (Auto) 65 Lymph % (Auto) 21 Crenshaw % (Auto) 10 Eos % (Auto) 3 Baso % (Auto) 1 Neut # (Auto) 5.6 Lymph # (Auto) 1.8 Crenshaw # (Auto) 0.9 H Eos # (Auto) 0.2 Baso # (Auto) 0.1 Immature Gran # (Auto) 0.04 H Absolute Nucleated RBC 0.00 Immature Gran % 1 H Nucleated RBC % 0 Sodium 138 Potassium 3.8 Chloride 100 Carbon Dioxide 29.5 Anion Gap 9 BUN 13 Creatinine 0.7 Estim Creat Clear Calc 66.6 eGFR > 60 BUN/Creatinine Ratio 19 Glucose 110 H Calculated Osmolality 276 Calcium 9.4 Corrected Calcium 9.7 Phosphorus 3.0 Magnesium 2.1 Total Bilirubin 0.7 AST 15 ALT 8 L Alkaline Phosphatase 62 Total Protein 5.8 Albumin 3.6 Globulin 2.2 L Albumin/Globulin Ratio 1.6 ABG Interpretation ABG results: 06/08/25 06/08/25 15:53 23:16 ABG pH 7.51 H ABG pCO2 33 ABG pO2 44 L* ABG HCO3 26 ABG O2 Saturation 82 L ABG Base Excess 4 H VBG pH 7.46 VBG pCO2 37 VBG pO2 30 VBG Base Excess 3 Quality Measures Quality Measures none Advance care planning discussed with:: patient Assessment & Plan Assessment Current Active Medications: Generic Name Dose Route Start Last Admin Trade Name Freq PRN Reason Stop Dose Admin Acetaminophen 650 mg 06/08/25 18:13 Acetaminophen 325 Mg Tablet PO 07/08/25 18:12 Q4HR PRN Pain Scale 1-3 or Fever Protocol Apixaban 10 mg 06/10/25 21:00 06/12/25 08:58 Apixaban 2.5 Mg Tablet PO 06/17/25 09:01 10 mg BID KARINA Administration Furosemide 40 mg 06/11/25 09:00 06/12/25 08:59 Furosemide 40 Mg Tablet PO 07/11/25 08:59 Not Given QDAY KARINA Ceftazidime 2 gm/ Sodium 50 mls @ 100 mls/hr 06/10/25 08:30 06/12/25 14:27 Chloride IV 06/17/25 08:29 100 mls/hr Q8HR KARINA Administration Levothyroxine Sodium 75 mcg 06/09/25 07:05 06/12/25 05:05 Levothyroxine Sodium 25 Mcg Tablet PO 07/09/25 07:04 75 mcg ACBR KARINA Administration Metoprolol Succinate 50 mg 06/11/25 21:00 06/12/25 08:58 Metoprolol Succinate Xl 25 Mg Tabcr PO 07/11/25 20:59 50 mg BID KARINA Administration Montelukast Sodium 10 mg 06/09/25 21:00 06/11/25 20:22 Montelukast Sodium 10 Mg Tablet PO 07/09/25 20:59 10 mg HS KARINA Administration Pantoprazole Sodium 40 mg 06/09/25 09:00 06/12/25 09:03 Pantoprazole Inj 40 Mg Vial IVP 07/09/25 08:59 40 mg QDAY KARINA Administration Prednisone 5 mg 06/09/25 11:45 06/12/25 08:56 Prednisone 5 Mg Tablet PO 07/09/25 11:44 5 mg QDAY KARINA Administration Sennosides 1 tab 06/11/25 13:30 Senna/Docusate Sod 1 Tab Tablet PO 07/11/25 13:29 QDAY PRN CONSTIPATION Protocol Spironolactone 25 mg 06/11/25 16:00 06/12/25 08:57 Spironolactone 25 Mg Tablet PO 07/11/25 15:59 25 mg QDAY KARINA Administration Plan Avril Blankenship is a 84F with pmhx significant for HTN, glaucoma, hypothyroidism, 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 #Acute hypoxic respiratory failure resolved 2/2 #Saddle pulmonary embolus s/p TNK 06/08/25 #Respiratory alkalosis, resolved Presented with worsening SOB requiring more home O2, eventually requiring high flow NC of 40L to maintain adequate oxygenation. Initially was admitted to ICU where tenecteplase was administered with resolution of respiratory failure. CTA chest shows large multiple bilateral pulmonary artery emboli including saddle type emboli in the right and left main pulmonary artery segment. CXR shows mild to moderate enlargement cardiac contour. Heparin (06/09-06/11) Plan: - CTM O2 saturation, supplemental O2 as needed - Cardiology consulted, recs appreciated: Eliquis 10 mg BID and ambulate as tolerated. Avoid NSAIDs. - PT recommends SNF #UTI, Klebsiella pneumoniae Patient does not complain of any urinary symptoms. On admission UA was collected which showed positive leukocyte esterase, 118 WBC and 3+ bacteria, cultures were collected. UCx grew Klebsiella pneumonia Plan: - Start IV ceftazidime 2 g q8h (06/10- - CTM for urinary symptoms #HFpEF (55-60%) #Pulmonary HTN Seen recently in Dr. Franklin's office and was diagnosed with CHF. Currently denies orthopnea or PND. Previously had dyspnea on exertion with extreme leg edema, however patient was subsequently started on spironolactone 25 mg and Lasix 40 mg with improvement of symptoms. 06/08 echocardiogram shows normal LV size and function approximately EF 55 to 60%. RV size moderately increased with pressure and volume overload RV systolic function is severely decreased. Moderate to severe TR. Moderate to severe pulmonary hypertension with RVSP is 72 mmHg Pulmonary hypertension likely group 4 as secondary to saddle embolism. PESI score 96, Class II intermediate risk 3.2-7.1% 30 day mortality Plan: - Cardiology consulted, recs appreciated - PO Lasix 40 mg QD and spironolactone 25 mg QD - Strict I&Os, daily weights - Consider starting SGLT-2 inhibitors outpatient when clinically stable - Follow up outpatient cardiology for further management #Elevated troponins #NSTEMI type II On admission troponins 0.307->0.720->1.251->0.377. Likely 2/2 to pulmonary embolism obstruction causing R heart strain therefore demand ischemia. Plan: - CTM for signs of chest pain #HTN #BYRON Patient has hx of HTN and BYRON and uses CPAP machine at home at night. 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 Benson, and PGY-2 Dr. Preciado. Kinza Cm, DO PGY-1 Internal Medicine
[2025-06-12] MEDS: MONTELUKAST SODIUM 10 MG TABLET PO (20:33)
[2025-06-13] VITALS (7 sets, daily range): BP systolic 124–145; BP diastolic 67–83; PULSE 67–86; RESP 18–20; TEMP 36.1–36.9; O2SAT 92–95
--- NOTE | 2025-06-13 00:01 | ESPR_ITS ---
RE: MEGHNA OLIVEROS : 1940 DATE OF SERVICE: 06/12/2025 SUBJECTIVE: The patient is 84-year-old lady, well known to me, recently admitted to the hospital _massive pulmonary embolism with RV overload and troponin elevation. Clinically made a significant improvement. Continues to feel better. She walked about 50 feet today. Does not complain of any chest pain or shortness of breath anymore, but she is generally weak, unable to go home, requiring physical therapy or rehabilitation for a week. She has been switched to p.o. Eliquis with good progress. She has been started on apixaban 10 mg dose twice daily on 06/10/2025. She already received 4 doses with no problems. Clinically, she is not having any chest pain or shortness of breath. OBJECTIVE: Vital Signs: Her blood pressure 132/68, pulse 90. Neck: Supple. No JVD. Lungs: Decreased breath sounds. No rales or rhonchi. Heart: S1, S2 regular. No gallops. No murmurs. Abdomen: Thin and soft. Extremities: No edema. ASSESSMENT/IMPRESSION: 1. Acute pulmonary massive thromboembolism, requiring thrombolytic therapy. 2. Hypertension. 3. Allergic rhinitis with rhinorrhea requiring montelukast, improved. 4. Chronic edema. 5. Temporal arteritis requiring low-dose prednisone. 6. Hiatal hernia. RECOMMENDATIONS: Continue current medications. We will continue apixaban 10 b.i.d. Can be discharged to intermediate facility for rehabilitation following discharge with physical therapy and the patient will have 5 more days from tomorrow of high dose of Eliquis 10 b.i.d., subsequently switch to 5 mg b.i.d. DT: 22:39:49 TT: 23:03:00 Ref: [id number] - TID: [id number] MTDD
[2025-06-13] MEDS: cefTAZidime 2 GM in SODIUM CHLORIDE 0.9% 50 ML IV ×2 (05:09→14:36)
[2025-06-13] MEDS: LEVOTHYROXINE SODIUM 25 MCG TABLET 75 MCG PO (05:09)
[2025-06-13 06:13] LABS: Basophils # (Auto) 0.1 Thou/mm3 (0.0-0.2); Basophils % (Auto) 1 % (0-2.5); Eosinophils # (Auto) 0.3 Thou/mm3 (0.0-0.5); Eosinophils % (Auto) 3 % (0-10); Hematocrit 42.4 % (36.0-46.0); Hemoglobin 14.1 g/dL (12.0-16.0); Immature Granulocytes Auto 0.04 Thou/mm3 (0.00-0.00); Lymphocytes # (Auto) 1.7 Thou/mm3 (1.0-4.8); Lymphocytes % (Auto) 22 % (10-50); Mean Corpuscular HGB Conc 33.3 g/dl (31.0-37.0); Mean Corpuscular Hemoglobin 34.1 pg (25.0-35.0); Mean Corpuscular Volume 102 fL (80-100); Monocytes # (Auto) 0.8 Thou/mm3 (0.0-0.8); Monocytes % (Auto) 10 % (0-12); Neutrophils # (Auto) 5.0 Thou/mm3 (1.8-7.7); Neutrophils % (Auto) 63 % (37-80); Nucleated Red Blood Cell # 0.00 Thou/mm3 (0.00-0.00); Nucleated Red Blood Cell % 0 /100 WBC (0); Platelet Count 262 Thou/mm3 (140-440); RDW Standard Deviation 49.5 fL (36.4-46.3); Red Blood Count 4.14 Miln/mm3 (4.00-5.20); White Blood Count 7.9 Thou/mm3 (3.6-11.0)
[2025-06-13 06:35] LABS: Alanine Aminotransferase 10 U/L (10-49); Albumin, Serum 3.6 gm/dL (3.4-4.8); Albumin/Globulin Ratio 1.6 (1.2-2.2); Alkaline Phosphatase 61 U/L (46-116); Anion Gap 11 (7-16); Aspartate Amino Transferase 21 U/L (0-34); BUN/Creatinine Ratio 20 Ratio (12-20); Bilirubin,Total 0.6 mg/dL (0.3-1.2); Blood Urea Nitrogen 12 mg/dL (9-23); Calcium 9.5 mg/dL (8.3-10.6); Calcium (Corrected) 9.8 mg/dL (8.5-10.1); Carbon Dioxide 27.2 mMol/L (20.0-31.0); Chloride 101 mMol/L (98-107); Creatinine (Component) 0.6 mg/dL (0.6-1.3); Estimated Creatinine Clearance 77.5 mL/min (>60); Globulin 2.2 gm/dL (2.3-3.5); Glucose 116 mg/dL (74-106); Magnesium 2.2 mg/dL (1.6-2.6); Osmolality,Calculated 278 (275-295); Phosphorous 3.0 mg/dL (2.4-5.1); Potassium 4.4 mMol/L (3.4-5.1); Sodium 139 mMol/L (136-145); Total Protein 5.8 gm/dL (5.7-8.2); eGFR > 60 See Note
[2025-06-13] MEDS: SPIRONOLACTONE 25 MG TABLET PO (08:53)
[2025-06-13] MEDS: APIXABAN 2.5 MG TABLET 10 MG PO (08:54)
[2025-06-13] MEDS: METOPROLOL SUCCINATE XL 25 MG TABCR 50 MG PO (08:55)
--- NOTE | 2025-06-13 12:12 | PC.SS ---
Addendum entered by Britta Cardenas 06/13/25 12:35: SS spoke to Patricia with [facility] who quoted trip at $275 for a 1830 ETA, SS went to present to pt who inquired if ST can pick her up instead. SS reached out to Rosanna who stated she will check schedule and let us know a time Original Note: SS called [facility] and spoke to Patricia, she will check schedule and let SS know what time they can accommodate pt DC to ST.
--- NOTE | 2025-06-13 12:44 | PC.SS ---
SS file exchanged PASRR to ST
--- NOTE | 2025-06-13 13:56 | PC.SS ---
SS spoke to Rosanna with [facility] they can fern picker pt between 3-4pm SS informed [place] RN who is covering for Yanelis and also pt who is in agreement
--- NOTE | 2025-06-13 14:37 | ESDS_ITS ---
<Statement entered by Adri Preciado MD - 06/13/25 15:47> Patient was seen and examined by me personally. I have reviewed the below documentation by the team resident and agree with its findings. Discharge plan was discussed with the attending, Dr. Adrian Dodge MD. 84-year-old female with past medical history as below admitted for saddle pulmonary emboli, CTA did show extensive bilateral pulmonary emboli was given TNK, observed in ICU eventually started on heparin drip. Cardiology followed the patient throughout hospital course, patient did not require mechanical thrombectomy and eventually was transition from heparin drip to Eliquis. Otherwise patient does have HFpEF was diuresed during the hospitalization, home medications were resumed per cardiology recommendations. Further plan is to discharge patient home with recommendations as below, counseled on close follow- up with cardiology outpatient. Educated on risks and benefits of anticoagulation, verbalized understanding. Stable for discharge, responded well to hospital treatment. Adri Preciado MD Internal Medicine, PGY-2 Planned Discharge Date 06/13/25 DS: Providers Provider Date of admission: 06/08/25 18:13 Primary care physician: Physician No Primary/Family Admitting Provider: Khoa Lopez MD Attending Provider on Admission: Adrian Benson MD Consults: 06/08/25 18:16 Consult to Cardiology Stat Comment: Pulmonary embolism Consulting Provider: Freddie Pradhan 06/09/25 14:34 Referral Wound Care Routine Comment: 06/09/25 16:38 Consult to Cardiology Routine Comment: Massive PE Consulting Provider: Florencio Franklin 06/10/25 13:52 Referral Physical Therapy Routine Comment: Physician Instructions: Attending Provider on DC: Adrian Benson MD Discharging Provider: Adrian Benson MD DS: Diagnosis Problem List Completed Was Problem List Reviewed/Reconciled?: Yes Hospital Course Hospital Course Hospital course: Summary: Avril Blankenship is a 84F with pmhx significant for HTN, glaucoma, hypothyroidism, 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 Patient presented with recent diagnosis of congestive heart failure week prior to admission and since then has been requiring 2 L of home oxygen which she had never used before. Shortness of breath worsened prompting ED visit. Due to high risk of pulmonary embolism, CT pulmonary angiogram was done which showed large multiple bilateral pulmonary artery emboli including saddle pulmonary embolus. Patient received tenecteplase in the ICU with improvement of shortness of breath and eventual resolution of acute hypoxic respiratory failure. Patient diagnosed with HFpEF 55 to 60% with pulmonary hypertension likely secondary to saddle embolus as echo was done prior to tenecteplase. Heart failure exacerbation was treated with diuretics with improvement of symptoms. Of note, patient's admission troponin slightly elevated, eventually down trended and likely attributed to NSTEMI type II from demand ischemia. During admission, patient was also found to have urinary tract infection without any symptoms. Urine cultures grew Klebsiella pneumonia treated with IV antibiotics. On discharge, patient is hemodynamically stable, labs and vitals reviewed to be stable and patient is ready to be discharged to SNF. Imaging: CTA chest shows large multiple bilateral pulmonary artery emboli including saddle type emboli in the right and left main pulmonary artery segment. CXR shows mild to moderate enlargement cardiac contour. Echocardiogram shows normal LV size and function approximately EF 55 to 60%. RV size moderately increased with pressure and volume overload RV systolic function is severely decreased. Moderate to severe TR. Moderate to severe pulmonary hypertension with RVSP is 72 mmHg Discharge Recommendations: - Please take all medications as prescribed - Take one day of Bactrim to finish your antibiotic course - Take Eliquis 10 mg twice daily until 06/17/25 then transition to Eliquis 5mg t wice a day, treatment per cardiology discretion - Take Metoprolol Succinate 50 mg twice a day uptitrate as you follow up with Sterilizer Operator - Please follow up with your PCP within one week of discharge - Please follow up with home comfort advisor within one week of discharge - If your symptoms worsen, please seek immediate medical attention and return to your nearest emergency room. - If you do not have a PCP, you may follow up at the community healthcare system at [facility] 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 #Hx of giant cell arteritis #Hypothyroidism Kinza Cm, DO Internal Medicine, PGY-1 Status at Discharge Cognitive/behavioral status at discharge: Stable Overall status at discharge: patient is progressing back to baseline Time Spent with Patient Time attestation: Total time spent providing and/or coordinating discharge services:38 min Time spent: Greater than 30 minutes Home Health Home Health Referral Orders: 06/12/25 08:56 Home Health Referral Routine Reason For Exam: Massive PE Home-Bound The patient must either because of illness or injury, need the aid of supportive devices such as crutches, canes, wheelchairs, and walkers; the use of special transportation; or the assistance of another person in order to leave their place of residence; OR have a condition such that leaving his or her home is medically contraindicated. In addition, the patient also meets the following criteria: patient is normally unable to leave the home and leaving home requires considerable taxing effort. Addendum to Home Health Certification Practitioner's Certification: I certify that the patient has been under my care in the hospital and the care of attending physician (see below). We had a [id number] encounter on (see date below). My clinical findings indicate that the patient is home bound per the above criteria and the Home Health Services noted in these orders are medically necessary. The primary reason for the [id number]-[id number] encounter is related to the fact that the patient requires home health services. Date Certifying [id number] Physician Encounter: 06/08/25 Physician's Name who will Assume Oversight for Services: Hira Laguna Physician's Phone No.who will Assume Oversight for Service: [facility] [place] - Community Resources: No PT to Evaluate: Yes PT to evaluate and provide a treatmnet plan to increase patient's mobility and strength. Wound Care: No IV Therapy: No RN Safety Evaluation: Yes RN to evaluate and create a plan of care that will produce positive outcomes. Palliative Treatment: No Palliative treatment and evaluate the need for hospice. Home Health Aide - Personal Care: No Home Health Aide to assist with any ADL's. Exam Vital Signs Temp Pulse Resp BP Pulse Ox O2 Del Method O2 Flow Rate 97.0 F 79 19 124/83 95 Room Air 2 06/13/25 12:00 06/13/25 12:00 06/13/25 12:00 06/13/25 12:00 06/13/25 12:00 06/13/25 12:00 06/13/25 08:00 FiO2 25 06/13/25 08:00 Narrative Exam GENERAL: AOx3, no acute distress, lying comfortably in bed HEENT: NC/AT, mucous membranes moist, bilateral sclera anicteric CARDIOVASCULAR: regular rate and rhythm, S1/S2 present, no murmurs appreciated PULMONARY: clear to auscultation bilaterally, no rales/rhonchi/wheezes ABDOMINAL: soft, non-tender, non-distended, no rebound/guarding, bowel sounds present EXTREMITIES: BLE 1+ pitting edema up to knees, BLE tender to palpation with venous stasis dermatitis, +R arm bruising SKIN: warm and dry, intact, no rashes NEURO: CN II-XII grossly intact, no focal deficits, alert, following commands Discharge Plan Plan Patient Disposition: Xfer Skilled Nsg Fac (SNF) Patient condition on transfer: Stable Care Plan Goals: - Complete UTI Treatment with one day of Bactrim - Eliquis 10 mg twice daily till 06/17/25 AM then transition to Eliquis 5mg twic e a day, treatment per cardiology discretion - Take Metoprolol Succinate 50 mg twice a day uptitrate as you follow up with Sterilizer Operator - Other medications as below - Follow up with cardiology in 1 week - Follow up with PCP in 1-2 weeks - Return to ED if symptoms worsen Prescriptions/Referrals Prescriptions/Med Rec: New Eliquis DVT-PE Treat 30D Start 5 mg (74 tabs) tablets,dose pack See Rx Instructions .ROUTE .COMPLEX Qty: 74 0RF Rx Instructions: Follow package directions sulfamethoxazole-trimethoprim [Bactrim DS] 800-160 mg tablet 1 tab PO BID Qty: 2 0RF spironolactone 25 mg Tablet 25 mg PO QDAY Qty: 0 0RF montelukast 10 mg Tablet 10 mg PO HS Qty: 0 0RF metoprolol succinate 25 mg Tablet Extended Release 24 Hr 50 mg PO BID Qty: 0 0RF pantoprazole 40 mg tablet,delayed release (DR/EC) 40 mg PO QDAY Qty: 30 0RF Continued prednisone 5 mg Tablet 5 mg PO QDAY furosemide [Lasix] 20 mg Tablet 40 mg PO QDAY levothyroxine 75 mcg Capsule 75 mcg PO QDAY Held enalapril maleate 20 mg Tablet 20 mg PO BID Hold Instructions: Resume on 06/20/25. Follow up with Cardiology before resuming metoprolol succinate 100 mg Tablet Extended Release 24 Hr 100 mg PO BID Hold Instructions: Resume on 06/20/25. Follow up with Cardiology before resuming Discontinued potassium chloride 20 mEq Tablet Extended Release 20 meq PO QDAY Referrals: No Primary/Family,Physician [Primary Care Provider] - Florencio Franklin MD [Physician] - Patient/Caregiver Discharge Instructions Discharge Activity: as per physical therapy Education Materials: Understanding Urinary Tract ..., Embolism Pulmonary Dc Print Language: Niuean Stand Alone Forms: Alannah Award Info., Patient Portal Info Letter Discharge Order Discharge Orders: Discharge (Routine); Ordered 06/13/25 Ordered By: Adri Preciado Quality Discharge Quality Measures VTE prophylaxis Attestestation MD Attestation I attest that I was physically present for the evaluation, physical examination, lab and imaging review of the patient with the residents. I discussed the case with the residents and agree with the findings and plans of care as documented above. Adrian Benson MD
--- NOTE | 2025-06-13 15:10 | PC.NURSE ---
Report given Loretta PERSAUD, receiving nurse at [facility]. Extension provided for future questions or concerns.
--- NOTE | 2025-06-13 15:11 | PC.NURSE ---
attempted to contact dieudonne drew to update about pts upcoming discharge to st. did not picking belt operator phone at this time.
== END 2025-06-13 16:13 | disposition skilled nursing facility (03) | DRG 175 ==
LOC: SERX 18:43 → SERHOLD 18:54 → S2SX 21:24 → S2NX 06-09 17:08 → S3SX 06-11 18:57
PROVIDERS: Student in an Organized Health Care Education/Training Program; Admitting Provider Internal Medicine Critical Care Medicine; Emergency Provider Emergency Medicine; Visit Provider Student in an Organized Health Care Education/Training Program
DX: I26.92 Saddle embolus of pulmonary artery without acute cor pulmonale (principal); I21.A1 Myocardial infarction type 2; J96.01 Acute respiratory failure with hypoxia; I50.32 Chronic diastolic (congestive) heart failure; E87.3 Alkalosis; N39.0 Urinary tract infection, site not specified; E03.9 Hypothyroidism, unspecified; M19.041 Primary osteoarthritis, right hand; M19.042 Primary osteoarthritis, left hand; I27.29 Other secondary pulmonary hypertension; I11.0 Hypertensive heart disease with heart failure; M31.5 Giant cell arteritis with polymyalgia rheumatica; E11.9 Type 2 diabetes mellitus without complications; E87.6 Hypokalemia; G47.33 Obstructive sleep apnea (adult) (pediatric); G89.29 Other chronic pain; H40.9 Unspecified glaucoma; I07.1 Rheumatic tricuspid insufficiency; B96.1 Klebsiella pneumoniae [K. pneumoniae] as the cause of diseases classified elsewhere; K44.9 Diaphragmatic hernia without obstruction or gangrene; S40.021A Contusion of right upper arm, initial encounter; J30.9 Allergic rhinitis, unspecified; Z66 Do not resuscitate; Z79.01 Long term (current) use of anticoagulants; Z79.52 Long term (current) use of systemic steroids; Z79.890 Hormone replacement therapy; Z79.899 Other long term (current) drug therapy; Z88.0 Allergy status to penicillin; Z88.1 Allergy status to other antibiotic agents; K59.00 Constipation, unspecified; I44.7 Left bundle-branch block, unspecified; Z88.5 Allergy status to narcotic agent; Z90.49 Acquired absence of other specified parts of digestive tract; Z90.710 Acquired absence of both cervix and uterus; Z96.659 Presence of unspecified artificial knee joint; Z99.3 Dependence on wheelchair
CPT/HCPCS: 36415; 36600; 71045; 71275; 80053; 80307; 81001; 82375; 82803; 83605; 83735; 83880; 84100; 84439; 84484; 85025; 85610; 85730; 87040; 87077; 87081; 87086; 87186; 87811; 93005; 93225; 93306; 93970; 94762; 96365; 96366; 96375; 97163; 99284; A4314; A4649; J0713; J1644; J1938; J2470; J3101; J3475; J3480; J7050; J7512; Q9967; A9270

== ENCOUNTER → 2025-08-28 | Outpatient (CLI) | payer MEDICARE, BC, SELFPAY ==
[2025-08-28 13:31] LABS: Albumin, Serum 4.6 gm/dL (3.4-4.8); Anion Gap 11 (7-16); BUN/Creatinine Ratio 17 Ratio (12-20); Blood Urea Nitrogen 12 mg/dL (9-23); Calcium 10.1 mg/dL (8.3-10.6); Calcium (Corrected) 10.1 mg/dL (8.5-10.1); Carbon Dioxide 27.5 mMol/L (20.0-31.0); Chloride 101 mMol/L (98-107); Creatinine (Component) 0.7 mg/dL (0.6-1.3); Glucose 101 mg/dL (74-106); Osmolality,Calculated 277 (275-295); Phosphorous 2.9 mg/dL (2.4-5.1); Potassium 4.1 mMol/L (3.4-5.1); Sodium 139 mMol/L (136-145); eGFR > 60 See Note
== END | disposition home or self-care (01) ==
LOC: COPL 12:22
PROVIDERS: PCP Internal Medicine; Referring Provider Internal Medicine Cardiovascular Disease; Visit Provider Internal Medicine Cardiovascular Disease
DX: I50.30 Unspecified diastolic (congestive) heart failure (principal)
CPT/HCPCS: 36415; 80069